=== PATIENT | female | born 1945 | race Caucasian/White ===

== ENCOUNTER 2021-08-26 23:25 | Observation (INO) | payer MEDICARE ==
--- NOTE | 2021-08-26 23:33 | ERPHSYRPT ---
- History of Present Illness Time Seen by Provider: 08/26/21 23:32 Source: patient Exam Limitations: clinical condition Physician History: This is a cachectic appearing 76-year-old white female patient of Dr. 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 She denies chest pain. She has not been exposed to any individual that is positive for COVID-19 infection that she is aware of. Patient has a history of COPD and hypertension. Patient is on Coumadin and she is on digoxin. She also has a history of elevated cholesterol. Patient denies fever. She denies abdominal pain. She denies nausea vomiting or diarrhea. Timing/Duration: day(s) (2-3) Activities at Onset: none Severity of Dyspnea-Max: moderate Severity of Dyspnea-Current: moderate Possible Cause: occasional episodes Modifying Factors: Improves With: coughing Associated Symptoms: cough, No chest pain/discomfort Allergies/Adverse Reactions: No Known Drug Allergies Allergy (Verified 08/27/21 03:03) Home Medications: Aspirin EC 81 mg [Ecotrin 81 mg] 81 mg PO DAILY 03/25/13 [History] Digoxin 0.125 mg Tablet [Lanoxin 0.125MG TABLET] 0.125 mg PO DAILY 12/29 [History] Furosemide 20 mg [Lasix 20 mg] 20 mg PO DAILY 03/25/13 [History] Potassium Chloride 20 Meq Tab [Potassium Chloride 20 MEQ TABLET] 20 meq PO DAILY 03/25/13 [History] Calcium Carbonate/Vitamin D3 [Calcium 500-Vit D3 125 Caplet] 1 each PO BID 03/21/15 [History] Fluticasone/Salmeterol [Advair Hfa 115-21 Mcg Inhaler] 8 gm IH BID 03/21/15 [History] Ipratropium/Albuterol Sulfate [Combivent Inhaler] 0 gm IH TID PRN 03/21/15 [History] Losartan Potassium 50 mg [Cozaar 50 MG] 50 mg PO QHS 03/21/15 [History] Metoprolol Succinate 50 mg [Toprol Xl 50 MG] 50 mg PO DAILY 03/21/15 [History] Pravastatin Sodium 40 mg PO QHS 03/21/15 [History] Warfarin Sodium 5 mg [Coumadin 5 MG] 2.5 mg PO 2XW 03/21/15 [History] Warfarin Sodium 5 mg [Coumadin 5 MG] 5 mg PO DAILY 03/21/15 [History] Hx Tetanus, Diphtheria Vaccination/Date Given: No Hx Influenza Vaccination/Date Given: No Hx Pneumococcal Vaccination/Date Given: No Travel Risk - International Travel Have you traveled outside of the country in past 3 weeks: No - Coronavirus Screening Are you exhibiting any of the following symptoms?: Yes Symptoms: Cough: New Onset, Shortness of Breath Close contact with a COVID-19 positive Pt in past 14-21 Days: No - Review of Systems Constitutional: Weakness Eyes: No Symptoms Ears, Nose, & Throat: No Symptoms Respiratory: Cough, Dyspnea Cardiac: No Symptoms, No Chest Pain Abdominal/Gastrointestinal: No Symptoms Genitourinary Symptoms: No Symptoms Musculoskeletal: No Symptoms Skin: No Symptoms Neurological: No Symptoms Psychological: No Symptoms Endocrine: No Symptoms Hematologic/Lymphatic: No Symptoms Immunological/Allergic: No Symptoms All Other Systems: Reviewed and Negative - Past Medical History Pertinent Past Medical History: Yes Neurological History: No Pertinent History ENT History: No Pertinent History Cardiac History: Arrhythmia, Hypertension Respiratory History: COPD Endocrine Medical History: No Pertinent History Musculoskeletal History: No Pertinent History GI Medical History: No Pertinent History History: No Pertinent History Psycho-Social History: No Pertinent History Female Reproductive Disorders: No Pertinent History - Past Surgical History Past Surgical History: Yes Cardiac: CABG, Other Gastrointestinal: No Pertinent History Genitourinary: No Pertinent History Musculoskeletal: No Pertinent History Female Surgical History: No Pertinent History Other Surgical History: tonsils as a child, open heart 2yrs ago - Social History Smoking Status: Never smoker How long have you smoked: all life Exposure to second hand smoke: Yes Drug Use: none Patient Lives Alone: No - Nursing Vital Signs Nursing Vital Signs: Initial Vital Signs Temperature 98.1 F 08/26/21 23:36 Pulse Rate 145 H 08/26/21 23:36 Respiratory Rate 28 H 08/26/21 23:36 Blood Pressure 147/97 08/26/21 23:36 O2 Sat by Pulse Oximetry 94 L 08/26/21 23:36 Pain Scale Pain Intensity 0 - Physical Exam General Appearance: mild distress, alert, anxiety, cachetic Eye Exam: PERRL/EOMI, eyes nml inspection Ears, Nose, Throat Exam: hearing grossly normal, normal ENT inspection, normal pharynx Neck Exam: normal inspection, non-tender, supple, full range of motion Respiratory Exam: normal breath sounds, lungs clear, airway intact, No chest tenderness, No respiratory distress Cardiovascular/Chest Exam: tachycardia, irregular Abdominal/Gastrointestinal Exam: soft, normal bowel sounds, No tenderness Rectal Exam: not done Extremity Exam: non-tender, normal range of motion, normal inspection Neurologic Exam: alert, oriented x 3, cooperative, screen operator II-XII nml as tested Skin Exam: normal color, warm, dry Lymphatic Exam: No adenopathy SpO2 Interpretation: borderline oxygenation O2 Delivery: Room Air - Course Nursing assessment & vital signs reviewed: Yes EKG Interpreted by Me: RATE (145), A-fib, Other (No acute ischemic changes. Patient has atrial fibrillation with RVR.) Ordered Tests: Active Orders 24 hr Category Date Time Status Sales Developer STAT Care 08/26/21 23:47 Active EKG-ER Only STAT Care 08/26/21 23:46 Active IV Insertion STAT Care 08/26/21 23:46 Active Oxygen-ED Only Nasal Cannula 2 lpm Care 08/26/21 23:46 Active CHEST 1 VIEW (PORTABLE) Stat Exams 08/27/21 00:50 Taken CHEST WITH CONTRAST [CT] Stat Exams 08/27/21 00:43 Taken Lactic Acid Stat Lab 08/26/21 23:48 Completed Lactic Acid Stat Lab 08/27/21 02:58 Completed TROPONIN Q3H Lab 08/27/21 03:03 Received TROPONIN Q3H Lab 08/27/21 05:46 Ordered TROPONIN Q3H Lab 08/27/21 08:46 Ordered TROPONIN Q3H Lab 08/27/21 11:46 Ordered Transfer Order Routine Transfer 08/27/21 Ordered Medication Summary Generic Name Dose Route Start Last Admin Trade Name Freq PRN Reason Stop Dose Admin Sodium Chloride 1,000 mls @ 100 mls/hr 08/26/21 23:45 08/26/21 23:55 Sodium Chloride 0.9% 1000 Ml IV 09/25/21 23:44 100 mls/hr .Q10H GARRETT Administration Diltiazem HCl 100 mls @ 5 mls/hr 08/26/21 23:59 08/27/21 00:05 Cardizem Drip 100 Mg/100 Ml D5w IV 09/25/21 23:58 5 mg/hr .Q20H PRN 5 mls/hr HEART RATE/ A-FIB Administration Protocol 5 MG/HR Ampicillin Sodium/Sulbactam 100 mls @ 300 mls/hr 08/27/21 03:11 Sodium 3 g/ Sodium Chloride IV 08/27/21 03:30 STAT ONE Discontinued Medications Generic Name Dose Route Start Last Admin Trade Name Freq PRN Reason Stop Dose Admin Ampicillin Sodium/Sulbactam Sodium Confirm 08/27/21 03:15 Ampicillin /Sulbactam 3 G/Vial Administered 08/27/21 03:16 Dose 3 g .ROUTE .STK-MED ONE Diltiazem HCl 15 mg 08/26/21 23:47 08/26/21 23:55 Diltiazem Hcl Iv 5 Mg/Ml Vial IV 08/26/21 23:48 15 mg STAT ONE Administration Diltiazem HCl Confirm 08/26/21 23:52 Diltiazem Hcl Iv 5 Mg/Ml Vial Administered 08/26/21 23:53 Dose 50 mg IV .STK-MED ONE Enoxaparin Sodium Confirm 08/27/21 03:20 Enoxaparin Sodium 60 Mg/0.6 Ml Syringe Administered 08/27/21 03:21 Dose 60 mg SQ .STK-MED ONE Furosemide 20 mg 08/27/21 03:09 Furosemide 20 Mg/Vial IV 08/27/21 03:10 STAT ONE Furosemide Confirm 08/27/21 03:15 Furosemide 40 Mg/4 Ml Vial Administered 08/27/21 03:16 Dose 40 mg .ROUTE .STK-MED ONE Sodium Chloride Confirm 08/27/21 03:16 Sodium Chloride 0.9% 100 Ml Bag Administered 08/27/21 03:17 Dose 100 mls @ ud .ROUTE .STK-MED ONE Lab/Rad Data: Laboratory Result Diagrams 08/26/21 00:06 08/26/21 00:06 Laboratory Results 08/27/21 08/27/21 08/26/21 Range/Units 02:58 00:01 00:06 WBC (4.0-10.5) K/mm3 RBC (4.1-5.4) M/mm3 Hgb (12.0-16.0) gm/dl Hct (35-47) % MCV (78-100) fl MCH (26-32) pg MCHC (32-36) g/dl RDW (11.5-14.0) % Plt Count (150-450) K/mm3 MPV (7.5-11.0) fl Gran % (36.0-66.0) % Eos # (Auto) (0-0.5) Absolute Lymphs (auto) (1.0-4.6) Absolute Monos (auto) (0.0-1.3) Lymphocytes % (24.0-44.0) % Monocytes % (0.0-12.0) % Eosinophils % (0.00-5.0) % Basophils % (0.0-0.4) % Absolute Granulocytes (1.4-6.9) Basophils # (0-0.4) PT (9.4-12.5) SECONDS INR (0.8-3.0) D-Dimer (215-500) ng/mL Sodium (137-145) mmol/L Potassium (3.5-5.1) mmol/L Chloride (98-107) mmol/L Carbon Dioxide (22-30) mmol/L Anion Gap (5-15) MEQ/L BUN (7-17) mg/dL Creatinine (0.52-1.04) mg/dL Estimated GFR ML/MIN Glucose (74-106) mg/dL Lactic Acid 1.2 2.3 H (0.4-2.0) Calcium (8.4-10.2) mg/dL Total Bilirubin (0.2-1.3) mg/dL AST (14-36) U/L ALT (0-35) U/L Alkaline Phosphatase (38-126) U/L Troponin I (0.000-0.034) ng/mL NT-Pro-B Natriuret Pep (0-1800) pg/mL Serum Total Protein (6.3-8.2) g/dL Albumin (3.5-5.0) g/dL Digoxin < 0.4 L (0.8-1.9) ng/mL Monoscreen (Negative) Influenza Type A Ag (NEGATIVE) Influenza Type B Ag (NEGATIVE) Group A Strep Antibody (NEGATIVE) 03/10/22 03/10/22 03/10/22 Range/Units 00:06 00:06 00:06 WBC 16.4 H (4.0-10.5) K/mm3 RBC 4.92 (4.1-5.4) M/mm3 Hgb 14.4 (12.0-16.0) gm/dl Hct 44.4 (35-47) % MCV 90.2 (78-100) fl MCH 29.3 (26-32) pg MCHC 32.4 (32-36) g/dl RDW 14.6 H (11.5-14.0) % Plt Count 272 (150-450) K/mm3 MPV 9.5 (7.5-11.0) fl Gran % 88.8 H (36.0-66.0) % Eos # (Auto) 0.03 (0-0.5) Absolute Lymphs (auto) 0.95 L (1.0-4.6) Absolute Monos (auto) 0.84 (0.0-1.3) Lymphocytes % 5.8 L (24.0-44.0) % Monocytes % 5.1 (0.0-12.0) % Eosinophils % 0.2 (0.00-5.0) % Basophils % 0.1 (0.0-0.4) % Absolute Granulocytes 14.57 H (1.4-6.9) Basophils # 0.02 (0-0.4) PT 17.8 H (9.4-12.5) SECONDS INR 1.51 (0.8-3.0) D-Dimer 1474 H* (215-500) ng/mL Sodium 139 (137-145) mmol/L Potassium 4.4 (3.5-5.1) mmol/L Chloride 103 (98-107) mmol/L Carbon Dioxide 25 (22-30) mmol/L Anion Gap 14.9 (5-15) MEQ/L BUN 30 H (7-17) mg/dL Creatinine 0.81 (0.52-1.04) mg/dL Estimated GFR > 60.0 ML/MIN Glucose 136 H (74-106) mg/dL Lactic Acid (0.4-2.0) Calcium 10.1 (8.4-10.2) mg/dL Total Bilirubin 0.80 (0.2-1.3) mg/dL AST 37 H (14-36) U/L ALT 22 (0-35) U/L Alkaline Phosphatase 107 (38-126) U/L Troponin I (0.000-0.034) ng/mL NT-Pro-B Natriuret Pep 4630 H (0-1800) pg/mL Serum Total Protein 7.2 (6.3-8.2) g/dL Albumin 4.3 (3.5-5.0) g/dL Digoxin (0.8-1.9) ng/mL Monoscreen (Negative) Influenza Type A Ag (NEGATIVE) Influenza Type B Ag (NEGATIVE) Group A Strep Antibody (NEGATIVE) 08/26/21 08/26/21 08/26/21 Range/Units 00:05 00:05 00:05 WBC (4.0-10.5) K/mm3 RBC (4.1-5.4) M/mm3 Hgb (12.0-16.0) gm/dl Hct (35-47) % MCV (78-100) fl MCH (26-32) pg MCHC (32-36) g/dl RDW (11.5-14.0) % Plt Count (150-450) K/mm3 MPV (7.5-11.0) fl Gran % (36.0-66.0) % Eos # (Auto) (0-0.5) Absolute Lymphs (auto) (1.0-4.6) Absolute Monos (auto) (0.0-1.3) Lymphocytes % (24.0-44.0) % Monocytes % (0.0-12.0) % Eosinophils % (0.00-5.0) % Basophils % (0.0-0.4) % Absolute Granulocytes (1.4-6.9) Basophils # (0-0.4) PT (9.4-12.5) SECONDS INR (0.8-3.0) D-Dimer (215-500) ng/mL Sodium (137-145) mmol/L Potassium (3.5-5.1) mmol/L Chloride (98-107) mmol/L Carbon Dioxide (22-30) mmol/L Anion Gap (5-15) MEQ/L BUN (7-17) mg/dL Creatinine (0.52-1.04) mg/dL Estimated GFR ML/MIN Glucose (74-106) mg/dL Lactic Acid (0.4-2.0) Calcium (8.4-10.2) mg/dL Total Bilirubin (0.2-1.3) mg/dL AST (14-36) U/L ALT (0-35) U/L Alkaline Phosphatase (38-126) U/L Troponin I (0.000-0.034) ng/mL NT-Pro-B Natriuret Pep (0-1800) pg/mL Serum Total Protein (6.3-8.2) g/dL Albumin (3.5-5.0) g/dL Digoxin (0.8-1.9) ng/mL Monoscreen NEGATIVE (Negative) Influenza Type A Ag NEGATIVE (NEGATIVE) Influenza Type B Ag NEGATIVE (NEGATIVE) Group A Strep Antibody NOT DETECTED (NEGATIVE) 08/26/21 Range/Units 00:00 WBC (4.0-10.5) K/mm3 RBC (4.1-5.4) M/mm3 Hgb (12.0-16.0) gm/dl Hct (35-47) % MCV (78-100) fl MCH (26-32) pg MCHC (32-36) g/dl RDW (11.5-14.0) % Plt Count (150-450) K/mm3 MPV (7.5-11.0) fl Gran % (36.0-66.0) % Eos # (Auto) (0-0.5) Absolute Lymphs (auto) (1.0-4.6) Absolute Monos (auto) (0.0-1.3) Lymphocytes % (24.0-44.0) % Monocytes % (0.0-12.0) % Eosinophils % (0.00-5.0) % Basophils % (0.0-0.4) % Absolute Granulocytes (1.4-6.9) Basophils # (0-0.4) PT (9.4-12.5) SECONDS INR (0.8-3.0) D-Dimer (215-500) ng/mL Sodium (137-145) mmol/L Potassium (3.5-5.1) mmol/L Chloride (98-107) mmol/L Carbon Dioxide (22-30) mmol/L Anion Gap (5-15) MEQ/L BUN (7-17) mg/dL Creatinine (0.52-1.04) mg/dL Estimated GFR ML/MIN Glucose (74-106) mg/dL Lactic Acid (0.4-2.0) Calcium (8.4-10.2) mg/dL Total Bilirubin (0.2-1.3) mg/dL AST (14-36) U/L ALT (0-35) U/L Alkaline Phosphatase (38-126) U/L Troponin I 0.029 (0.000-0.034) ng/mL NT-Pro-B Natriuret Pep (0-1800) pg/mL Serum Total Protein (6.3-8.2) g/dL Albumin (3.5-5.0) g/dL Digoxin (0.8-1.9) ng/mL Monoscreen (Negative) Influenza Type A Ag (NEGATIVE) Influenza Type B Ag (NEGATIVE) Group A Strep Antibody (NEGATIVE) - Progress Progress: improved, re-examined Air Movement: good Progress Note: 08/27/21 03:17 Medical decision making: This patient presented with atrial fibrillation with RVR. She has CHF. CAT scan of the chest shows no definite central pulmonary embolus. She has an esophagus that is patulous contains bubbly material concerning for reflux she has left greater than right basilar confluent opac ities which are compatible with aspiration or infection. She also presented with mild hypoxia. I spoke with Dr. Goldman, the patient's primary care physician, I reviewed the patient history, radiographic findings, EKG findings and results of the laboratory work-up. We will place the patient intensive care unit and provide her with Cardizem drip, intravenous Lasix, intravenous antibiotics, oxygen supplementation. I will give her a dose of Lovenox subcutaneously. I will repeat labs in the morning. Blood Culture(s) Obtained: Yes Antibiotics given: Yes Discussed with : Driss Counseled pt/family regarding: lab results, diagnosis, rad results - Departure Departure Disposition: In-patient Admission Clinical Impression: Atrial fibrillation with RVR, CHF (congestive heart failure), Hypoxia, Aspiration pneumonia Condition: Fair Critical Care Time: Yes Critical Care Time(excluding separately billable procedures): Critical 30-74 mins (45 minutes) Referrals: KIM GOLDMAN MD [Primary Care Provider] - Follow up/PCP as directed Instructions: Heart Failure
[2021-08-26] MEDS ORDERED: Sodium Chloride 0.9% 1000 ML 1,000 ML IV SCH (23:45)
[2021-08-26] MEDS ORDERED: Cardizem IV 50 MG/10 ML IV ONE ×2 (23:47→23:52)
[2021-08-26] MEDS ORDERED: Sodium Chloride 0.9% 1000 ML 1,000 ML ONE (23:52)
[2021-08-26] MEDS ORDERED: CARDIZEM DRIP 100 MG/100 ML D5W 100 ML IV PRN (23:59)
[2021-08-27] MEDS ORDERED: CARDIZEM DRIP 100 MG/100 ML D5W 100 ML IV ONE
[2021-08-27 00:11] LABS: Absolute Neutrophil Ct (ANC) 14.57 (1.4-6.9); Basophil (Absolute #) 0.02 (0-0.4); Eosinophil % 0.2 % (0.00-5.0); Eosinophil (Absolute #) 0.03 (0-0.5); Hematocrit 44.4 % (35-47); Hemoglobin 14.4 gm/dl (12.0-16.0); Lymphocyte (Absolute #) 0.95 (1.0-4.6); Lymphocytes % 5.8 % (24.0-44.0); Mean Cell Volume 90.2 fl (78-100); Mean Corpuscular Hemoglobin 29.3 pg (26-32); Mean Corpuscular Hgb Concent. 32.4 g/dl (32-36); Mean Platelet Volume 9.5 fl (7.5-11.0); Monocyte (Absolute #) 0.84 (0.0-1.3); Monocytes % 5.1 % (0.0-12.0); Neutrophil % 88.8 % (36.0-66.0); Platelet Count 272 K/mm3 (150-450); Red Blood Count 4.92 M/mm3 (4.1-5.4); Red Cell Distribution Width 14.6 % (11.5-14.0); White Blood Count 16.4 K/mm3 (4.0-10.5)
[2021-08-27 00:19] LABS: INR 1.51 (0.8-3.0); PROTIME 17.8 SECONDS (9.4-12.5)
[2021-08-27 00:31] LABS: ALBUMIN 4.3 g/dL (3.5-5.0); ALKALINE PHOSPHATASE 107 U/L (38-126); ANION GAP 14.9 MEQ/L (5-15); BLOOD UREA NITROGEN 30 mg/dL (7-17); CHLORIDE 103 mmol/L (98-107); Calcium 10.1 mg/dL (8.4-10.2); Carbon Dioxide 25 mmol/L (22-30); Creatinine 1 0.81 mg/dL (0.52-1.04); EST GLOMERULAR FILTRATION RATE > 60.0 ML/MIN; Glucose 136 mg/dL (74-106); NT PRO BNP 4630 pg/mL (0-1800); Potassium 4.4 mmol/L (3.5-5.1); SGOT/AST 37 U/L (14-36); SGPT/ALT 22 U/L (0-35); SODIUM 139 mmol/L (137-145); Total Protein 7.2 g/dL (6.3-8.2)
[2021-08-27 00:40] LABS: INFLUENZA A NEGATIVE (NEGATIVE); INFLUENZA B NEGATIVE (NEGATIVE)
[2021-08-27] MEDS ORDERED: Lasix 20 MG/2 ML IV ONE (03:09)
[2021-08-27] MEDS ORDERED: Unasyn 3 GM Vial*** 3 G in Sodium Chloride 0.9% 100 ML BAG 100 ML IV ONE (03:11)
[2021-08-27] MEDS ORDERED: Lasix 40 MG/4 ML ONE (03:15)
[2021-08-27] MEDS ORDERED: Unasyn 3 GM Vial ONE (03:15)
[2021-08-27] MEDS ORDERED: Sodium Chloride 0.9% 100 ML BAG 100 ML ONE (03:16)
[2021-08-27] MEDS ORDERED: ENOXAPARIN SODIUM SQ ONE ×2 (03:20→03:28)
[2021-08-27 04:16] LABS: INFLUENZA A NEGATIVE (NEGATIVE); INFLUENZA B NEGATIVE (NEGATIVE); RESPIRATORY SYNCTIAL VIRUS NEGATIVE (Negative); SARS-CoV-2 Xpert Express NEGATIVE (NEGATIVE)
[2021-08-27] MEDS ORDERED: Zofran 4 MG/2 ML VIAL IV PRN (05:01)
[2021-08-27] MEDS ORDERED: CARDIZEM DRIP 100 MG/100 ML D5W 100 ML IV PRN (05:01)
[2021-08-27] MEDS ORDERED: TYLENOL 325 MG PO PRN (05:01)
[2021-08-27] MEDS ORDERED: Unasyn 1.5GM Vial*** 1.5 G in Sodium Chloride 100ML MINI-BAG PLUS 100 ML IV SCH (05:01)
[2021-08-27] MEDS ORDERED: PROVENTIL 2.5 MG/3 ML NEB IH PRN (05:31)
--- NOTE | 2021-08-27 09:06 | PCM.HP ---
History of Present Illness - Chief Complaint Chief Complaint: afib with RVR History of Present Illness: is a 76 year old female who presented to the ER last night with complaints of shortness of breath and feeling poorly for several days, she has some nonproductive cough and no fever. states she has been compliant with her home meds, has a history of a fib and prior CABG, follows with Dr Matthew. - Review of Systems Constitutional: No Fever, No Chills Respiratory: Short Of Breath Cardiac: No Chest Pain Skin: No Rash Neurological: No Dizziness, No Focal Weakness, No Sensory Changes Medications & Allergies Home Medications: Home Medication List Aspirin EC 81 mg [Ecotrin 81 mg] 81 mg PO DAILY 03/25/13 [History Confirmed 03/21/15] Digoxin 0.125 mg Tablet [Lanoxin 0.125MG TABLET] 0.125 mg PO DAILY 03/25/13 [History Confirmed 03/21/15] Furosemide 20 mg [Lasix 20 mg] 20 mg PO DAILY 03/25/13 [History Confirmed 03/21/15] Potassium Chloride 20 Meq Tab [Potassium Chloride 20 MEQ TABLET] 20 meq PO DAILY 03/25/13 [History Confirmed 03/21/15] Calcium Carbonate/Vitamin D3 [Calcium 500-Vit D3 125 Caplet] 1 each PO BID 03/21/15 [History Confirmed 03/21/15] Fluticasone/Salmeterol [Advair Hfa 115-21 Mcg Inhaler] 8 gm IH BID 03/21/15 [History Confirmed 03/21/15] Ipratropium/Albuterol Sulfate [Combivent Inhaler] 0 gm IH TID PRN 03/21/15 [History Confirmed 03/21/15] Losartan Potassium 50 mg [Cozaar 50 MG] 50 mg PO QHS 03/21/15 [History Confirmed 03/21/15] Metoprolol Succinate 50 mg [Toprol Xl 50 MG] 50 mg PO DAILY 03/21/15 [History Confirmed 03/21/15] Pravastatin Sodium 40 mg PO QHS 03/21/15 [History Confirmed 03/21/15] Warfarin Sodium 5 mg [Coumadin 5 MG] 2.5 mg PO 2XW 03/21/15 [History Confirmed 03/21/15] Warfarin Sodium 5 mg [Coumadin 5 MG] 5 mg PO DAILY 03/21/15 [History Confirmed 03/21/15] ALPRAZolam [Xanax 0.5 mg] 0.5 mg PO HSPRN PRN #30 tablet 03/23/15 [Rx] Levofloxacin [Levofloxacin 250MG Tablet] 250 mg PO DAILY #7 tab 03/23/15 [Rx] Allergies/Adverse Reactions: Allergies Allergy/AdvReac Type Severity Reaction Status Date / Time No Known Drug Allergies Allergy Verified 08/27/21 03:03 - Past Medical History Past Medical History: Yes Neurological History: No Pertinent History ENT History: No Pertinent History Cardiac History: Congestive Heart Failure, Coronary Artery Disease Respiratory History: COPD Endocrine Medical History: No Pertinent History Musculoskelatal History: No Pertinent History GI Medical History: No Pertinent History History: Bladder Cancer Pyscho-Social History: Anxiety Reproductive Disorders: No Pertinent History - Female History Are you now?: No - Past Surgical History Past Surgical History: Yes (CABG) Neuro Surgical History: No Pertinent History Cardiac History: CABG Respiratory Surgery: No Pertinent History GI Surgical History: No Pertinent History Genitourinary Surgical Hx: Other Musculskeletal Surgical Hx: No Pertinent History Female Surgical History: No Pertinent History Other Surgical History: tonsils as a child, open heart 2yrs ago - Social History Smoking Status: Current every day smoker How long have you smoked: 60 yrs Exposure to second hand smoke: Yes Alcohol: Rarely Drug Use: none - Physical Exam Vital Signs: Vital Signs - 24 hr Temp Pulse Resp BP BP Pulse Ox 08/27/21 07:46 71 08/27/21 07:43 99.4 F 77 22 138/66 93 L 08/27/21 07:04 96 H 22 93 L 08/27/21 05:50 93 H 23 94 L 08/27/21 05:25 97.2 F 88 25 H 135/70 94 L 08/27/21 04:10 82 18 129/86 97 08/27/21 03:19 89 18 142/76 97 08/27/21 02:08 91 H 18 150/93 96 08/27/21 01:00 88 20 161/88 97 08/27/21 00:05 88 20 144/87 144/87 96 03/10/22 23:36 98.1 F 145 H 28 H 147/97 93 L General Appearance: no apparent distress, alert Neurologic Exam: alert, oriented x 3, cooperative, normal mood/affect, nml cerebellar function, nml station & gait, sensation nml, No motor deficits Respiratory Exam: rhonchi Cardiovascular Exam: irregular Gastrointestinal/Abdomen Exam: soft, normal bowel sounds, No tenderness, No mass Extremity Exam: normal inspection, normal range of motion, pelvis stable Skin Exam: normal color, warm, dry, No rash Results - Labs Lab/Micro Results: Lab Results-Last 24 Hours 08/26/21 08/26/21 08/26/21 Range/Units 00:00 00:05 00:05 WBC (4.0-10.5) K/mm3 RBC (4.1-5.4) M/mm3 Hgb (12.0-16.0) gm/dl Hct (35-47) % MCV (78-100) fl MCH (26-32) pg MCHC (32-36) g/dl RDW (11.5-14.0) % Plt Count (150-450) K/mm3 MPV (7.5-11.0) fl Gran % (36.0-66.0) % Eos # (Auto) (0-0.5) Absolute Lymphs (auto) (1.0-4.6) Absolute Monos (auto) (0.0-1.3) Lymphocytes % (24.0-44.0) % Monocytes % (0.0-12.0) % Eosinophils % (0.00-5.0) % Basophils % (0.0-0.4) % Absolute Granulocytes (1.4-6.9) Basophils # (0-0.4) PT (9.4-12.5) SECONDS INR (0.8-3.0) D-Dimer (215-500) ng/mL Sodium (137-145) mmol/L Potassium (3.5-5.1) mmol/L Chloride (98-107) mmol/L Carbon Dioxide (22-30) mmol/L Anion Gap (5-15) MEQ/L BUN (7-17) mg/dL Creatinine (0.52-1.04) mg/dL Estimated GFR ML/MIN Glucose (74-106) mg/dL Lactic Acid (0.4-2.0) Calcium (8.4-10.2) mg/dL Total Bilirubin (0.2-1.3) mg/dL AST (14-36) U/L ALT (0-35) U/L Alkaline Phosphatase (38-126) U/L Troponin I 0.029 (0.000-0.034) ng/mL NT-Pro-B Natriuret Pep (0-1800) pg/mL Serum Total Protein (6.3-8.2) g/dL Albumin (3.5-5.0) g/dL Digoxin (0.8-1.9) ng/mL Monoscreen (Negative) Influenza Type A Ag NEGATIVE (NEGATIVE) Influenza Type B Ag NEGATIVE (NEGATIVE) RSV (PCR) (Negative) SARS-CoV-2 (PCR) (NEGATIVE) Group A Strep Antibody NOT DETECTED (NEGATIVE) 08/26/21 08/26/21 08/26/21 Range/Units 00:05 00:06 00:06 WBC 16.4 H (4.0-10.5) K/mm3 RBC 4.92 (4.1-5.4) M/mm3 Hgb 14.4 (12.0-16.0) gm/dl Hct 44.4 (35-47) % MCV 90.2 (78-100) fl MCH 29.3 (26-32) pg MCHC 32.4 (32-36) g/dl RDW 14.6 H (11.5-14.0) % Plt Count 272 (150-450) K/mm3 MPV 9.5 (7.5-11.0) fl Gran % 88.8 H (36.0-66.0) % Eos # (Auto) 0.03 (0-0.5) Absolute Lymphs (auto) 0.95 L (1.0-4.6) Absolute Monos (auto) 0.84 (0.0-1.3) Lymphocytes % 5.8 L (24.0-44.0) % Monocytes % 5.1 (0.0-12.0) % Eosinophils % 0.2 (0.00-5.0) % Basophils % 0.1 (0.0-0.4) % Absolute Granulocytes 14.57 H (1.4-6.9) Basophils # 0.02 (0-0.4) PT (9.4-12.5) SECONDS INR (0.8-3.0) D-Dimer (215-500) ng/mL Sodium 139 (137-145) mmol/L Potassium 4.4 (3.5-5.1) mmol/L Chloride 103 (98-107) mmol/L Carbon Dioxide 25 (22-30) mmol/L Anion Gap 14.9 (5-15) MEQ/L BUN 30 H (7-17) mg/dL Creatinine 0.81 (0.52-1.04) mg/dL Estimated GFR > 60.0 ML/MIN Glucose 136 H (74-106) mg/dL Lactic Acid (0.4-2.0) Calcium 10.1 (8.4-10.2) mg/dL Total Bilirubin 0.80 (0.2-1.3) mg/dL AST 37 H (14-36) U/L ALT 22 (0-35) U/L Alkaline Phosphatase 107 (38-126) U/L Troponin I (0.000-0.034) ng/mL NT-Pro-B Natriuret Pep 4630 H (0-1800) pg/mL Serum Total Protein 7.2 (6.3-8.2) g/dL Albumin 4.3 (3.5-5.0) g/dL Digoxin (0.8-1.9) ng/mL Monoscreen NEGATIVE (Negative) Influenza Type A Ag (NEGATIVE) Influenza Type B Ag (NEGATIVE) RSV (PCR) (Negative) SARS-CoV-2 (PCR) (NEGATIVE) Group A Strep Antibody (NEGATIVE) 08/26/21 08/26/21 08/27/21 Range/Units 00:06 00:06 00:01 WBC (4.0-10.5) K/mm3 RBC (4.1-5.4) M/mm3 Hgb (12.0-16.0) gm/dl Hct (35-47) % MCV (78-100) fl MCH (26-32) pg MCHC (32-36) g/dl RDW (11.5-14.0) % Plt Count (150-450) K/mm3 MPV (7.5-11.0) fl Gran % (36.0-66.0) % Eos # (Auto) (0-0.5) Absolute Lymphs (auto) (1.0-4.6) Absolute Monos (auto) (0.0-1.3) Lymphocytes % (24.0-44.0) % Monocytes % (0.0-12.0) % Eosinophils % (0.00-5.0) % Basophils % (0.0-0.4) % Absolute Granulocytes (1.4-6.9) Basophils # (0-0.4) PT 17.8 H (9.4-12.5) SECONDS INR 1.51 (0.8-3.0) D-Dimer 1474 H* (215-500) ng/mL Sodium (137-145) mmol/L Potassium (3.5-5.1) mmol/L Chloride (98-107) mmol/L Carbon Dioxide (22-30) mmol/L Anion Gap (5-15) MEQ/L BUN (7-17) mg/dL Creatinine (0.52-1.04) mg/dL Estimated GFR ML/MIN Glucose (74-106) mg/dL Lactic Acid 2.3 H (0.4-2.0) Calcium (8.4-10.2) mg/dL Total Bilirubin (0.2-1.3) mg/dL AST (14-36) U/L ALT (0-35) U/L Alkaline Phosphatase (38-126) U/L Troponin I (0.000-0.034) ng/mL NT-Pro-B Natriuret Pep (0-1800) pg/mL Serum Total Protein (6.3-8.2) g/dL Albumin (3.5-5.0) g/dL Digoxin < 0.4 L (0.8-1.9) ng/mL Monoscreen (Negative) Influenza Type A Ag (NEGATIVE) Influenza Type B Ag (NEGATIVE) RSV (PCR) (Negative) SARS-CoV-2 (PCR) (NEGATIVE) Group A Strep Antibody (NEGATIVE) 08/27/21 08/27/21 08/27/21 Range/Units 02:58 03:03 03:30 WBC (4.0-10.5) K/mm3 RBC (4.1-5.4) M/mm3 Hgb (12.0-16.0) gm/dl Hct (35-47) % MCV (78-100) fl MCH (26-32) pg MCHC (32-36) g/dl RDW (11.5-14.0) % Plt Count (150-450) K/mm3 MPV (7.5-11.0) fl Gran % (36.0-66.0) % Eos # (Auto) (0-0.5) Absolute Lymphs (auto) (1.0-4.6) Absolute Monos (auto) (0.0-1.3) Lymphocytes % (24.0-44.0) % Monocytes % (0.0-12.0) % Eosinophils % (0.00-5.0) % Basophils % (0.0-0.4) % Absolute Granulocytes (1.4-6.9) Basophils # (0-0.4) PT (9.4-12.5) SECONDS INR (0.8-3.0) D-Dimer (215-500) ng/mL Sodium (137-145) mmol/L Potassium (3.5-5.1) mmol/L Chloride (98-107) mmol/L Carbon Dioxide (22-30) mmol/L Anion Gap (5-15) MEQ/L BUN (7-17) mg/dL Creatinine (0.52-1.04) mg/dL Estimated GFR ML/MIN Glucose (74-106) mg/dL Lactic Acid 1.2 (0.4-2.0) Calcium (8.4-10.2) mg/dL Total Bilirubin (0.2-1.3) mg/dL AST (14-36) U/L ALT (0-35) U/L Alkaline Phosphatase (38-126) U/L Troponin I 0.032 (0.000-0.034) ng/mL NT-Pro-B Natriuret Pep (0-1800) pg/mL Serum Total Protein (6.3-8.2) g/dL Albumin (3.5-5.0) g/dL Digoxin (0.8-1.9) ng/mL Monoscreen (Negative) Influenza Type A Ag NEGATIVE (NEGATIVE) Influenza Type B Ag NEGATIVE (NEGATIVE) RSV (PCR) NEGATIVE (Negative) SARS-CoV-2 (PCR) NEGATIVE (NEGATIVE) Group A Strep Antibody (NEGATIVE) 08/27/21 Range/Units 06:08 WBC (4.0-10.5) K/mm3 RBC (4.1-5.4) M/mm3 Hgb (12.0-16.0) gm/dl Hct (35-47) % MCV (78-100) fl MCH (26-32) pg MCHC (32-36) g/dl RDW (11.5-14.0) % Plt Count (150-450) K/mm3 MPV (7.5-11.0) fl Gran % (36.0-66.0) % Eos # (Auto) (0-0.5) Absolute Lymphs (auto) (1.0-4.6) Absolute Monos (auto) (0.0-1.3) Lymphocytes % (24.0-44.0) % Monocytes % (0.0-12.0) % Eosinophils % (0.00-5.0) % Basophils % (0.0-0.4) % Absolute Granulocytes (1.4-6.9) Basophils # (0-0.4) PT (9.4-12.5) SECONDS INR (0.8-3.0) D-Dimer (215-500) ng/mL Sodium (137-145) mmol/L Potassium (3.5-5.1) mmol/L Chloride (98-107) mmol/L Carbon Dioxide (22-30) mmol/L Anion Gap (5-15) MEQ/L BUN (7-17) mg/dL Creatinine (0.52-1.04) mg/dL Estimated GFR ML/MIN Glucose (74-106) mg/dL Lactic Acid (0.4-2.0) Calcium (8.4-10.2) mg/dL Total Bilirubin (0.2-1.3) mg/dL AST (14-36) U/L ALT (0-35) U/L Alkaline Phosphatase (38-126) U/L Troponin I 0.027 (0.000-0.034) ng/mL NT-Pro-B Natriuret Pep (0-1800) pg/mL Serum Total Protein (6.3-8.2) g/dL Albumin (3.5-5.0) g/dL Digoxin (0.8-1.9) ng/mL Monoscreen (Negative) Influenza Type A Ag (NEGATIVE) Influenza Type B Ag (NEGATIVE) RSV (PCR) (Negative) SARS-CoV-2 (PCR) (NEGATIVE) Group A Strep Antibody (NEGATIVE) - Radiology Impressions Radiology Exams & Impressions: Radiology Procedures Category Date Time Status CHEST 1 VIEW (PORTABLE) Stat Exams 08/27/21 00:50 Taken CHEST WITH CONTRAST [CT] Stat Exams 08/27/21 00:43 Taken - Other Procedures and Tests Respiratory Therapy 08/27/21 05:01 Oxygen Nasal Cannula 2 lpm 08/27/21 05:31 Respiratory Therapy Assessment DAILY 08/27/21 05:44 Smoking Cessation Education ONCE Assessment/Plan (1) Atrial fibrillation with RVR Current Visit: Yes Status: Acute Assessment & Plan: INR subtherapeutic on arrival, patient reports she is compliant with home digoxin 125mcg daily and lopressor 25mg bid as well as warfarin. will cover with loxenox, currently on cardizem drip at 5mg/hr, plan to increase lopressor to 50mg bid and hold losartan, cardiology consult with Dr Matthew as well Code(s): I48.91 - UNSPECIFIED ATRIAL FIBRILLATION (2) Pneumonia Current Visit: No Status: Acute Assessment & Plan: on Unasyn, continue current therapy, ?aspiration on xray but yvonne lower lobes Code(s): J18.9 - PNEUMONIA, UNSPECIFIED ORGANISM (3) COPD (chronic obstructive pulmonary disease) Current Visit: No Status: Acute
--- NOTE | 2021-08-27 09:07 | XRAY ---
Indication: Short of breath. Elevated d-dimer. COPD. Multiple contiguous images obtained through the chest using 80 cc Isovue 370 contrast and PE protocol. Comparison: September 26, 2016. There is good opacification of the pulmonary arteries to include the lobar and segmental branches. No pulmonary embolus. Heart is now enlarged again demonstrating CABG surgery. Aorta remains moderately arteriosclerotic without aneurysm/dissection. Again a few tiny right hilar calcified nodes. No pathologic mediastinal/hilar lymphadenopathy. Visualized esophagus demonstrates minimal debris presumed from gastroesophageal reflux. Lungs again demonstrates diffuse centrilobular pulmonary emphysema with scattered fibrosis/scarring and small right upper lobe calcified granuloma. New left lower lobe patchy consolidating airspace disease and tiny effusion. Worsening right lower lobe and new right middle lobe subsegmental atelectasis/scarring. Bony thorax intact again with osteopenia and minimal degenerative changes throughout the spine. Limited upper abdomen unremarkable. Impression: 1. Negative pulmonary embolus. 2. New left lower lobe consolidating airspace disease and tiny effusion. Rule out aspiration pneumonia. 3. New right middle and right lower lobe subsegmental atelectasis/scarring. 4. New cardiomegaly. 5. Again diffuse pulmonary emphysema, scattered fibrosis/scarring, and old granulomatous disease. Comment: Preliminary interpretation made by [facility]. No critical discrepancy.
--- NOTE | 2021-08-27 09:09 | XRAY ---
Indication: Short of breath. Comparison: August 20, 2019. Portable chest again demonstrates COPD with scattered fibrosis/scarring. New left lower lobe airspace disease concerning for aspiration pneumonia. Heart now borderline enlarged again with CABG. Bony thorax intact.
[2021-08-27] MEDS ORDERED: NON-FORMULARY ITEM (Potassium Chloride 20 Meq Tab [Potassium Chloride 20 Meq Tablet] 20 ME PO SCH (10:00)
[2021-08-27] MEDS ORDERED: NON-FORMULARY ITEM (Ipratropium/Albuterol Sulfate [Combivent Inhaler] 14.7 GM Aer.W.Adap) IH SCH (10:00)
[2021-08-27] MEDS ORDERED: DUONEB 0.5-3 MG/3 ml Neb IH PRN (10:00)
[2021-08-27] MEDS ORDERED: Lasix 20 MG/2 ML IV SCH (10:00)
[2021-08-27] MEDS: Lopressor 50 MG PO SCH ×2 (10:21→21:15)
[2021-08-27] MEDS: ECOTRIN 81 MG PO SCH (10:21)
[2021-08-27] MEDS: Klor Con 10 MEQ PO SCH ×2 (10:21→21:16)
[2021-08-27] MEDS: Sodium Chloride 0.9% 1000 ML 1,000 ML IV SCH (10:22)
[2021-08-27] MEDS: ENOXAPARIN SODIUM SQ SCH ×2 (10:22→21:17)
[2021-08-27] MEDS: LASIX 20 MG PO SCH ×2 (10:22→10:24)
[2021-08-27] MEDS: Cardizem 30 MG PO SCH ×3 (10:22→21:15)
[2021-08-27] MEDS: Lanoxin 0.125MG TABLET PO SCH (10:33)
[2021-08-27] MEDS: Unasyn 1.5GM Vial*** 1.5 G in Sodium Chloride 100ML MINI-BAG PLUS 100 ML IV SCH ×3 (11:59→23:50)
[2021-08-27] MEDS: Nicoderm CQ 21 MG TOP SCH (15:38)
[2021-08-27] MEDS: Coumadin 5 MG PO SCH (17:55)
[2021-08-27] MEDS ORDERED: Coumadin 5 MG PO ONE (20:09)
[2021-08-27] MEDS: Zocor 10MG PO SCH (21:48)
[2021-08-27] MEDS ORDERED: NON-FORMULARY ITEM (Pravastatin Sodium [Pravastatin Sodium] 40 MG Tablet) PO SCH (22:00)
[2021-08-28] MEDS: Sodium Chloride 0.9% 1000 ML 1,000 ML IV SCH ×2 (00:10→22:14)
[2021-08-28 06:16] LABS: Absolute Neutrophil Ct (ANC) 9.44 (1.4-6.9); Basophil (Absolute #) 0.02 (0-0.4); Eosinophil % 1.5 % (0.00-5.0); Eosinophil (Absolute #) 0.18 (0-0.5); Hemoglobin 13.4 gm/dl (12.0-16.0); Lymphocyte (Absolute #) 1.46 (1.0-4.6); Lymphocytes % 12.3 % (24.0-44.0); Mean Cell Volume 91.3 fl (78-100); Mean Corpuscular Hemoglobin 29.1 pg (26-32); Mean Corpuscular Hgb Concent. 31.9 g/dl (32-36); Mean Platelet Volume 9.8 fl (7.5-11.0); Monocytes % 6.7 % (0.0-12.0); Neutrophil % 79.3 % (36.0-66.0); Platelet Count 235 K/mm3 (150-450); Red Cell Distribution Width 14.6 % (11.5-14.0); White Blood Count 11.9 K/mm3 (4.0-10.5)
[2021-08-28] MEDS: Unasyn 1.5GM Vial*** 1.5 G in Sodium Chloride 100ML MINI-BAG PLUS 100 ML IV SCH ×3 (06:17→17:56)
[2021-08-28 06:26] LABS: PROTIME 23.6 SECONDS (9.4-12.5)
[2021-08-28 06:41] LABS: ALBUMIN 3.9 g/dL (3.5-5.0); ALKALINE PHOSPHATASE 96 U/L (38-126); ANION GAP 11.8 MEQ/L (5-15); BLOOD UREA NITROGEN 21 mg/dL (7-17); CHLORIDE 101 mmol/L (98-107); Calcium 9.3 mg/dL (8.4-10.2); Carbon Dioxide 28 mmol/L (22-30); EST GLOMERULAR FILTRATION RATE > 60.0 ML/MIN; Glucose 80 mg/dL (74-106); NT PRO BNP 4320 pg/mL (0-1800); Potassium 4.1 mmol/L (3.5-5.1); SGOT/AST 30 U/L (14-36); SGPT/ALT 14 U/L (0-35); SODIUM 138 mmol/L (137-145); Total Protein 6.7 g/dL (6.3-8.2)
[2021-08-28] MEDS: Klor Con 10 MEQ PO SCH ×2 (10:13→22:10)
[2021-08-28] MEDS: Lopressor 50 MG PO SCH ×2 (10:13→22:10)
[2021-08-28] MEDS: Cardizem 30 MG PO SCH ×3 (10:13→22:10)
[2021-08-28] MEDS: ECOTRIN 81 MG PO SCH (10:13)
[2021-08-28] MEDS: LASIX 20 MG PO SCH (10:13)
[2021-08-28] MEDS: Lanoxin 0.125MG TABLET PO SCH (10:14)
[2021-08-28] MEDS: Nicoderm CQ 21 MG TOP SCH (10:15)
[2021-08-28] MEDS: ENOXAPARIN SODIUM SQ SCH (12:42)
--- NOTE | 2021-08-28 13:49 | PCM.NOTE ---
Date and Time: 08/28/21 1344 Subjective Assessment: Patient c/o no appetite had 1 bite of sandwich. Is restless but does not want medication. Dtr and son at bedside. Is on Unasyn for pneumonia. Has a loose cough ,no dyspnea.Dr Matthew consulted and gave Warfarin orders to increase to 7.5mg daily and retest in 3 days-on Monday and call his office for instructions to change to Eliquis or Xarelto. Objective Exam General Appearance: anxiety (wants to go home) Neurologic Exam: alert, oriented x 3 Skin Exam: normal color Eye Exam: eyes nml inspection Ears, Nose, Throat Exam: normal ENT inspection Respiratory Exam: crackles/rales (left base) Cardiovascular Exam: irregular (rate 90) Gastrointestinal/Abdomen Exam: soft Extremity Exam: normal inspection OBJECTIVE DATA Vital Signs: Vital Signs - 24 hr Temp Pulse Resp BP BP Pulse Ox 08/28/21 12:00 97.7 F 77 29 H 141/79 96 08/28/21 10:14 107 H 167/77 08/28/21 08:00 97.5 F 97 H 28 H 167/77 97 08/28/21 07:10 96 H 24 97 08/28/21 04:06 97.8 F 81 30 H 137/81 95 08/27/21 23:40 98.2 F 66 21 126/64 94 L 08/27/21 19:13 97.6 F 67 20 125/57 94 L 08/27/21 18:47 67 20 94 L 08/27/21 16:00 98.3 F 72 18 175/71 95 Pain Assessment - Last Documented Pain Intensity 0 Intake and Output: Intake & Output 08/26/21 08/27/21 08/28/21 08/29/21 11:59 11:59 11:59 12:59 Intake Total 1257 Output Total 400 Balance -400 1257 Weight 44 kg 43.1 kg Lab Results: Lab Results-Last 24 Hours 08/28/21 08/28/21 08/28/21 Range/Units 05:40 05:40 05:40 WBC 11.9 H (4.0-10.5) K/mm3 RBC 4.60 (4.1-5.4) M/mm3 Hgb 13.4 (12.0-16.0) gm/dl Hct 42.0 (35-47) % MCV 91.3 (78-100) fl MCH 29.1 (26-32) pg MCHC 31.9 L (32-36) g/dl RDW 14.6 H (11.5-14.0) % Plt Count 235 (150-450) K/mm3 MPV 9.8 (7.5-11.0) fl Gran % 79.3 H (36.0-66.0) % Eos # (Auto) 0.18 (0-0.5) Absolute Lymphs (auto) 1.46 (1.0-4.6) Absolute Monos (auto) 0.80 (0.0-1.3) Lymphocytes % 12.3 L (24.0-44.0) % Monocytes % 6.7 (0.0-12.0) % Eosinophils % 1.5 (0.00-5.0) % Basophils % 0.2 (0.0-0.4) % Absolute Granulocytes 9.44 H (1.4-6.9) Basophils # 0.02 (0-0.4) PT 23.6 H (9.4-12.5) SECONDS INR 2.00 (0.8-3.0) Sodium 138 (137-145) mmol/L Potassium 4.1 (3.5-5.1) mmol/L Chloride 101 (98-107) mmol/L Carbon Dioxide 28 (22-30) mmol/L Anion Gap 11.8 (5-15) MEQ/L BUN 21 H (7-17) mg/dL Creatinine 0.70 (0.52-1.04) mg/dL Estimated GFR > 60.0 ML/MIN Glucose 80 (74-106) mg/dL Calcium 9.3 (8.4-10.2) mg/dL Total Bilirubin 1.30 (0.2-1.3) mg/dL AST 30 (14-36) U/L ALT 14 (0-35) U/L Alkaline Phosphatase 96 (38-126) U/L NT-Pro-B Natriuret Pep 4320 H (0-1800) pg/mL Serum Total Protein 6.7 (6.3-8.2) g/dL Albumin 3.9 (3.5-5.0) g/dL Radiology Exams: Radiology Procedures Category Date Time Status CHEST 1 VIEW (PORTABLE) Stat Exams 08/27/21 00:50 Completed CHEST WITH CONTRAST [CT] Stat Exams 08/27/21 00:43 Completed Assessment/Plan (1) Pneumonia Current Visit: No Status: Acute Qualifiers: Pneumonia type: due to unspecified organism Laterality: left Lung location: lower lobe of lung Qualified Code(s): J18.9 - Pneumonia, unspecified organism Assessment & Plan: continue neb tx and IV Zosyn Code(s): J18.9 - PNEUMONIA, UNSPECIFIED ORGANISM (2) CHF (congestive heart failure) Current Visit: Yes Status: Chronic Code(s): I50.9 - HEART FAILURE, UNSPECIFIED (3) Hypoxia Current Visit: Yes Status: Chronic Assessment & Plan: on 2Lresp to follow ,neb tx tid Code(s): R09.02 - HYPOXEMIA (4) Decreased appetite Current Visit: Yes Status: Acute Assessment & Plan: add Remeron 15mg Code(s): R63.0 - ANOREXIA
[2021-08-28] MEDS: PROVENTIL 2.5 MG/3 ML NEB IH SCH ×2 (14:07→19:33)
[2021-08-28] MEDS: Coumadin 5 MG PO SCH (17:59)
[2021-08-28] MEDS ORDERED: Coumadin 5 MG PO SCH (18:00)
[2021-08-28] MEDS ORDERED: MIRTAZAPINE PO SCH (22:00)
[2021-08-28] MEDS: Zocor 10MG PO SCH (22:10)
[2021-08-29] MEDS: Unasyn 1.5GM Vial*** 1.5 G in Sodium Chloride 100ML MINI-BAG PLUS 100 ML IV SCH ×2 (00:13→07:16)
[2021-08-29 05:12] VITALS: O2SAT 95
[2021-08-29 06:08] LABS: Absolute Neutrophil Ct (ANC) 6.72 (1.4-6.9); Basophil (Absolute #) 0.02 (0-0.4); Eosinophil % 2.9 % (0.00-5.0); Eosinophil (Absolute #) 0.27 (0-0.5); Hematocrit 40.1 % (35-47); Hemoglobin 12.7 gm/dl (12.0-16.0); Lymphocyte (Absolute #) 1.52 (1.0-4.6); Lymphocytes % 16.2 % (24.0-44.0); Mean Cell Volume 91.1 fl (78-100); Mean Corpuscular Hemoglobin 28.9 pg (26-32); Mean Corpuscular Hgb Concent. 31.7 g/dl (32-36); Mean Platelet Volume 9.4 fl (7.5-11.0); Monocyte (Absolute #) 0.88 (0.0-1.3); Monocytes % 9.4 % (0.0-12.0); Neutrophil % 71.3 % (36.0-66.0); Platelet Count 241 K/mm3 (150-450); Red Cell Distribution Width 14.5 % (11.5-14.0); White Blood Count 9.4 K/mm3 (4.0-10.5)
[2021-08-29 06:11] LABS: INR 2.92 (0.8-3.0); PROTIME 34.4 SECONDS (9.4-12.5)
[2021-08-29 06:24] LABS: ANION GAP 10.4 MEQ/L (5-15); BLOOD UREA NITROGEN 18 mg/dL (7-17); CHLORIDE 104 mmol/L (98-107); Calcium 9.1 mg/dL (8.4-10.2); Carbon Dioxide 27 mmol/L (22-30); Creatinine 1 0.74 mg/dL (0.52-1.04); EST GLOMERULAR FILTRATION RATE > 60.0 ML/MIN; Glucose 86 mg/dL (74-106); NT PRO BNP 3780 pg/mL (0-1800); SODIUM 137 mmol/L (137-145)
[2021-08-29] MEDS: PROVENTIL 2.5 MG/3 ML NEB IH SCH (07:15)
[2021-08-29] MEDS: Lopressor 50 MG PO SCH (07:58)
[2021-08-29] MEDS: Cardizem 30 MG PO SCH (07:58)
[2021-08-29] MEDS: ECOTRIN 81 MG PO SCH (07:58)
[2021-08-29] MEDS: LASIX 20 MG PO SCH (07:58)
[2021-08-29] MEDS: Lanoxin 0.125MG TABLET PO SCH (07:58)
[2021-08-29 07:59] VITALS: BP 176/81; PULSE 69
[2021-08-29] MEDS: Klor Con 10 MEQ PO SCH (07:59)
[2021-08-29] MEDS: Nicoderm CQ 21 MG TOP SCH (07:59)
--- NOTE | 2021-08-29 10:27 | PCM.DS ---
Discharge Summary Date of Admission: 08/27/21 04:57 Date of Discharge: 08/29/21 Admitting Physician: KIM NY Consults: Consults on Case 08/27/21 09:00 Consult Cardiology ROUTINE Primary Care Provider: KIM NY Allergies Allergies No Known Drug Allergies Allergy (Verified 08/27/21 03:03) Hospital Summary - Hospital Course Hospital Course: Patient is a 76 yo female with CAD,S/P CABG,CHF,Afib and COPD who presented to ER with increasing sob,Dg pneumonia LLL and elevated BNP. Senior Pl Sql Developer is Dr Matthew who consulted and is planning to change Warfarin to Xarelto or Eliquis . She is to call his office on Monday. INR this morning was 2.9 (last 3 doses of warfarin 5mg,5mg,7.5mg). Pneumonia responded to Zosyn. WBC on adm was 16,400 then 11,900 and this morning 9,400. Patient has been afebrile ,no chills or diaphoresis,energetic fussing to go home even yesterday morning. Blood culture 1 of 2 positive gram pos cocci felt to be contaminent. Lactic acid was 1.2 after hydration in ER. Patient was discharged and family/daughter cautioned re the blood culture and to return to ER if any fever or lethargyetc. Patient will follow with Dr Ny and Dr Matthew soon. - Vitals & Intake/Output Vital Signs: Vital Signs Temperature 97.5 F 08/29/21 08:50 Pulse Rate 69 08/29/21 08:50 Respiratory Rate 18 08/29/21 08:50 Blood Pressure 176/81 08/29/21 08:50 O2 Sat by Pulse Oximetry 95 08/29/21 08:50 Intake & Output: Intake & Output 08/26/21 08/27/21 08/28/21 08/29/21 11:59 11:59 11:59 12:59 Intake Total 1257 633 Output Total 400 Balance -400 1257 633 Weight 44 kg 43.1 kg 45.5 kg - Lab Result Diagrams: 08/29/21 05:28 08/29/21 05:28 Lab Results-Last 24 Hrs: Lab Results-Last 24 Hours 08/29/21 08/29/21 08/29/21 Range/Units 05:28 05:28 05:28 WBC 9.4 (4.0-10.5) K/mm3 RBC 4.40 (4.1-5.4) M/mm3 Hgb 12.7 (12.0-16.0) gm/dl Hct 40.1 (35-47) % MCV 91.1 (78-100) fl MCH 28.9 (26-32) pg MCHC 31.7 L (32-36) g/dl RDW 14.5 H (11.5-14.0) % Plt Count 241 (150-450) K/mm3 MPV 9.4 (7.5-11.0) fl Gran % 71.3 H (36.0-66.0) % Eos # (Auto) 0.27 (0-0.5) Absolute Lymphs (auto) 1.52 (1.0-4.6) Absolute Monos (auto) 0.88 (0.0-1.3) Lymphocytes % 16.2 L (24.0-44.0) % Monocytes % 9.4 (0.0-12.0) % Eosinophils % 2.9 (0.00-5.0) % Basophils % 0.2 (0.0-0.4) % Absolute Granulocytes 6.72 (1.4-6.9) Basophils # 0.02 (0-0.4) PT 34.4 H (9.4-12.5) SECONDS INR 2.92 D (0.8-3.0) Sodium 137 (137-145) mmol/L Potassium 4.0 (3.5-5.1) mmol/L Chloride 104 (98-107) mmol/L Carbon Dioxide 27 (22-30) mmol/L Anion Gap 10.4 (5-15) MEQ/L BUN 18 H (7-17) mg/dL Creatinine 0.74 (0.52-1.04) mg/dL Estimated GFR > 60.0 ML/MIN Glucose 86 (74-106) mg/dL Calcium 9.1 (8.4-10.2) mg/dL NT-Pro-B Natriuret Pep 3780 H (0-1800) pg/mL Micro Results-Entire Visit: Microbiology 08/26/21 00:06 Blood Culture Gram Stain - Final Blood Blood Culture - Preliminary Coagulase Negative Staph. Possible Contaminant. Clinical judgement required. NO FURTHER WORKUP WILL BE PERFORMED UNLESS PHYSICIAN REQUESTED WITHIN THE NEXT 72 HOURS 08/26/21 00:05 Blood Culture - Preliminary Blood NO GROWTH TO DATE - Procedures and Test Procedures and Tests throughout Hospitalization: Therapy Orders & Screens 08/27/21 05:01 EKG REPEAT IN AM Comment: Oxygen Nasal Cannula 2 lpm Comment: Respiratory Therapy Consult ROUTINE Comment: Reason For Exam: 08/27/21 05:31 Respiratory Therapy Assessment DAILY Comment: 08/27/21 05:44 Smoking Cessation Education ONCE Comment: Diagnosis: afib with RVR Smoking Status: Current every day smoker How long have you smoked: 60 yrs Have you smoked in the past 12 months: Yes Approximately how many cigarettes per day: less than 1 pack Do you dip or chew tobacco: No Discharge Exam General Appearance: no apparent distress, anxiety (wanting to leave hospital), thin Neurologic Exam: alert, oriented x 3 Respiratory Exam: crackles/rales (fine crackles bases per nursing), other (no dyspnea ambulating down the [place]) Cardiovascular Exam: other (rate 69) Final Diagnosis/Problem List - Final Discharge Diagnosis/Problem (1) Pneumonia Status: Acute Assessment & Plan: improved ,WBC down to normal this morning will take Augmentin 500mg TID WITH food ,call if intolerance Code(s): J18.9 - PNEUMONIA, UNSPECIFIED ORGANISM (2) CHF (congestive heart failure) Status: Chronic Assessment & Plan: Dr Matthew managing still fine crackles but improved BNP-still 3780. is on dig Code(s): I50.9 - HEART FAILURE, UNSPECIFIED (3) Hypoxia Status: Chronic Assessment & Plan: O2 at home prior to this admission Code(s): R09.02 - HYPOXEMIA (4) Decreased appetite Status: Acute Assessment & Plan: discussed Remeron and given Rx last night but patient refused Code(s): R63.0 - ANOREXIA - Discharge Disposition: Home, Self-Care Condition: Fair Prescriptions: New Amoxicillin/Potassium Clav [Augmentin 500-125 Tablet] 1 each PO TID #15 tablet Continue Aspirin EC 81 mg [Ecotrin 81 mg] 81 mg PO DAILY Furosemide 20 mg [Lasix 20 mg] 20 mg PO DAILY Potassium Chloride 20 Meq Tab [Potassium Chloride 20 MEQ TABLET] 20 meq PO BID Digoxin 0.125 mg Tablet [Lanoxin 0.125MG TABLET] 0.125 mg PO DAILY Ipratropium/Albuterol Sulfate [Combivent Inhaler] 1 canister IH TID PRN Losartan Potassium 50 mg [Cozaar 50 MG] 50 mg PO QHS Pravastatin Sodium 40 mg PO QHS Metoprolol Succinate 50 mg [Toprol Xl 50 MG] 50 mg PO BID Calcium Carbonate/Vitamin D3 [Calcium 500-Vit D3 125 Caplet] 1 each PO BID Warfarin Sodium 5 mg [Coumadin 5 MG] 5 mg PO DAILY Warfarin Sodium 5 mg [Coumadin 5 MG] 2.5 mg PO 2XW Instructions: Atrial Fibrillation (DC), Aspiration Pneumonia (DC) Additional Instructions: MUST TAKE AUGMENTIN WITH FOOD TAKE COUMADIN 2.5MG TONIGHT ONLY DR MATTHEW TO DOSE ANTICOAGULANT CALL DR MATTHEW'S OFFICE TOMORROW. HE WOULD LIKE FOR YOU TO CALL YOUR INSURANCE COMPANY TO SEE IF THEY WILL COVER ELIQUIS (GENERIC-APIXABAN) OR XARELTO (GENERIC-RIVAROXABAN) IF THEY DO HE WOULD LIKE TO SWITCH YOU TO ONE OF THOSE. THE BENEFIT WOULD BE THAT YOUR DOSE DOES NOT CHANGE EVERY WEEK AND YOU WON'T HAVE TO TEST YOUR BLOOD WEEKLY CHECK PULSE OX EVERY 4 HRS FOR SAT >90% DR SALDANA WOULD LIKE FOR YOU TO DO NEBULIZER TREATMENTS AT HOME CONTINUE WEARING 2L OXYGEN AT NIGHT WOULD LIKE FOR YOU TO WEAR DURING THE DAY ALSO UNTIL ANTIBIOTIC IS FINISHED Follow up with: KIM [place] MD [Primary Care Provider] - 09/02/21 10:00 am CAREY MATTHEW [ACTIVE STAFF] - 09/02/21 3:45 pm
--- NOTE | 2021-08-30 08:46 | CONS ---
CONSULT DATE: 08/27/2021 BRIEF HISTORY: This is a 76-year-old female with known history of coronary artery disease post coronary artery bypass surgery and history of permanent atrial fibrillation. He was admitted on 08/26/2021 with history of progressive shortness of breath 72 hours prior to the admission. She was initially tachycardic with underlying atrial fibrillation and was placed on Cardizem with the heart rate slowing down. She denies any chest pain. Her troponin I's have been normal. Unfortunately, she continues to smoke. She has underlying chronic obstructive pulmonary disease. CARDIAC RISK FACTORS: Negative for diabetes. Positive for hypertension. She continues to smoke. She has hyperlipidemia. MEDICATIONS: Her medications are aspirin, digoxin, furosemide, potassium, calcium carbonate, Advair, Combivent, losartan, metoprolol, pravastatin, Coumadin. 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 RESPIRATORY: She has chronic obstructive lung disease. GI: No history of peptic ulcer. She has history of reflux. : She has history of bladder tumor and has had previous BCG (Bacillus Calmette-Ambika) therapy. PERIPHERAL VASCULAR: No history of deep vein thrombosis. She has occasional leg pain. SOCIAL HISTORY: She denies any ETOH use. PHYSICAL EXAMINATION: Blood pressure 140/80 with a heart rate of 85 in atrial fibrillation, respirations about 18. GENERAL: The patient is an elderly female who is alert, frail, appears to be chronically ill. HEENT: Nonicteric sclera. Slightly pale conjunctivae. NECK: External jugulars are prominent. No carotid bruit. CHEST: The breath sounds are diminished bilaterally with rhonchi in both lung queen. CARDIAC: Heart tones are variable. The rhythm is atrial fibrillation with a grade 2/6 mid systolic murmur with a well healed sternotomy scar. ABDOMEN: Soft with normal bowel sounds. EXTREMITIES: No significant edema. Decreased distal pulses. LAB DATA AND DIAGNOSTIC TESTS: The EKG on 08/27/[address] scan of the chest some subsegmental atelectasis, scarring with diffuse changes of pulmonary emphysema and fibrosis. The digoxin level is 0.4. Troponin I is 0.027. IMPRESSION: 1) In essence the patient has permanent atrial fibrillation initially presented with tachycardia but now currently controlled. Strategy would be heart rate control and anticoagulation. I told her to inquire her insurance coverage for Xarelto and Eliquis as it has been somewhat difficult getting her Coumadin in therapeutic range. The patient has been started on Cardizem which will be combined with beta-blockers. I did mention to her that should she develop any dizzy spells to let us know right away. 2) Coronary artery disease post coronary artery bypass surgery, angina free. 3) Chronic obstructive pulmonary disease with exacerbation. I emphasized about the need to quit smoking her reduce her risk for future cardiovascular events. 4) Hyperlipidemia. Continue with statin therapy. I will see her in the office upon discharge.
== END 2021-08-29 10:07 | disposition home or self-care (01) ==
LOC: ED 23:25 → ICU 08-27 04:57 → INTOOBSV 08-27 04:57 → MED SURG 08-27 15:18
PROVIDERS: ADMIT Family Medicine; ATTEND Family Medicine
DX: J18.9 Pneumonia, unspecified organism (principal); I11.0 Hypertensive heart disease with heart failure; I50.9 Heart failure, unspecified; R09.02 Hypoxemia; R63.0 Anorexia; I25.10 Atherosclerotic heart disease of native coronary artery without angina pectoris; J44.9 Chronic obstructive pulmonary disease, unspecified; E78.5 Hyperlipidemia, unspecified; I48.91 Unspecified atrial fibrillation; Z79.899 Other long term (current) drug therapy; Z79.01 Long term (current) use of anticoagulants; Z72.0 Tobacco use; Z20.828 Contact with and (suspected) exposure to other viral communicable diseases
CPT/HCPCS: 0241U; 36000; 36415; 71045; 71260; 80048; 80053; 80162; 83605; 83880; 84146; 84484; 85025; 85379; 85610; 86308; 87040; 87400; 87651; 93005; 93041; 93268; 94640; 94762; 96365; 96366; 96368; 96372; 96374; 96375; 99285; 99291; G0378; J0295; J1650; J1940; J7609; A9270-GY

== ENCOUNTER 2022-01-13 20:25 | Observation (INO) | payer MEDICARE ==
[2022-01-13 20:53] LABS: Absolute Neutrophil Ct (ANC) 7.67 x10^3/uL (1.4-6.9); Basophil (Absolute #) 0.04 x10^3/uL (0-0.4); Eosinophil % 0.6 % (0.00-5.0); Eosinophil (Absolute #) 0.06 x10^3/uL (0-0.5); Hemoglobin 15.2 g/dL (12.0-16.0); Lymphocyte (Absolute #) 1.15 x10^3/uL (1.0-4.6); Mean Cell Volume 89.9 fL (78-100); Mean Corpuscular Hemoglobin 29.1 pg (26-32); Mean Corpuscular Hgb Concent. 32.3 g/dL (32-36); Mean Platelet Volume 9.3 fL (7.5-11.0); Monocyte (Absolute #) 0.59 x10^3/uL (0.0-1.3); Monocytes % 6.2 % (0.0-12.0); Neutrophil % 80.1 % (36.0-66.0); Platelet Count 277 x10^3/uL (150-450); Red Blood Count 5.23 x10^6/uL (4.1-5.4); Red Cell Distribution Width 13.2 % (11.5-14.0); White Blood Count 9.6 x10^3/uL (4.0-10.5)
--- NOTE | 2022-01-13 21:04 | ERPHSYRPT ---
- History of Present Illness Time Seen by Provider: 01/13/22 20:40 Source: patient Exam Limitations: no limitations Patient Subjective Stated Complaint: Ambulance states "She was found on the ground by son in the door way of the house." Triage Nursing Assessment: pt brought in by ambulance, pt alert to name, pt has hx of early onset dementia, pt was found in the doorway at her house by family member, unknown if LOC, pt is on coumadin, pt hypertensive in ER Physician History: Patient 76-year-old female presents to emergency department for evaluation of fall possible syncope. Patient walked to her home from a family member's home. Family member later found patient out on the ground in front of her home. Patient never made it into her house. Patient was confused. Family reports that patient has a history of early onset dementia. Patient currently on Coumadin. Patient is cooperative and alert however she is a poor historian. Patient denies pain. No obvious signs of trauma. No chest pain or shortness of breath. Patient has poor recollection of the events prior to her fall and after her fall. She voices no other complaints or concerns at this time. Portions of this note were created with voice recognition technology. There may be grammatical, spelling, punctuation or sound alike errors Timing/Duration: today Severity: moderate Modifying Factors: Improves With: nothing Associated Symptoms: denies symptoms, syncope, No nausea, No vomiting, No fever Allergies/Adverse Reactions: No Known Drug Allergies Allergy (Verified 01/13/22 20:26) Home Medications: Aspirin EC 81 mg [Ecotrin 81 mg] 81 mg PO DAILY 03/25/13 [History] Digoxin 0.125 mg Tablet [Lanoxin 0.125MG TABLET] 0.125 mg PO DAILY 03/25/13 [History] Furosemide 20 mg [Lasix 20 mg] 20 mg PO DAILY 03/25/13 [History] Potassium Chloride 20 Meq Tab [Potassium Chloride 20 MEQ TABLET] 20 meq PO BID 03/25/13 [History] Calcium Carbonate/Vitamin D3 [Calcium 500-Vit D3 125 Caplet] 1 each PO BID 03/21/15 [History] Ipratropium/Albuterol Sulfate [Combivent Inhaler] 1 canister IH TID PRN 03/21/15 [History] Losartan Potassium 50 mg [Cozaar 50 MG] 50 mg PO QHS 03/21/15 [History] Metoprolol Succinate 50 mg [Toprol Xl 50 MG] 50 mg PO BID 03/21/15 [History] Pravastatin Sodium 40 mg PO QHS 03/21/15 [History] Warfarin Sodium 5 mg [Jantoven] 2.5 mg PO 2XW 03/21/15 [History] Warfarin Sodium 5 mg [Jantoven] 5 mg PO DAILY 03/21/15 [History] Hx Tetanus, Diphtheria Vaccination/Date Given: No Hx Influenza Vaccination/Date Given: No Hx Pneumococcal Vaccination/Date Given: No Immunizations Up to Date: No Travel Risk - International Travel Have you traveled outside of the country in past 3 weeks: No - Coronavirus Screening Are you exhibiting any of the following symptoms?: No Close contact with a COVID-19 positive Pt in past 14-21 Days: No - Vaccine Status Have you recieved a Covid-19 vaccination: Yes Shrimper: Unknown - Vaccination Dates Dates if Unknown: unknown - Review of Systems Constitutional: No Symptoms, No Fever, No Chills Eyes: No Symptoms Ears, Nose, & Throat: No Symptoms Respiratory: No Symptoms, No Cough, No Dyspnea Cardiac: No Symptoms, No Chest Pain, No Edema, No Syncope Abdominal/Gastrointestinal: No Symptoms, No Abdominal Pain, No Nausea, No Vomiting, No Diarrhea Genitourinary Symptoms: No Symptoms, No Dysuria Musculoskeletal: No Symptoms, No Back Pain, No Neck Pain Skin: No Symptoms, No Rash Neurological: No Symptoms, No Dizziness, No Focal Weakness, No Sensory Changes Psychological: No Symptoms Endocrine: No Symptoms Hematologic/Lymphatic: No Symptoms Immunological/Allergic: No Symptoms All Other Systems: Reviewed and Negative - Past Medical History Pertinent Past Medical History: Yes Neurological History: Dementia ENT History: No Pertinent History Cardiac History: Congestive Heart Failure, Coronary Artery Disease, Hypertension Respiratory History: COPD Endocrine Medical History: No Pertinent History Musculoskeletal History: No Pertinent History GI Medical History: No Pertinent History History: Bladder Cancer Psycho-Social History: Anxiety Female Reproductive Disorders: No Pertinent History - Past Surgical History Past Surgical History: Yes (CABG) Neuro Surgical History: No Pertinent History Cardiac: CABG Respiratory: No Pertinent History Gastrointestinal: No Pertinent History Genitourinary: Other Musculoskeletal: No Pertinent History Female Surgical History: No Pertinent History Other Surgical History: tonsils as a child, open heart 2yrs ago - Social History Smoking Status: Current every day smoker How long have you smoked: 60 yrs Exposure to second hand smoke: Yes Drug Use: none Patient Lives Alone: No (lives behind son in a trailer) - Nursing Vital Signs Nursing Vital Signs: Initial Vital Signs Temperature 97.1 F 01/13/22 20:37 Pulse Rate 103 H 01/13/22 20:37 Respiratory Rate 20 01/13/22 20:37 Blood Pressure 162/111 01/13/22 20:37 O2 Sat by Pulse Oximetry 99 01/13/22 20:37 Pain Scale Pain Intensity 0 - Physical Exam General Appearance: no apparent distress, alert, other (Poor historian early onset dementia) Eye Exam: PERRL/EOMI, eyes nml inspection Ears, Nose, Throat Exam: normal ENT inspection, TMs normal, pharynx normal, moist mucous membranes Neck Exam: normal inspection, non-tender, supple, full range of motion Respiratory Exam: normal breath sounds, lungs clear, No respiratory distress Cardiovascular Exam: regular rate/rhythm, normal heart sounds, normal peripheral pulses Gastrointestinal/Abdomen Exam: soft, normal bowel sounds, No tenderness, No mass Back Exam: normal inspection, normal range of motion, No CVA tenderness, No v ertebral tenderness Extremity Exam: normal inspection, normal range of motion, pelvis stable Neurologic Exam: alert, oriented x 3, cooperative, normal mood/affect, sensation nml, No motor deficits Skin Exam: normal color, warm, dry, No rash Lymphatic Exam: No adenopathy SpO2 Interpretation: normal SpO2: 98 O2 Delivery: Room Air - Course Nursing assessment & vital signs reviewed: Yes EKG Interpreted by Me: RATE (108. Poor quality EKG due to artifact from tremors. Indeterminate EKG) - CT Exams Head CT Interpretation: Tele-radiologist Report (No comps. Nonacute senile brain with remote lacunar infarct left basal ganglia) Ordered Tests: Active Orders 24 hr Category Date Time Status Registered Health Nurse STAT Care 01/13/22 20:34 Completed EKG-ER Only STAT Care 01/13/22 20:33 Completed Lopez [Catheter-[place] Lopez] STAT Care 01/13/22 21:39 Completed IV Insertion STAT Care 01/13/22 20:33 Completed Pulse Oximetry (ED) STAT Care 01/13/22 20:33 Completed CHEST 1 VIEW (PORTABLE) Stat Exams 01/13/22 20:56 Taken HEAD WITHOUT CONTRAST [CT] Stat Exams 01/13/22 21:08 Taken CBC W DIFF Stat Lab 01/13/22 20:51 Completed CMP Stat Lab 01/13/22 20:51 Completed CULTURE,URINE Stat Lab 01/13/22 21:37 Received NT PRO BNP Stat Lab 01/13/22 20:51 Completed PROTIME WITH INR Stat Lab 01/13/22 20:51 Completed PTT Stat Lab 01/13/22 20:51 Completed TROPONIN Q3H Lab 01/13/22 20:51 Completed TROPONIN Q3H Lab 01/14/22 01:15 Ordered TROPONIN Q3H Lab 01/14/22 04:15 Ordered TROPONIN Q3H Lab 01/14/22 07:15 Ordered TROPONIN Q3H Lab 01/14/22 10:15 Ordered UA W/RFX CULTURE Stat Lab 01/13/22 21:37 Completed Medication Summary Generic Name Dose Route Start Last Admin Trade Name Freblanca PRN Reason Stop Dose Admin Acetaminophen 650 mg 01/13/22 22:59 Acetaminophen 325 Mg Tablet PO 02/12/22 22:58 Q4H PRN PRN PAIN AND/OR FEVER Al Hydrox/Mg Hydrox/Simethicone 30 ml 01/13/22 22:59 Mag Hydrox/Al Hydrox/Simeth 30 Ml Udcup PO 02/12/22 22:58 Q4H PRN PRN INDIGESTION Furosemide 20 mg 01/14/22 10:00 01/13/22 22:23 Furosemide 20 Mg/Vial IV 02/13/22 09:59 20 mg QAM GARRETT Administration Magnesium Hydroxide 30 - 60 ml 01/13/22 22:59 Magnesium Hydroxide 30 Ml Udcup PO 02/12/22 22:58 QDP PRN CONSTIPATION Ondansetron HCl 4 mg 01/13/22 22:59 Ondansetron Hcl 4 Mg/2 Ml Vial IV 02/12/22 22:58 Q4H PRN PRN NAUSEA/VOMITING Senna/Docusate Sodium 2 udtab 01/13/22 22:59 Senna/Docusate Sodium 1 Udtab Tablet PO 02/12/22 22:58 BID PRN PRN CONSTIPATION Discontinued Medications Generic Name Dose Route Start Last Admin Trade Name Freq PRN Reason Stop Dose Admin Ceftriaxone Sodium/Dextrose 1 g in 50 mls @ 100 mls/hr 01/13/22 22:51 01/13/22 22:54 Rocephin 1 Gm-D5w 50 Ml Bag IV 01/13/22 23:20 100 mls/hr STAT STA Administration Ceftriaxone Sodium/Dextrose Confirm 01/13/22 22:52 Rocephin 1 Gm-D5w 50 Ml Bag Administered 01/13/22 22:53 Dose 1 g in 50 mls @ ud IV .[facility] Lab/Rad Data: Laboratory Result Diagrams 01/13/22 20:51 01/13/22 20:51 Laboratory Results 01/13/22 01/13/22 01/13/22 Range/Units 21:37 20:51 20:51 WBC (4.0-10.5) x10^3/uL RBC (4.1-5.4) x10^6/uL Hgb (12.0-16.0) g/dL Hct (35-47) % MCV (78-100) fL MCH (26-32) pg MCHC (32-36) g/dL RDW (11.5-14.0) % Plt Count (150-450) x10^3/uL MPV (7.5-11.0) fL Gran % (36.0-66.0) % Immature Gran % (Auto) (0.00-0.4) % Nucleat RBC Rel Count (0.00-0.1) % Eos # (Auto) (0-0.5) x10^3/uL Immature Gran # (Auto) (0.00-0.03) x10^3u/L Absolute Lymphs (auto) (1.0-4.6) x10^3/uL Absolute Monos (auto) (0.0-1.3) x10^3/uL Absolute Nucleated RBC (0.00-0.01) x10^3u/L Lymphocytes % (24.0-44.0) % Monocytes % (0.0-12.0) % Eosinophils % (0.00-5.0) % Basophils % (0.0-0.4) % Absolute Granulocytes (1.4-6.9) x10^3/uL Basophils # (0-0.4) x10^3/uL PT (9.4-12.5) SECONDS INR (0.8-3.0) APTT (25.1-36.5) SECONDS Sodium (137-145) mmol/L Potassium (3.5-5.1) mmol/L Chloride (98-107) mmol/L Carbon Dioxide (22-30) mmol/L Anion Gap (5-15) MEQ/L BUN (7-17) mg/dL Creatinine (0.52-1.04) mg/dL Estimated GFR ML/MIN Glucose (74-106) mg/dL Calcium (8.4-10.2) mg/dL Total Bilirubin (0.2-1.3) mg/dL AST (14-36) U/L ALT (0-35) U/L Alkaline Phosphatase (38-126) U/L Troponin I 0.031 (0.000-0.034) ng/mL NT-Pro-B Natriuret Pep (0-1800) pg/mL Serum Total Protein (6.3-8.2) g/dL Albumin (3.5-5.0) g/dL Urinalys Dipstick Clnc MAIN LAB Urine Color YELLOW (YELLOW) Urine Appearance SLIGHTLY CLOUDY (CLEAR) Urine pH 7.0 (5-6) Ur Specific Lambert 1.020 (1.005-1.025) POC Urine Protein Conf NEGATIVE (Negative) Urine Ketones NEGATIVE (NEGATIVE) Urine Nitrite NEGATIVE (NEGATIVE) Urine Bilirubin NEGATIVE (NEGATIVE) Urine Urobilinogen 0.2 (0-1) mg/dL Urine Leukocytes LARGE (NEGATIVE) Urine WBC (Auto) >100 (0-5) /HPF Urine RBC (Auto) 16-25 (0-2) /HPF U Hyaline Cast (Auto) 3-5 (0-2) /LPF U Epithel Cells (Auto) RARE (FEW) /HPF Urine Bacteria (Auto) NONE (NEGATIVE) /HPF Urine RBC TRACE-INTACT (0-5) Mikie/ul Other Casts (Auto) 2-5 (NEGATIVE) /LPF Ur Culture Indicated? YES Urine Glucose NEGATIVE (NEGATIVE) mg/dL Digoxin 1.1 (0.8-1.9) ng/mL Influenza Type A Ag (NEGATIVE) Influenza Type B Ag (NEGATIVE) RSV (PCR) (Negative) SARS-CoV-2 (PCR) (NEGATIVE) 01/13/22 01/13/22 01/13/22 Range/Units 20:51 20:51 20:51 WBC (4.0-10.5) x10^3/uL RBC (4.1-5.4) x10^6/uL Hgb (12.0-16.0) g/dL Hct (35-47) % MCV (78-100) fL MCH (26-32) pg MCHC (32-36) g/dL RDW (11.5-14.0) % Plt Count (150-450) x10^3/uL MPV (7.5-11.0) fL Gran % (36.0-66.0) % Immature Gran % (Auto) (0.00-0.4) % Nucleat RBC Rel Count (0.00-0.1) % Eos # (Auto) (0-0.5) x10^3/uL Immature Gran # (Auto) (0.00-0.03) x10^3u/L Absolute Lymphs (auto) (1.0-4.6) x10^3/uL Absolute Monos (auto) (0.0-1.3) x10^3/uL Absolute Nucleated RBC (0.00-0.01) x10^3u/L Lymphocytes % (24.0-44.0) % Monocytes % (0.0-12.0) % Eosinophils % (0.00-5.0) % Basophils % (0.0-0.4) % Absolute Granulocytes (1.4-6.9) x10^3/uL Basophils # (0-0.4) x10^3/uL PT 12.3 (9.4-12.5) SECONDS INR 1.18 (0.8-3.0) APTT 27.9 (25.1-36.5) SECONDS Sodium 134 L (137-145) mmol/L Potassium 3.8 (3.5-5.1) mmol/L Chloride 100 (98-107) mmol/L Carbon Dioxide 23 (22-30) mmol/L Anion Gap 15.1 H (5-15) MEQ/L BUN 15 (7-17) mg/dL Creatinine 0.98 (0.52-1.04) mg/dL Estimated GFR 58.8 ML/MIN Glucose 111 H (74-106) mg/dL Calcium 9.4 (8.4-10.2) mg/dL Total Bilirubin 1.40 H (0.2-1.3) mg/dL AST 27 (14-36) U/L ALT 12 (0-35) U/L Alkaline Phosphatase 104 (38-126) U/L Troponin I (0.000-0.034) ng/mL NT-Pro-B Natriuret Pep 5570 H (0-1800) pg/mL Serum Total Protein 7.2 (6.3-8.2) g/dL Albumin 4.1 (3.5-5.0) g/dL Urinalys Dipstick Clnc Urine Color (YELLOW) Urine Appearance (CLEAR) Urine pH (5-6) Ur Specific Lambert (1.005-1.025) POC Urine Protein Conf (Negative) Urine Ketones (NEGATIVE) Urine Nitrite (NEGATIVE) Urine Bilirubin (NEGATIVE) Urine Urobilinogen (0-1) mg/dL Urine Leukocytes (NEGATIVE) Urine WBC (Auto) (0-5) /HPF Urine RBC (Auto) (0-2) /HPF U Hyaline Cast (Auto) (0-2) /LPF U Epithel Cells (Auto) (FEW) /HPF Urine Bacteria (Auto) (NEGATIVE) /HPF Urine RBC (0-5) Mikie/ul Other Casts (Auto) (NEGATIVE) /LPF Ur Culture Indicated? Urine Glucose (NEGATIVE) mg/dL Digoxin (0.8-1.9) ng/mL Influenza Type A Ag NEGATIVE (NEGATIVE) Influenza Type B Ag NEGATIVE (NEGATIVE) RSV (PCR) NEGATIVE (Negative) SARS-CoV-2 (PCR) NEGATIVE (NEGATIVE) 01/13/22 Range/Units 20:51 WBC 9.6 (4.0-10.5) x10^3/uL RBC 5.23 (4.1-5.4) x10^6/uL Hgb 15.2 (12.0-16.0) g/dL Hct 47.0 (35-47) % MCV 89.9 (78-100) fL MCH 29.1 (26-32) pg MCHC 32.3 (32-36) g/dL RDW 13.2 (11.5-14.0) % Plt Count 277 (150-450) x10^3/uL MPV 9.3 (7.5-11.0) fL Gran % 80.1 H (36.0-66.0) % Immature Gran % (Auto) 0.7 H (0.00-0.4) % Nucleat RBC Rel Count 0.0 (0.00-0.1) % Eos # (Auto) 0.06 (0-0.5) x10^3/uL Immature Gran # (Auto) 0.07 H (0.00-0.03) x10^3u/L Absolute Lymphs (auto) 1.15 (1.0-4.6) x10^3/uL Absolute Monos (auto) 0.59 (0.0-1.3) x10^3/uL Absolute Nucleated RBC 0.00 (0.00-0.01) x10^3u/L Lymphocytes % 12.0 L (24.0-44.0) % Monocytes % 6.2 (0.0-12.0) % Eosinophils % 0.6 (0.00-5.0) % Basophils % 0.4 (0.0-0.4) % Absolute Granulocytes 7.67 H (1.4-6.9) x10^3/uL Basophils # 0.04 (0-0.4) x10^3/uL PT (9.4-12.5) SECONDS INR (0.8-3.0) APTT (25.1-36.5) SECONDS Sodium (137-145) mmol/L Potassium (3.5-5.1) mmol/L Chloride (98-107) mmol/L Carbon Dioxide (22-30) mmol/L Anion Gap (5-15) MEQ/L BUN (7-17) mg/dL Creatinine (0.52-1.04) mg/dL Estimated GFR ML/MIN Glucose (74-106) mg/dL Calcium (8.4-10.2) mg/dL Total Bilirubin (0.2-1.3) mg/dL AST (14-36) U/L ALT (0-35) U/L Alkaline Phosphatase (38-126) U/L Troponin I (0.000-0.034) ng/mL NT-Pro-B Natriuret Pep (0-1800) pg/mL Serum Total Protein (6.3-8.2) g/dL Albumin (3.5-5.0) g/dL Urinalys Dipstick Clnc Urine Color (YELLOW) Urine Appearance (CLEAR) Urine pH (5-6) Ur Specific Lambert (1.005-1.025) POC Urine Protein Conf (Negative) Urine Ketones (NEGATIVE) Urine Nitrite (NEGATIVE) Urine Bilirubin (NEGATIVE) Urine Urobilinogen (0-1) mg/dL Urine Leukocytes (NEGATIVE) Urine WBC (Auto) (0-5) /HPF Urine RBC (Auto) (0-2) /HPF U Hyaline Cast (Auto) (0-2) /LPF U Epithel Cells (Auto) (FEW) /HPF Urine Bacteria (Auto) (NEGATIVE) /HPF Urine RBC (0-5) Mikie/ul Other Casts (Auto) (NEGATIVE) /LPF Ur Culture Indicated? Urine Glucose (NEGATIVE) mg/dL Digoxin (0.8-1.9) ng/mL Influenza Type A Ag (NEGATIVE) Influenza Type B Ag (NEGATIVE) RSV (PCR) (Negative) SARS-CoV-2 (PCR) (NEGATIVE) - Progress Progress: improved Progress Note: Patient reassessed. She is stable. No syncopal episodes in our ED. Work-up reveals a urinary tract infection. Patient received a dose of Rocephin. BNP elevated at 5500. Patient received a dose of Lasix. Patient is noted to have a history of congestive heart failure. Digoxin level 1.1. Plan of care discussed with patient. She agrees to admission at [facility] for further evaluation and treatment. Case discussed with Dr. Bishop who accepts admission to observation. 01/13/22 22:55 Discussed with : Gordon Will see patient in: hospital (observation) Counseled pt/family regarding: lab results, diagnosis, rad results - Departure Departure Disposition: Observation Clinical Impression: Elevated brain natriuretic peptide (BNP) level, Syncope and collapse, UTI (urinary tract infection) Condition: Stable Critical Care Time: No
[2022-01-13 21:08] LABS: INR 1.18 (0.8-3.0); PROTIME 12.3 SECONDS (9.4-12.5); PTT 27.9 SECONDS (25.1-36.5)
[2022-01-13 21:15] LABS: ALBUMIN 4.1 g/dL (3.5-5.0); ANION GAP 15.1 MEQ/L (5-15); BILIRUBIN,TOTAL 1.4 mg/dL (0.2-1.3); Calcium 9.4 mg/dL (8.4-10.2); Creatinine 1 0.98 mg/dL (0.52-1.04); EST GLOMERULAR FILTRATION RATE 58.8 ML/MIN; Potassium 3.8 mmol/L (3.5-5.1); Total Protein 7.2 g/dL (6.3-8.2)
[2022-01-13 21:30] LABS: INFLUENZA A NEGATIVE (NEGATIVE); INFLUENZA B NEGATIVE (NEGATIVE); RESPIRATORY SYNCTIAL VIRUS NEGATIVE (Negative); SARS-CoV-2 Xpert Express NEGATIVE (NEGATIVE)
[2022-01-13 21:53] LABS: Appearance SLIGHTLY CLOUDY (CLEAR); Bilirubin NEGATIVE (NEGATIVE); Epithelial Cells RARE /HPF (FEW); Glucose NEGATIVE (NEGATIVE); Ketones NEGATIVE (NEGATIVE); WBC >100 /HPF (0-5)
[2022-01-13 21:54] LABS: Dipstick done @ ? MAIN LAB; Nitrite NEGATIVE (NEGATIVE); Protein,Urine Dip NEGATIVE (Negative); RBC TRACE-INTACT Ery/ul (0-5); Urobilinogen 0.2 mg/dL (0-1)
[2022-01-13 21:55] LABS: Urine Cultured Indicated? YES
[2022-01-13] MEDS ORDERED: Lasix 20 MG/2 ML ONE (22:18)
[2022-01-13] MEDS ORDERED: ROCEPHIN 1 Gm-D5w 50 ml Bag** 1 G/50 ML IVPB IV STA (22:51)
[2022-01-13] MEDS ORDERED: ROCEPHIN 1 Gm-D5w 50 ml Bag** 1 G/50 ML IVPB IV ONE (22:52)
[2022-01-13] MEDS ORDERED: Senokot-S Tablet PO PRN (22:59)
[2022-01-13] MEDS ORDERED: MAALOX ES 30 ML UNIT DOSE PO PRN (22:59)
[2022-01-13] MEDS ORDERED: MILK OF MAGNESIA 30 ML PO PRN (22:59)
[2022-01-13] MEDS ORDERED: TYLENOL 325 MG PO PRN (22:59)
[2022-01-13] MEDS ORDERED: Zofran 4 MG/2 ML VIAL IV PRN (22:59)
[2022-01-14 03:50] LABS: Risk Ratio 4.2
--- NOTE | 2022-01-14 08:20 | XRAY ---
Indication: Cough. Frequent falls. Comparison: August 27, 2021 Portable chest again demonstrates COPD with scattered fibrosis/scarring. New mild right middle lobe subsegmental atelectasis. Remaining heart and lungs unremarkable again with CABG. Bony thorax intact again with osteopenia and degenerative changes.
--- NOTE | 2022-01-14 08:22 | XRAY ---
Indication: Fall. Dementia. Multiple contiguous axial images obtained through the head without contrast. Comparison: None Age-appropriate global atrophy and mild periventricular degenerative micro-ischemia bilaterally. Remote lacunar infarct left basal ganglia. No acute intracranial hemorrhage, abnormal extra-axial fluid collection, or mass effect. Fourth ventricle is midline without hydrocephalus. Bony calvarium intact. Visualized paranasal sinuses and mastoid or cells are clear. Impression: Nonacute senile brain with remote lacunar infarct left basal ganglia.
[2022-01-14] MEDS ORDERED: NON-FORMULARY ITEM (Ipratropium/Albuterol Sulfate [Combivent Inhaler] 14.7 GM Aer.W.Adap) IH SCH (09:45)
[2022-01-14] MEDS ORDERED: VITAMIN D3 PO SCH (10:00)
[2022-01-14] MEDS ORDERED: Toprol Xl 50 MG PO SCH (10:00)
[2022-01-14] MEDS ORDERED: ELIQUIS 2.5 MG TABLET PO SCH (10:00)
[2022-01-14] MEDS ORDERED: CALCIUM CARBONATE PO SCH (10:00)
[2022-01-14] MEDS ORDERED: NON-FORMULARY ITEM (Potassium Chloride 20 Meq Tab [Potassium Chloride 20 Meq Tablet] 20 ME PO SCH (10:00)
[2022-01-14] MEDS ORDERED: [UNRECOGNIZED DRUG - OTHER] PO SCH (10:00)
[2022-01-14] MEDS ORDERED: Lanoxin 0.125MG TABLET PO SCH (10:00)
[2022-01-14] MEDS ORDERED: Lasix 20 MG/2 ML IV SCH (10:00)
[2022-01-14] MEDS ORDERED: Klor Con PO SCH (10:00)
[2022-01-14] MEDS ORDERED: Calcium 500MG W/Vit D Tablet PO SCH (10:00)
[2022-01-14] MEDS ORDERED: LASIX 20 MG PO SCH (10:00)
[2022-01-14] MEDS ORDERED: DUONEB 0.5-3 MG/3 ml Neb IH PRN (10:01)
[2022-01-14 10:40] VITALS: O2SAT 95
[2022-01-14 13:04] VITALS: BP 179/93; PULSE 114
[2022-01-14] MEDS ORDERED: Cozaar 50 MG PO SCH (22:00)
[2022-01-14] MEDS ORDERED: ROCEPHIN 1 Gm-D5w 50 ml Bag** 1 G/50 ML IVPB IV SCH (22:00)
[2022-01-14] MEDS ORDERED: ZOCOR 20MG PO SCH (22:00)
[2022-01-14] MEDS ORDERED: NON-FORMULARY ITEM (Pravastatin Sodium [Pravastatin Sodium] 40 MG Tablet) PO SCH (22:00)
== END 2022-01-14 13:56 | disposition home or self-care (01) ==
LOC: ED 20:25 → MED SURG 22:24
PROVIDERS: ADMIT Family Medicine; ATTEND Family Medicine
DX: N39.0 Urinary tract infection, site not specified (principal); R55 Syncope and collapse; R79.89 Other specified abnormal findings of blood chemistry; I11.0 Hypertensive heart disease with heart failure; I50.9 Heart failure, unspecified; I25.10 Atherosclerotic heart disease of native coronary artery without angina pectoris; Z79.01 Long term (current) use of anticoagulants; Z79.899 Other long term (current) drug therapy; Z20.828 Contact with and (suspected) exposure to other viral communicable diseases; Z72.0 Tobacco use
CPT/HCPCS: 0241U; 36000; 36415; 51702; 70450; 71045; 80053; 80061; 80162; 81015; 83721; 83880; 84484; 85025; 85610; 85730; 87077; 87086; 87186; 93005; 93041; 93268; 94760; 96374; 99285; G0378; J0696; J1940; A9270-GY

== ENCOUNTER 2022-01-15 00:28 | Emergency (ER) | payer MEDICARE ==
[2022-01-15] MEDS ORDERED: Sodium Chloride 0.9% 1000 ML 1,000 ML IV SCH (00:45)
[2022-01-15] MEDS ORDERED: Sodium Chloride 0.9% 1000 ML 1,000 ML ONE (00:51)
[2022-01-15] MEDS ORDERED: Ativan 2 MG/1 ML VIAL IV ONE ×2 (01:01→05:20)
[2022-01-15] MEDS ORDERED: Ativan 2 MG/1 ML VIAL ONE (01:02)
--- NOTE | 2022-01-15 01:19 | ERPHSYRPT ---
- History of Present Illness Time Seen by Provider: 01/15/22 00:35 Source: patient, family Exam Limitations: clinical condition Patient Subjective Stated Complaint: emt states family called for ambulance due o increased confusion. pt was here yesterday with UTI. and has returned tonight with same symptom of confusion. Triage Nursing Assessment: pt combative and insisting that she leave, pt confused but answers some questions correctly. family states she has been confused today and was aphasic earlier today. Physician History: This is a 76-year-old white female patient of Dr. Ny and planisher Dr. Matthew who was discharged to home on the afternoon of 01/14/2022. She returned to the emergency room today because of increased confusion that occurred at 2230 on 01/14/2022. Patient has a history of hypertension, COPD and atrial fibrillation. Patient is no longer on Coumadin and is supposed to be taking Eliquis. However, family do not believe that she is taking the Eliquis as she is close to. Patient denies shortness of breath. Patient denies chest pain. She has no abdominal pain. Patient is adamant that she does not want to be here and wants to go home. Patient was discharged to home with a prescription for Bactrim DS and she took 1 dose of that while at home. Timing/Duration: yesterday Severity: moderate Character of Deficits: none Deficits: no difficulties Baseline/Normal Cognition: alert oriented x 3 Current Cognition: alert oriented x 3 Associated Symptoms: confusion Allergies/Adverse Reactions: No Known Drug Allergies Allergy (Verified 01/13/22 20:26) Home Medications: Digoxin 0.125 mg Tablet [Lanoxin 0.125MG TABLET] 0.125 mg PO DAILY 3 [History] Furosemide 20 mg [Lasix 20 mg] 20 mg PO DAILY 03/25/13 [History] Potassium Chloride 20 Meq Tab [Potassium Chloride 20 MEQ TABLET] 20 meq PO BID 03/25/13 [History] Calcium Carbonate/Vitamin D3 [Calcium 500-Vit D3 125 Caplet] 1 each PO BID 03/21/15 [History] Ipratropium/Albuterol Sulfate [Combivent Inhaler] 1 canister IH TID PRN 03/21/15 [History] Losartan Potassium 50 mg [Cozaar 50 MG] 50 mg PO QHS 03/21/15 [History] Metoprolol Succinate 50 mg [Toprol Xl 50 MG] 50 mg PO BID 03/21/15 [History] Pravastatin Sodium 40 mg PO QHS 03/21/15 [History] Apixaban [Eliquis 5 mg Tablet] 5 mg PO BID 01/14/22 [History] Hx Tetanus, Diphtheria Vaccination/Date Given: No Hx Influenza Vaccination/Date Given: No Hx Pneumococcal Vaccination/Date Given: No Travel Risk - International Travel Have you traveled outside of the country in past 3 weeks: No - Coronavirus Screening Are you exhibiting any of the following symptoms?: No Close contact with a COVID-19 positive Pt in past 14-21 Days: No - Vaccine Status Have you recieved a Covid-19 vaccination: Yes 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[facility] - Vaccination Dates Date of 2cond Vaccination (if applicable): unknown - Review of Systems Constitutional: No Symptoms Eyes: No Symptoms Ears, Nose, & Throat: No Symptoms Respiratory: No Symptoms Cardiac: No Symptoms Abdominal/Gastrointestinal: No Symptoms Genitourinary Symptoms: No Symptoms Musculoskeletal: No Symptoms Skin: No Symptoms Neurological: Other (Confusion) Psychological: No Symptoms Endocrine: No Symptoms Hematologic/Lymphatic: No Symptoms Immunological/Allergic: No Symptoms All Other Systems: Reviewed and Negative - Past Medical History Pertinent Past Medical History: Yes Neurological History: Dementia ENT History: No Pertinent History Cardiac History: Congestive Heart Failure, Coronary Artery Disease, Hypertension Respiratory History: COPD Endocrine Medical History: No Pertinent History Musculoskeletal History: No Pertinent History GI Medical History: No Pertinent History History: Bladder Cancer Psycho-Social History: Anxiety Female Reproductive Disorders: No Pertinent History - Past Surgical History Past Surgical History: Yes (CABG) Neuro Surgical History: No Pertinent History Cardiac: CABG Respiratory: No Pertinent History Gastrointestinal: No Pertinent History Genitourinary: Other Musculoskeletal: No Pertinent History Female Surgical History: No Pertinent History Other Surgical History: tonsils as a child, open heart 2yrs ago - Social History Smoking Status: Current every day smoker How long have you smoked: 60 yrs Exposure to second hand smoke: Yes Drug Use: none Patient Lives Alone: No (lives behind son in a trailer) - Nursing Vital Signs Nursing Vital Signs: Initial Vital Signs Temperature 97.8 F 01/15/22 00:30 Pulse Rate 108 H 01/15/22 00:30 Respiratory Rate 18 01/15/22 00:30 O2 Sat by Pulse Oximetry 96 01/15/22 00:30 Pain Scale Pain Intensity 0 - Jeff Coma Scale Best Eye Response (Jeff): (4) open spontaneously Best Verbal Response ([place]): (5) oriented Best Motor Response ([place]): (6) obeys commands [place] Total: 15 - Physical Exam General Appearance: no apparent distress, alert, anxiety, thin Eye Exam: bilateral eye: normal inspection, PERRL, EOMI Ears, Nose, Throat Exam: normal ENT inspection, moist mucous membranes Neck Exam: normal inspection, non-tender, supple, full range of motion Respiratory: normal breath sounds, lungs clear, airway intact, No chest tenderness, No respiratory distress Cardiovascular: tachycardia Gastrointestinal: soft, normal bowel sounds, No tenderness Pelvic Exam: not done Rectal Exam: not done Back Exam: normal inspection, normal range of motion, No CVA tenderness Extremity Exam: normal inspection, normal range of motion, pelvis stable Mental Status: alert, oriented x 3, agitated, 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 fib with RVR. No acute ischemia. Patient moving during twelve-lead EKG.) Ordered Tests: Active Orders 24 hr Category Date Time Status EKG-ER Only STAT Care 01/15/22 00:36 Active IV Insertion STAT Care 01/15/22 00:36 Active HEAD WITHOUT CONTRAST [CT] Stat Exams 01/15/22 00:38 Taken BLOOD CULTURE Stat Lab 01/15/22 02:10 Received CBC W DIFF Stat Lab 01/15/22 02:00 Completed CMP Stat Lab 01/15/22 02:00 Completed Lactic Acid Stat Lab 01/15/22 02:00 Completed Lactic Acid Stat Lab 01/15/22 04:14 Completed PROTIME WITH INR Stat Lab 01/15/22 02:00 Completed TROPONIN Q3H Lab 01/15/22 02:00 Completed TROPONIN Q3H Lab 01/15/22 04:30 Completed TROPONIN Q3H Lab 01/15/22 06:45 Ordered TROPONIN Q3H Lab 01/15/22 09:45 Ordered TROPONIN Q3H Lab 01/15/22 12:45 Ordered UA W/RFX CULTURE Stat Lab 01/15/22 Ordered Medication Summary Generic Name Dose Route Start Last Admin Trade Name Deangelo PRN Reason Stop Dose Admin Sodium Chloride 1,000 mls @ 100 mls/hr 01/15/22 00:45 01/15/22 00:52 Sodium Chloride 0.9% 1000 Ml IV 02/14/22 00:44 100 mls/hr .Q10H GARRETT Administration Discontinued Medications Generic Name Dose Route Start Last Admin Trade Name Freq PRN Reason Stop Dose Admin Digoxin 0.125 mg 01/15/22 05:19 01/15/22 05:44 Digoxin 0.5 Mg/2 Ml Injection IV 01/15/22 05:20 0.125 mg STAT ONE Administration Digoxin Confirm 01/15/22 05:42 Digoxin 0.5 Mg/2 Ml Injection Administered 01/15/22 05:43 Dose 0.5 mg .ROUTE .STK-MED ONE Ceftriaxone Sodium/Dextrose 1 g in 50 mls @ 100 mls/hr 01/15/22 01:27 01/15/22 01:30 Rocephin 1 Gm-D5w 50 Ml Bag IV 01/15/22 01:56 100 mls/hr STAT STA 100 mls/hr Administration Ceftriaxone Sodium/Dextrose Confirm 01/15/22 01:30 Rocephin 1 Gm-D5w 50 Ml Bag Administered 01/15/22 01:31 Dose 1 g in 50 mls @ ud IV .STK-MED ONE Lorazepam 0.5 mg 01/15/22 01:01 01/15/22 01:29 Lorazepam 2 Mg/1 Ml 2 Mg Vial IV 01/15/22 01:02 0.5 mg STAT ONE Administration Lorazepam Confirm 01/15/22 01:02 Lorazepam 2 Mg/1 Ml 2 Mg Vial Administered 01/15/22 01:03 Dose 2 mg .ROUTE .STK-MED ONE Lorazepam 0.5 mg 01/15/22 05:20 01/15/22 05:39 Lorazepam 2 Mg/1 Ml 2 Mg Vial IV 01/15/22 05:21 0.5 mg STAT ONE Administration Metoprolol Tartrate 5 mg 01/15/22 05:19 01/15/22 05:44 Metoprolol Tartrate 5 Mg/5 Ml Vial IV 01/15/22 05:20 5 mg STAT ONE Administration Metoprolol Tartrate Confirm 01/15/22 05:42 Metoprolol Tartrate 5 Mg/5 Ml Vial Administered 01/15/22 05:43 Dose 5 mg IV .STK-MED ONE Metoprolol Tartrate 5 mg 01/15/22 06:37 Metoprolol Tartrate 5 Mg/5 Ml Vial IV 01/15/22 06:38 STAT ONE Lab/Rad Data: Laboratory Result Diagrams 01/15/22 02:00 01/15/22 02:00 Laboratory Results 01/15/22 01/15/22 01/15/22 Range/Units 04:30 04:14 02:00 WBC (4.0-10.5) x10^3/uL RBC (4.1-5.4) x10^6/uL Hgb (12.0-16.0) g/dL Hct (35-47) % MCV (78-100) fL MCH (26-32) pg MCHC (32-36) g/dL RDW (11.5-14.0) % Plt Count (150-450) x10^3/uL MPV (7.5-11.0) fL Gran % (36.0-66.0) % Immature Gran % (Auto) (0.00-0.4) % Nucleat RBC Rel Count (0.00-0.1) % Eos # (Auto) (0-0.5) x10^3/uL Immature Gran # (Auto) (0.00-0.03) x10^3u/L Absolute Lymphs (auto) (1.0-4.6) x10^3/uL Absolute Monos (auto) (0.0-1.3) x10^3/uL Absolute Nucleated RBC (0.00-0.01) x10^3u/L Lymphocytes % (24.0-44.0) % Monocytes % (0.0-12.0) % Eosinophils % (0.00-5.0) % Basophils % (0.0-0.4) % Absolute Granulocytes (1.4-6.9) x10^3/uL Basophils # (0-0.4) x10^3/uL PT (9.4-12.5) SECONDS INR (0.8-3.0) Sodium (137-145) mmol/L Potassium (3.5-5.1) mmol/L Chloride (98-107) mmol/L Carbon Dioxide (22-30) mmol/L Anion Gap (5-15) MEQ/L BUN (7-17) mg/dL Creatinine (0.52-1.04) mg/dL Estimated GFR ML/MIN Glucose (74-106) mg/dL Lactic Acid 2.3 H (0.4-2.0) Calcium (8.4-10.2) mg/dL Total Bilirubin (0.2-1.3) mg/dL AST (14-36) U/L ALT (0-35) U/L Alkaline Phosphatase (38-126) U/L Troponin I 0.049 H* (0.000-0.034) ng/mL Serum Total Protein (6.3-8.2) g/dL Albumin (3.5-5.0) g/dL Digoxin 1.0 (0.8-1.9) ng/mL Influenza Type A Ag (NEGATIVE) Influenza Type B Ag (NEGATIVE) RSV (PCR) (Negative) SARS-CoV-2 (PCR) (NEGATIVE) 01/15/22 01/15/22 01/15/22 Range/Units 02:00 02:00 02:00 WBC (4.0-10.5) x10^3/uL RBC (4.1-5.4) x10^6/uL Hgb (12.0-16.0) g/dL Hct (35-47) % MCV (78-100) fL MCH (26-32) pg MCHC (32-36) g/dL RDW (11.5-14.0) % Plt Count (150-450) x10^3/uL MPV (7.5-11.0) fL Gran % (36.0-66.0) % Immature Gran % (Auto) (0.00-0.4) % Nucleat RBC Rel Count (0.00-0.1) % Eos # (Auto) (0-0.5) x10^3/uL Immature Gran # (Auto) (0.00-0.03) x10^3u/L Absolute Lymphs (auto) (1.0-4.6) x10^3/uL Absolute Monos (auto) (0.0-1.3) x10^3/uL Absolute Nucleated RBC (0.00-0.01) x10^3u/L Lymphocytes % (24.0-44.0) % Monocytes % (0.0-12.0) % Eosinophils % (0.00-5.0) % Basophils % (0.0-0.4) % Absolute Granulocytes (1.4-6.9) x10^3/uL Basophils # (0-0.4) x10^3/uL PT 12.9 H (9.4-12.5) SECONDS INR 1.24 (0.8-3.0) Sodium (137-145) mmol/L Potassium (3.5-5.1) mmol/L Chloride (98-107) mmol/L Carbon Dioxide (22-30) mmol/L Anion Gap (5-15) MEQ/L BUN (7-17) mg/dL Creatinine (0.52-1.04) mg/dL Estimated GFR ML/MIN Glucose (74-106) mg/dL Lactic Acid (0.4-2.0) Calcium (8.4-10.2) mg/dL Total Bilirubin (0.2-1.3) mg/dL AST (14-36) U/L ALT (0-35) U/L Alkaline Phosphatase (38-126) U/L Troponin I 0.044 H* (0.000-0.034) ng/mL Serum Total Protein (6.3-8.2) g/dL Albumin (3.5-5.0) g/dL Digoxin (0.8-1.9) ng/mL Influenza Type A Ag NEGATIVE (NEGATIVE) Influenza Type B Ag NEGATIVE (NEGATIVE) RSV (PCR) NEGATIVE (Negative) SARS-CoV-2 (PCR) NEGATIVE (NEGATIVE) 01/15/22 01/15/22 01/15/22 Range/Units 02:00 02:00 02:00 WBC 15.7 H (4.0-10.5) x10^3/uL RBC 5.06 (4.1-5.4) x10^6/uL Hgb 14.9 (12.0-16.0) g/dL Hct 46.5 (35-47) % MCV 91.9 (78-100) fL MCH 29.4 (26-32) pg MCHC 32.0 (32-36) g/dL RDW 13.1 (11.5-14.0) % Plt Count 291 (150-450) x10^3/uL MPV 9.4 (7.5-11.0) fL Gran % 80.6 H (36.0-66.0) % Immature Gran % (Auto) 0.9 H (0.00-0.4) % Nucleat RBC Rel Count 0.0 (0.00-0.1) % Eos # (Auto) 0.10 (0-0.5) x10^3/uL Immature Gran # (Auto) 0.14 H (0.00-0.03) x10^3u/L Absolute Lymphs (auto) 1.69 (1.0-4.6) x10^3/uL Absolute Monos (auto) 1.04 (0.0-1.3) x10^3/uL Absolute Nucleated RBC 0.00 (0.00-0.01) x10^3u/L Lymphocytes % 10.8 L (24.0-44.0) % Monocytes % 6.6 (0.0-12.0) % Eosinophils % 0.6 (0.00-5.0) % Basophils % 0.5 (0.0-0.4) % Absolute Granulocytes 12.63 H (1.4-6.9) x10^3/uL Basophils # 0.08 (0-0.4) x10^3/uL PT (9.4-12.5) SECONDS INR (0.8-3.0) Sodium 132 L (137-145) mmol/L Potassium 4.2 (3.5-5.1) mmol/L Chloride 97 L (98-107) mmol/L Carbon Dioxide 23 (22-30) mmol/L Anion Gap 16.4 H (5-15) MEQ/L BUN 19 H (7-17) mg/dL Creatinine 0.93 (0.52-1.04) mg/dL Estimated GFR > 60.0 ML/MIN Glucose 119 H (74-106) mg/dL Lactic Acid 4.2 H (0.4-2.0) Calcium 9.3 (8.4-10.2) mg/dL Total Bilirubin 0.60 (0.2-1.3) mg/dL AST 33 (14-36) U/L ALT 14 (0-35) U/L Alkaline Phosphatase 89 (38-126) U/L Troponin I (0.000-0.034) ng/mL Serum Total Protein 7.4 (6.3-8.2) g/dL Albumin 4.1 (3.5-5.0) g/dL Digoxin (0.8-1.9) ng/mL Influenza Type A Ag (NEGATIVE) Influenza Type B Ag (NEGATIVE) RSV (PCR) (Negative) SARS-CoV-2 (PCR) (NEGATIVE) - Progress Progress: improved, re-examined Progress Note: 01/15/22 01:18 Patient is refusing CAT scan of the head. 01/15/22 01:36 Patient has been asked several times since her admission into the emergency department to allow us to perform a CAT scan of her head. Patient continues to decline. 01/15/22 05:10 This patient still refusing to lay still to get an accurate twelve-lead EKG and is refusing a CAT scan of the head. Her troponin levels have slightly increased from July 17, 2021 to current levels. She has no complaints of chest pain. 01/15/22 05:55 Medical decision making: This patient has a urinary tract infection and presented to the emergency department with increased confusion. However, she is awake awake enough to be slightly combative in terms of not allowing us to complete a work-up. I did sedate her on 2 occasions now with Ativan half a milligram intravenously. The patient is waking up when we go to the CAT scanner and then patient is refusing the CAT scan of her head. We have attempted several times to obtain this study. In addition, the patient will not lay still in order to perform an adequate twelve-lead EKG. We have attempted several times. Patient does have slightly elevated troponin levels. However, she does not complain of any chest pain or shortness of breath. She will be sedated the second time and we will attempt, again, to perform a CAT scan of the head and obtain a twelve-lead EKG. We also need the urine. However, she is refusing Lopez catheter or straight catheterization to obtain the urine specimen. Patient's blood pressure is adequate. With IV hydration her lactic acid is improved from 4 down to 2.3. 01/15/22 06:30 CAT scan of the head without contrastshows diffuse atrophy chronic or remote ischemic changes without evidence of an acute infarction hemorrhage or mass- effect. Repeat twelve-lead EKG shows atrial fibrillation with a heart rate of 114. No acute ischemic changes on this EKG. I informed the family of the plan to transfer the patient to [facility] if beds are available. They agree with this plan. 01/15/22 06:46 Medical decision making: This patient is being transferred to [facility] in [facility]. I spoke with Dr. Jackson the emergency room physician. I reviewed the patient history, condition, work-up results and current vital sig ns with him. He accepts the patient in transfer. Counseled pt/family regarding: lab results, diagnosis - Departure Departure Disposition: Transfer Clinical Impression: Atrial fibrillation with RVR, Confusion, UTI (urinary tract infection), Elevated troponin, Leukocytosis Condition: Fair Critical Care Time: Yes Critical Care Time(excluding separately billable procedures): Critical 30-74 mins (45 minutes) Referrals: KIM NY MD [Primary Care Provider] - Follow up/PCP as directed
[2022-01-15] MEDS ORDERED: ROCEPHIN 1 Gm-D5w 50 ml Bag** 1 G/50 ML IVPB IV STA (01:27)
[2022-01-15] MEDS ORDERED: ROCEPHIN 1 Gm-D5w 50 ml Bag** 1 G/50 ML IVPB IV ONE (01:30)
[2022-01-15 01:53] VITALS: PULSE 102
[2022-01-15 02:28] LABS: Absolute Neutrophil Ct (ANC) 12.63 x10^3/uL (1.4-6.9); Basophil (Absolute #) 0.08 x10^3/uL (0-0.4); Eosinophil % 0.6 % (0.00-5.0); Hematocrit 46.5 % (35-47); Hemoglobin 14.9 g/dL (12.0-16.0); Lymphocyte (Absolute #) 1.69 x10^3/uL (1.0-4.6); Lymphocytes % 10.8 % (24.0-44.0); Mean Cell Volume 91.9 fL (78-100); Mean Corpuscular Hemoglobin 29.4 pg (26-32); Mean Platelet Volume 9.4 fL (7.5-11.0); Monocyte (Absolute #) 1.04 x10^3/uL (0.0-1.3); Monocytes % 6.6 % (0.0-12.0); Neutrophil % 80.6 % (36.0-66.0); Platelet Count 291 x10^3/uL (150-450); Red Blood Count 5.06 x10^6/uL (4.1-5.4); Red Cell Distribution Width 13.1 % (11.5-14.0); White Blood Count 15.7 x10^3/uL (4.0-10.5)
[2022-01-15 02:36] LABS: INR 1.24 (0.8-3.0); PROTIME 12.9 SECONDS (9.4-12.5)
[2022-01-15 02:46] LABS: ALBUMIN 4.1 g/dL (3.5-5.0); ALKALINE PHOSPHATASE 89 U/L (38-126); ANION GAP 16.4 MEQ/L (5-15); BLOOD UREA NITROGEN 19 mg/dL (7-17); CHLORIDE 97 mmol/L (98-107); Calcium 9.3 mg/dL (8.4-10.2); Carbon Dioxide 23 mmol/L (22-30); Creatinine 1 0.93 mg/dL (0.52-1.04); EST GLOMERULAR FILTRATION RATE > 60.0 ML/MIN; Glucose 119 mg/dL (74-106); Potassium 4.2 mmol/L (3.5-5.1); SGOT/AST 33 U/L (14-36); SGPT/ALT 14 U/L (0-35); SODIUM 132 mmol/L (137-145); Total Protein 7.4 g/dL (6.3-8.2)
[2022-01-15 03:03] LABS: INFLUENZA A NEGATIVE (NEGATIVE); INFLUENZA B NEGATIVE (NEGATIVE); RESPIRATORY SYNCTIAL VIRUS NEGATIVE (Negative); SARS-CoV-2 Xpert Express NEGATIVE (NEGATIVE)
[2022-01-15 05:12] VITALS: O2SAT 96
[2022-01-15] MEDS ORDERED: LOPRESSOR INJECTION IV ONE ×4 (05:19→06:46)
[2022-01-15] MEDS ORDERED: Lanoxin 0.5 MG/2 ML INJECTION IV ONE (05:19)
[2022-01-15] MEDS ORDERED: Lanoxin 0.5 MG/2 ML INJECTION ONE (05:42)
[2022-01-15 07:03] VITALS: BP 129/115
--- NOTE | 2022-01-15 07:35 | XRAY ---
Indication: Increasing confusion. Stroke. UTI. Multiple contiguous axial images obtained through the head without contrast. Comparison: None Stable age-appropriate global atrophy, periventricular degenerative micro-ischemia, and remote lacunar infarct left basal ganglia. No acute intracranial hemorrhage, abnormal extra-axial fluid collection, or mass effect. Fourth ventricle is midline without hydrocephalus. Bony calvarium intact. Paranasal sinuses and mastoid air cells are clear. Impression: Stable nonacute senile brain with remote lacunar infarct left basal ganglia. Comment: Preliminary interpretation made by [facility]. No critical discrepancy.
== END 2022-01-15 07:56 | disposition short-term general hospital (02) ==
LOC: ED 00:28
DX: I48.20 Chronic atrial fibrillation, unspecified (principal); R41.0 Disorientation, unspecified; N39.0 Urinary tract infection, site not specified; R77.8 Other specified abnormalities of plasma proteins; D72.829 Elevated white blood cell count, unspecified; I11.0 Hypertensive heart disease with heart failure; I50.9 Heart failure, unspecified; J44.9 Chronic obstructive pulmonary disease, unspecified; Z72.0 Tobacco use; Z79.01 Long term (current) use of anticoagulants; Z79.899 Other long term (current) drug therapy; Z20.828 Contact with and (suspected) exposure to other viral communicable diseases
CPT/HCPCS: 0241U; 36000; 36415; 70450; 80053; 80162; 83605; 84484; 85025; 85610; 87040; 93005; 96360; 96365; 96374; 96375; 96376; 99285; 99291; J0696; J1160; J2060

== ENCOUNTER 2022-04-27 08:29 | Emergency (ER) | payer MEDICARE ==
--- NOTE | 2022-04-27 08:33 | ERPHSYRPT ---
- History of Present Illness Time Seen by Provider: 04/27/22 08:33 Source: patient Exam Limitations: no limitations Physician History: This is a 76-year-old white female patient of Dr. Goldman who fell late last evening. Patient has a history of dementia. Patient also has a history of atrial fibrillation and is taking Eliquis. There is a hematoma present in the back of her head and family wants to be sure that she has a scan performed to rule in or rule out an intracranial bleed. Patient arrives to the emergency department neurologically intact except for her dementia. Occurred: yesterday Injuries/Pain Location: head Loss of Consciousness: no loss of consciousness Quality: aching Severity of Pain-Max: mild Severity of Pain-Current: mild Associated Symptoms (Fall): denies symptoms Allergies/Adverse Reactions: propofol Adverse Reaction (Severe, Verified 04/20/22 12:48) family states "really crazy and confused with her heart surgery" amiodarone Adverse Reaction (Unknown, Verified 04/20/22 12:33) pt and daughter states "not sure" cardiol. stated allergy Home Medications: Digoxin 0.125 mg Tablet [Lanoxin 0.125MG TABLET] 0.125 mg PO DAILY 03/25/13 [History] Furosemide 20 mg [Lasix 20 mg] 20 mg PO DAILY 03/25/13 [History] Potassium Chloride 20 Meq Tab [Potassium Chloride 20 MEQ TABLET] 20 meq PO BID 03/25/13 [History] Calcium Carbonate/Vitamin D3 [Calcium 500-Vit D3 125 Caplet] 1 each PO BID 03/21/15 [History] Ipratropium/Albuterol Sulfate [Combivent Inhaler] 1 canister IH TID PRN 03/21/15 [History] Losartan Potassium 50 mg [Cozaar 50 MG] 50 mg PO BID 03/21/15 [History] Metoprolol Succinate 50 mg [Toprol Xl 50 MG] 50 mg PO BID 03/21/15 [History] Pravastatin Sodium 40 mg PO QHS 03/21/15 [History] Apixaban [Eliquis 5 mg Tablet] 5 mg PO BID 01/14/22 [History] Aspirin 81 gm Chew [Baby Aspirin 81 mg Chew] 81 mg PO DAILY 01/19/22 [History] Hx Tetanus, Diphtheria Vaccination/Date Given: No Hx Influenza Vaccination/Date Given: No Hx Pneumococcal Vaccination/Date Given: No Travel Risk - International Travel Have you traveled outside of the country in past 3 weeks: No - Coronavirus Screening Are you exhibiting any of the following symptoms?: No Close contact with a COVID-19 positive Pt in past 14-21 Days: No - Vaccine Status Have you recieved a Covid-19 vaccination: Yes 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[email or web address] - Vaccination Dates Date of 2cond Vaccination (if applicable): unknown - Review of Systems Constitutional: No Symptoms Eyes: No Symptoms Ears, Nose, & Throat: No Symptoms Respiratory: No Symptoms Cardiac: No Symptoms Abdominal/Gastrointestinal: No Symptoms Genitourinary Symptoms: No Symptoms Musculoskeletal: No Symptoms Skin: Other (Subcutaneous hematoma occipital region.) Neurological: No Symptoms Psychological: No Symptoms Endocrine: No Symptoms Hematologic/Lymphatic: No Symptoms Immunological/Allergic: No Symptoms All Other Systems: Reviewed and Negative - Past Medical History Pertinent Past Medical History: Yes Neurological History: Dementia ENT History: No Pertinent History Cardiac History: Congestive Heart Failure, Coronary Artery Disease, Hypertension Respiratory History: COPD Endocrine Medical History: No Pertinent History Musculoskeletal History: No Pertinent History GI Medical History: No Pertinent History History: Bladder Cancer Psycho-Social History: Anxiety Female Reproductive Disorders: No Pertinent History - Past Surgical History Past Surgical History: Yes (CABG) Neuro Surgical History: No Pertinent History Cardiac: CABG Respiratory: No Pertinent History Gastrointestinal: No Pertinent History Genitourinary: Other Musculoskeletal: No Pertinent History Female Surgical History: No Pertinent History Other Surgical History: tonsils as a child, open heart 2yrs ago - Social History Smoking Status: Former smoker How long have you smoked: 60 yrs Exposure to second hand smoke: Yes Drug Use: none Patient Lives Alone: No (lives behind son in a trailer) - Nursing Vital Signs Nursing Vital Signs: Initial Vital Signs Temperature 98.3 F 04/27/22 08:35 Pulse Rate 75 04/27/22 08:35 Respiratory Rate 18 04/27/22 08:35 Blood Pressure 157/83 04/27/22 08:35 O2 Sat by Pulse Oximetry 96 04/27/22 08:35 Pain Scale Pain Intensity 0 - [place] Coma Score Best Eye Response (Jeff): (4) open spontaneously Best Verbal Response ([place]): (5) oriented Best Motor Response ([place]): (6) obeys commands Jeff Total: 15 - Physical Exam General Appearance: no apparent distress, alert, thin Head Injury: contusions, swelling (Occipital region) Eye Exam: PERRL/EOMI, eyes nml inspection ENT Exam: airway nml, nml ext.inspection Neck Exam: supple, trachea midline, full range of motion, normal alignment, normal inspection Respiratory/Chest Exam: No chest tenderness, No respiratory distress, No ecchymosis, No crepitus Gastrointestinal Exam: No tenderness Rectal Exam: not done Back Exam: normal inspection, normal range of motion, No CVA tenderness, No vertebral tenderness Extremity Exam: normal inspection, normal range of motion, pelvis stable, No deformities Neurologic Exam: alert, oriented x 3, cooperative, 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 stable nonacute senile brain with remote lacunar infarct left basal ga nglia Counseled pt/family regarding: diagnosis, need for follow-up, rad results - Departure Departure Disposition: Home Clinical Impression: Head injury, Hematoma of scalp Condition: Stable Critical Care Time: No Referrals: KIM GOLDMAN MD [Primary Care Provider] - Follow up/PCP as directed Additional Instructions: Ice pack to area 2-3 times a day for the next 48 hours. Use Tylenol for pain control. Follow-up with primary care physician as needed.
--- NOTE | 2022-04-27 09:23 | XRAY ---
Indication: Posterior head injury following fall. Blood thinner therapy. Multiple contiguous axial images obtained through the head without contrast. Comparison: January 15, 2022 Again age-appropriate global atrophy, mild periventricular degenerative micro-ischemia, and remote lacunar infarct left basal ganglia. No acute intracranial hemorrhage, abnormal extra-axial fluid collection, or mass effect. Fourth ventricle is midline without hydrocephalus. New small midline occipital scalp hematoma. Bony calvarium intact. Visualized paranasal sinuses and mastoid air cells are clear. Impression: New small occipital scalp hematoma without fracture. Otherwise stable nonacute senile brain with remote lacunar infarct left basal ganglia.
[2022-04-27 09:55] VITALS: BP 148/58; PULSE 71; O2SAT 98
== END 2022-04-27 10:00 | disposition home or self-care (01) ==
LOC: ED 08:29
DX: S00.03XA Contusion of scalp, initial encounter (principal); S09.90XA Unspecified injury of head, initial encounter; W19.XXXA Unspecified fall, initial encounter; I11.0 Hypertensive heart disease with heart failure; I50.9 Heart failure, unspecified; Z79.01 Long term (current) use of anticoagulants; Z79.899 Other long term (current) drug therapy
CPT/HCPCS: 70450; 99282

== ENCOUNTER 2023-06-22 07:30 | Inpatient (IN) | payer MEDICARE ==
[2023-06-22] MEDS ORDERED: DUONEB 0.5-3 MG/3 ml Neb IH ONE ×2 (08:01→08:30)
[2023-06-22 08:37] LABS: Absolute Neutrophil Ct (ANC) 17.82 x10^3/uL (1.4-6.9); BASOPHIL % 0.4 % (0.0-0.4); Basophil (Absolute #) 0.07 x10^3/uL (0-0.4); Eosinophil % 0.1 % (0.00-5.0); Eosinophil (Absolute #) 0.02 x10^3/uL (0-0.5); Hematocrit 41.5 % (35-47); Hemoglobin 12.9 g/dL (12.0-16.0); IMMATURE GRAN # 0.12 x10^3u/L (0.00-0.03); IMMATURE GRAN % 0.6 % (0.00-0.4); Lymphocyte (Absolute #) 0.76 x10^3/uL (1.0-4.6); Lymphocytes % 3.8 % (24.0-44.0); Mean Cell Volume 97.9 fL (78-100); Mean Corpuscular Hemoglobin 30.4 pg (26-32); Mean Corpuscular Hgb Concent. 31.1 g/dL (32-36); Mean Platelet Volume 9.5 fL (7.5-11.0); Monocyte (Absolute #) 1.02 x10^3/uL (0.0-1.3); Monocytes % 5.1 % (0.0-12.0); Platelet Count 355 x10^3/uL (150-450); Red Blood Count 4.24 x10^6/uL (4.1-5.4); Red Cell Distribution Width 13.8 % (11.5-14.0); White Blood Count 19.8 x10^3/uL (4.0-10.5)
--- NOTE | 2023-06-22 08:47 | XRAY ---
Indication: Short of breath and chest pain. Comparison: June 08, 2023 Portable chest limited with left costophrenic angle not included. Stable COPD with scattered fibrosis/scarring. New mild right upper lobe infiltrate/atelectasis and new 1.8 cm right midlung nodule. Left lower lobe interstitial opacities improved with minimal residual. Heart not enlarged again with CABG. Bony thorax intact
[2023-06-22 08:52] LABS: INR 1.21 (0.8-3.0)
[2023-06-22] MEDS ORDERED: Zithromax 500 MG/ 250 ML NaCl Premix 500 MG/250 ML IVPB IV STA (09:07)
[2023-06-22] MEDS ORDERED: ROCEPHIN 1 Gm-D5w 50 ml Bag** 1 G/50 ML IVPB IV STA (09:07)
[2023-06-22] MEDS ORDERED: ROCEPHIN 1 Gm-D5w 50 ml Bag** 1 G/50 ML IVPB IV ONE (09:14)
[2023-06-22 09:16] LABS: INFLUENZA A NEGATIVE (NEGATIVE); INFLUENZA B NEGATIVE (NEGATIVE); RESPIRATORY SYNCTIAL VIRUS NEGATIVE (NEGATIVE); SARS-CoV-2 Xpert Express NEGATIVE (NEGATIVE)
--- NOTE | 2023-06-22 09:20 | ERPHSYRPT ---
- History of Present Illness Time Seen by Provider: 06/22/23 08:01 Source: patient, family Exam Limitations: no limitations Patient Subjective Stated Complaint: SOB Triage Nursing Assessment: Patient brought into ED per w/c and transferred self to bed with assist of 1. Patient's skin pink, warm and dry. Patient complains of increased SOB over the past day. Patient has dx of COPD and wears home O2 at 2 liters per N/C. Lungs noted to have rhonchi and wheezing throughout. Patient denies pain or discomfort. Physician History: 78-year-old female with multiple medical problems including coronary artery disease with CABG, atrial fibrillation on Eliquis, congestive heart failure, COPD with chronic respiratory failure on 2 L oxygen, recently treated for pneumonia outpatient presented in the ER with increasing shortness of breath. Patient reports normally she does not have to use oxygen during the daytime but lately she is been using oxygen / but still getting short of breath even at resting and gets very worse with minimal activity. Denies any lower extremity swelling. Coughing up yellow-green sputum. She has been using neb treatments with no significant relief. No fever or chills reported. Patient oxygen saturation is 96% on 4 L on presentation. It is weaned down to 2 L and currently around 93% resting. No known sick contact. Allergies/Adverse Reactions: propofol Adverse Reaction (Severe, Verified 06/22/23 07:31) family states "really crazy and confused with her heart surgery" amiodarone Adverse Reaction (Unknown, Verified 06/22/23 07:31) pt and daughter states "not sure" cardiol. stated allergy Home Medications: Digoxin 0.125 mg Tablet [Lanoxin 0.125MG TABLET] 0.125 mg PO DAILY 03/25/13 [History] Furosemide 20 mg [Lasix 20 mg] 20 mg PO DAILY 03/25/13 [History] Potassium Chloride 20 Meq Tab [Potassium Chloride 20 MEQ TABLET] 20 meq PO BID 03/25/13 [History] Calcium Carbonate/Vitamin D3 [Calcium 500-Vit D3 125 Caplet] 1 each PO BID 03/21/15 [History] Ipratropium/Albuterol Sulfate [Combivent Inhaler] 1 canister IH TID PRN 03/21/15 [History] Losartan Potassium 50 mg [Cozaar 50 MG] 50 mg PO BID 03/21/15 [History] Metoprolol Succinate 50 mg [Toprol Xl 50 MG] 50 mg PO BID 03/21/15 [History] Pravastatin Sodium 40 mg PO QHS 03/21/15 [History] Apixaban [Eliquis 5 mg Tablet] 5 mg PO BID 01/14/22 [History] Aspirin 81 gm Chew [Baby Aspirin 81 mg Chew] 81 mg PO DAILY 01/19/22 [History] Donepezil HCl [Aricept] 5 mg PO HS 06/22/23 [History] Escitalopram Oxalate [Lexapro] 10 mg PO HS 06/22/23 [History] Hydroxyzine HCl 25 mg [Atarax 25 mg] 12.5 mg PO TIDPRN 06/22/23 [History] Ipratropium/Albuterol Sulfate [Iprat-Albut 0.5-3(2.5) mg/3 ml] 1 neb IN QID 06/22/23 [History] Hx Tetanus, Diphtheria Vaccination/Date Given: No Hx Influenza Vaccination/Date Given: No Hx Pneumococcal Vaccination/Date Given: No Immunizations Up to Date: Yes Travel Risk - International Travel Have you traveled outside of the country in past 3 weeks: No - Coronavirus Screening Are you exhibiting any of the following symptoms?: No Close contact with a COVID-19 positive Pt in past 14-21 Days: No - Vaccine Status Have you recieved a Covid-19 vaccination: Yes [employer]: [employer] - Vaccination Dates Date of 2cond Vaccination (if applicable): unknown - Review of Systems Constitutional: Fatigue, Weakness Eyes: No Symptoms Ears, Nose, & Throat: No Symptoms Respiratory: Cough, Dyspnea, Wheezing Cardiac: No Symptoms Abdominal/Gastrointestinal: No Symptoms Genitourinary Symptoms: No Symptoms Musculoskeletal: Arthralgias Skin: No Symptoms Neurological: No Symptoms Hematologic/Lymphatic: No Symptoms Immunological/Allergic: No Symptoms - Past Medical History Pertinent Past Medical History: Yes Neurological History: Dementia ENT History: No Pertinent History Cardiac History: Congestive Heart Failure, Coronary Artery Disease, Hypertension Respiratory History: COPD Endocrine Medical History: No Pertinent History Musculoskeletal History: No Pertinent History GI Medical History: No Pertinent History History: Bladder Cancer Psycho-Social History: Anxiety Female Reproductive Disorders: No Pertinent History - Past Surgical History Past Surgical History: Yes (CABG) Neuro Surgical History: No Pertinent History Cardiac: CABG Respiratory: No Pertinent History Gastrointestinal: No Pertinent History Genitourinary: Other Musculoskeletal: No Pertinent History Female Surgical History: No Pertinent History Other Surgical History: tonsils as a child, open heart 2yrs ago - Social History Smoking Status: Current every day smoker How long have you smoked: 60 yrs Exposure to second hand smoke: Yes Drug Use: none Patient Lives Alone: No (lives behind son in a trailer) - Nursing Vital Signs Nursing Vital Signs: Initial Vital Signs Temperature 98.2 F 06/22/23 07:33 Pulse Rate 86 06/22/23 07:33 Respiratory Rate 35 H 06/22/23 07:33 Blood Pressure 166/107 06/22/23 07:33 O2 Sat by Pulse Oximetry 96 06/22/23 07:33 Pain Scale Pain Intensity 0 - Physical Exam General Appearance: no apparent distress, alert, anxiety Eye Exam: PERRL/EOMI Ears, Nose, Throat Exam: hearing grossly normal, normal ENT inspection, normal pharynx Neck Exam: normal inspection, non-tender, supple, full range of motion Respiratory Exam: diminished breath sounds, crackles/rales, wheezing Cardiovascular/Chest Exam: normal heart sounds, irregular Abdominal/Gastrointestinal Exam: soft, normal bowel sounds, No tenderness Extremity Exam: non-tender, normal range of motion Neurologic Exam: alert, oriented x 3, cooperative, orchestrator II-XII nml as tested, No normal mood/affect Skin Exam: normal color SpO2 Interpretation: O2 applied SpO2: 97 O2 Delivery: Nasal Cannula - Course EKG Interpreted by Me: RATE (100), A-fib, NORMAL AXIS, Non-specific ST Changes Ordered Tests: Active Orders 24 hr Category Date Time Status Raise Miner STAT Care 06/22/23 08:02 Active EKG-ER Only STAT Care 06/22/23 08:01 Active IV Insertion STAT Care 06/22/23 08:01 Active Oxygen-ED Only Nasal Cannula 2 lpm Care 06/22/23 08:01 Active Consult Ortho ROUTINE Cons 06/22/23 09:56 Completed CHEST 1 VIEW (PORTABLE) Stat Exams 06/22/23 08:02 Completed BLOOD CULTURE Stat Lab 06/22/23 08:31 Received CBC W DIFF Stat Lab 06/22/23 07:45 Completed CMP Stat Lab 06/22/23 07:45 Completed Lactic Acid Stat Lab 06/22/23 08:01 Completed MAGNESIUM Stat Lab 06/22/23 07:45 Completed NT PRO BNPII Stat Lab 06/22/23 07:45 Completed PROCALCITONIN Stat Lab 06/22/23 07:45 Completed PROTIME WITH INR Stat Lab 06/22/23 07:45 Completed TROPONIN Q4H Lab 06/22/23 07:45 Completed TROPONIN Q4H Lab 06/22/23 12:15 Ordered TROPONIN Q4H Lab 06/22/23 16:15 Ordered Respiratory Therapy Assessment DAILY RT 06/22/23 08:36 Active Medication Summary Discontinued Medications Generic Name Dose Route Start Last Admin Trade Name Freq PRN Reason Stop Dose Admin Albuterol/Ipratropium 3 ml 06/22/23 08:01 06/22/23 08:33 Ipratropium/Albuterol Sulfate 3 Ml Ampul.Neb IH 06/22/23 08:02 3 ml STAT ONE Administration Albuterol/Ipratropium Confirm 06/22/23 08:30 Ipratropium/Albuterol Sulfate 3 Ml Ampul.Neb Administered 06/22/23 08:31 Dose 3 ml IH .STK-MED ONE Azithromycin 500 mg in 250 mls @ 250 mls/hr 06/22/23 09:07 06/22/23 09:50 Zithromax 500 Mg/ 250 Ml Nacl Premix IV 06/22/23 10:06 250 mls/hr STAT STA 250 mls/hr Administration Ceftriaxone Sodium/Dextrose 1 g in 50 mls @ 100 mls/hr 06/22/23 09:07 06/22/23 09:53 Rocephin 1 Gm-D5w 50 Ml Bag IV 06/22/23 09:36 Infused STAT STA Infusion Ceftriaxone Sodium/Dextrose Confirm 06/22/23 09:14 Rocephin 1 Gm-D5w 50 Ml Bag Administered 06/22/23 09:15 Dose 1 g in 50 mls @ ud IV .STK-MED ONE Azithromycin Confirm 06/22/23 09:45 Zithromax 500 Mg/ 250 Ml Nacl Premix Administered 06/22/23 09:46 Dose 500 mg in 250 mls @ ud IV .STK-MED ONE Lab/Rad Data: Laboratory Result Diagrams 06/22/23 07:45 06/22/23 07:45 Laboratory Results 06/22/23 06/22/23 06/22/23 Range/Units Unknown 08: 07:45 WBC (4.0-10.5) x10^3/uL RBC (4.1-5.4) x10^6/uL Hgb (12.0-16.0) g/dL Hct (35-47) % MCV (78-100) fL MCH (26-32) pg MCHC (32-36) g/dL RDW (11.5-14.0) % Plt Count (150-450) x10^3/uL MPV (7.5-11.0) fL Gran % (36.0-66.0) % Immature Gran % (Auto) (0.00-0.4) % Nucleat RBC Rel Count (0.00-0.1) % Eos # (Auto) (0-0.5) x10^3/uL Immature Gran # (Auto) (0.00-0.03) x10^3u/L Absolute Lymphs (auto) (1.0-4.6) x10^3/uL Absolute Monos (auto) (0.0-1.3) x10^3/uL Absolute Nucleated RBC (0.00-0.01) x10^3u/L Lymphocytes % (24.0-44.0) % Monocytes % (0.0-12.0) % Eosinophils % (0.00-5.0) % Basophils % (0.0-0.4) % Absolute Granulocytes (1.4-6.9) x10^3/uL Basophils # (0-0.4) x10^3/uL PT (9.4-12.5) SECONDS INR (0.8-3.0) Sodium 140 (137-145) mmol/L Potassium 4.8 (3.5-5.1) mmol/L Chloride 100 (98-107) mmol/L Carbon Dioxide 30 (22-30) mmol/L Anion Gap 14.2 (5-15) MEQ/L BUN 29 H (7-17) mg/dL Creatinine 0.95 (0.52-1.04) mg/dL Estimated GFR 61.7 ML/MIN Glucose 110 H (74-106) mg/dL Lactic Acid 2.9 H (0.4-2.0) Calcium 11.0 H (8.4-10.2) mg/dL Magnesium 1.9 (1.6-2.3) mg/dL Total Bilirubin 1.40 H (0.2-1.3) mg/dL AST 42 H (14-36) U/L ALT 30 (0-35) U/L Alkaline Phosphatase 103 (38-126) U/L Troponin I 0.015 (0.000-0.034) ng/mL NT-Pro-B Natriuret Pep 46608 (<300) pg/mL Serum Total Protein 7.9 (6.3-8.2) g/dL Albumin 4.5 (3.5-5.0) g/dL Procalcitonin 0.081 H (0.030-0.080) ng/mL Influenza Type A Ag NEGATIVE (NEGATIVE) Influenza Type B Ag NEGATIVE (NEGATIVE) RSV (PCR) NEGATIVE (NEGATIVE) SARS-CoV-2 (PCR) NEGATIVE (NEGATIVE) 06/22/23 06/22/23 Range/Units 07:45 07:45 WBC 19.8 H (4.0-10.5) x10^3/uL RBC 4.24 (4.1-5.4) x10^6/uL Hgb 12.9 (12.0-16.0) g/dL Hct 41.5 (35-47) % MCV 97.9 (78-100) fL MCH 30.4 (26-32) pg MCHC 31.1 L (32-36) g/dL RDW 13.8 (11.5-14.0) % Plt Count 355 (150-450) x10^3/uL MPV 9.5 (7.5-11.0) fL Gran % 90.0 H (36.0-66.0) % Immature Gran % (Auto) 0.6 H (0.00-0.4) % Nucleat RBC Rel Count 0.0 (0.00-0.1) % Eos # (Auto) 0.02 (0-0.5) x10^3/uL Immature Gran # (Auto) 0.12 H (0.00-0.03) x10^3u/L Absolute Lymphs (auto) 0.76 L (1.0-4.6) x10^3/uL Absolute Monos (auto) 1.02 (0.0-1.3) x10^3/uL Absolute Nucleated RBC 0.00 (0.00-0.01) x10^3u/L Lymphocytes % 3.8 L (24.0-44.0) % Monocytes % 5.1 (0.0-12.0) % Eosinophils % 0.1 (0.00-5.0) % Basophils % 0.4 (0.0-0.4) % Absolute Granulocytes 17.82 H (1.4-6.9) x10^3/uL Basophils # 0.07 (0-0.4) x10^3/uL PT 13.0 H (9.4-12.5) SECONDS INR 1.21 (0.8-3.0) Sodium (137-145) mmol/L Potassium (3.5-5.1) mmol/L Chloride (98-107) mmol/L Carbon Dioxide (22-30) mmol/L Anion Gap (5-15) MEQ/L BUN (7-17) mg/dL Creatinine (0.52-1.04) mg/dL Estimated GFR ML/MIN Glucose (74-106) mg/dL Lactic Acid (0.4-2.0) Calcium (8.4-10.2) mg/dL Magnesium (1.6-2.3) mg/dL Total Bilirubin (0.2-1.3) mg/dL AST (14-36) U/L ALT (0-35) U/L Alkaline Phosphatase (38-126) U/L Troponin I (0.000-0.034) ng/mL NT-Pro-B Natriuret Pep (<300) pg/mL Serum Total Protein (6.3-8.2) g/dL Albumin (3.5-5.0) g/dL Procalcitonin (0.030-0.080) ng/mL Influenza Type A Ag (NEGATIVE) Influenza Type B Ag (NEGATIVE) RSV (PCR) (NEGATIVE) SARS-CoV-2 (PCR) (NEGATIVE) - Progress Progress: improved, re-examined Air Movement: good Progress Note: 06/22/23 10:24 78-year-old with multiple medical problems including coronary artery disease with CABG, chronic respiratory failure on 2 L oxygen, atrial fibrillation on Eliquis, recent treatment for pneumonia is evaluated for worsening shortness of breath and need for using oxygen 24/7 2 L but still getting short of breath with minimal activity and even at resting. Patient is mildly tachypneic and mildly tachycardic on presentation. Initially she was on 4 L and decrease it down to 2 L with sats around 93%. Chest x-ray showed right-sided infiltrative process. Opacity on the left side are improving. She is given DuoNeb, EKG showed A-fib rate controlled with no ST elevation and negative initial troponin. White count of 19 with a lactate of 2.9 and elevated procalcitonin 0.081. Started on Rocephin and Zithromax. I believe patient needs IV antibiotics with neb treatments. It is a combination of COPD exacerbation and pneumonia. I have discussed with Dr. Arredondo, reviewed history, workup and agreed with admission. I have shared the results of workup with patient and family who understand and agree with it. Patient is on Eliquis, do not think needs CTA chest. Blood Culture(s) Obtained: Yes Antibiotics given: Yes Discussed with : Kai Will see patient in: hospital (full admit) Counseled pt/family regarding: lab results, diagnosis, rad results Medical Desision Making - Independent Historian Additional History obtained from: Child, Family - Discussion of managment Care discussed with:: hospitalist (10:20 AM) Reviewed:: Test results Agreed on:: Treatment plan Will see patient: in hospital - Diagnostic Testing Diagnostic test were ordered, analyzed, and reviewed by me: Yes Radiological Interpretation: Reviewed by me - Risk of complications The pt has a high risk of morbidity or mortality based on: Decision regarding hospitilization or escalation of hosp level of care - Departure Departure Disposition: In-patient Admission Clinical Impression: Pneumonia, COPD (chronic obstructive pulmonary disease) Condition: Stable Critical Care Time: No Referrals: KIM GOLDMAN MD [Primary Care Provider] - Follow up/PCP as directed Instructions: Chronic Obstructive Pulmonary Disease
[2023-06-22 09:44] LABS: ALBUMIN 4.5 g/dL (3.5-5.0); ANION GAP 14.2 MEQ/L (5-15); BILIRUBIN,TOTAL 1.4 mg/dL (0.2-1.3); Creatinine 1 0.95 mg/dL (0.52-1.04); EST GLOMERULAR FILTRATION RATE 61.7 ML/MIN; MAGNESIUM 1.9 mg/dL (1.6-2.3); PROCALCITONIN 0.081 ng/mL (0.030-0.080); Potassium 4.8 mmol/L (3.5-5.1); TROPONIN 0.015 ng/mL (0.000-0.034); Total Protein 7.9 g/dL (6.3-8.2)
[2023-06-22] MEDS ORDERED: Zithromax 500 MG/ 250 ML NaCl Premix 500 MG/250 ML IVPB IV ONE (09:45)
[2023-06-22] MEDS ORDERED: Sodium Chloride 0.9% 500 ML 500 ML IV ONE (11:09)
--- NOTE | 2023-06-22 11:18 | PCM.HP ---
History of Present Illness - Chief Complaint Chief Complaint: sepsis/ pneumonia Date: 06/22/23 History of Present Illness: is a 78 year old female with PMHX of dementia, CHF, CAD, CABG, a-fib (on eliquis), HTN, anxiety, bladder CA, daily smoker, and COPD. She has chronic respiratory failure and on 2 L oxygen at bedtime. She was recently treated for pneumonia outpatient presented in the ER with increasing shortness of breath. Patient reports normally she does not have to use oxygen during the daytime but lately she is been using oxygen / but still getting short of breath even at resting and gets very worse with minimal activity. Denies any lower extremity swelling. Coughing up yellow-green sputum. She has been using neb treatments with no significant relief. No fever or chills reported. She is currently on 2 LNC at 93%. WBC 19.8, lactic acid 2.9- she did trigger for sepsis. 500ml fluid bolus gave d/t her heart hx. She was given antibiotics and breathing tx in the ER. - Review of Systems Constitutional: Weakness, No Fever, No Chills Eyes: No Symptoms Ears, Nose, & Throat: No Symptoms Respiratory: Orthopnea, Short Of Breath, No Cough Cardiac: No Chest Pain, No Edema, No Syncope Abdominal/Gastrointestinal: No Abdominal Pain, No Nausea, No Vomiting, No Diarrhea Genitourinary Symptoms: No Dysuria Musculoskeletal: No Back Pain, No Neck Pain Skin: No Rash Neurological: No Dizziness, No Focal Weakness, No Sensory Changes Psychological: No Symptoms Endocrine: No Symptoms Hematologic/Lymphatic: No Symptoms Immunological/Allergic: No Symptoms Medications & Allergies Home Medications: Home Medication List Digoxin 0.125 mg Tablet [Lanoxin 0.125MG TABLET] 0.125 mg PO DAILY 03/25/13 [History Confirmed 06/22/23] Furosemide 20 mg [Lasix 20 mg] 20 mg PO DAILY 03/25/13 [History Confirmed 06/22/23] Potassium Chloride 20 Meq Tab [Potassium Chloride 20 MEQ TABLET] 20 meq PO BID 03/25/13 [History Confirmed 06/22/23] Calcium Carbonate/Vitamin D3 [Calcium 500-Vit D3 125 Caplet] 1 each PO BID 03/21/15 [History Confirmed 06/22/23] Ipratropium/Albuterol Sulfate [Combivent Inhaler] 1 canister IH TID PRN 03/21/15 [History Confirmed 06/22/23] Losartan Potassium 50 mg [Cozaar 50 MG] 50 mg PO BID 03/21/15 [History Confirmed 06/22/23] Pravastatin Sodium 40 mg PO QHS 03/21/15 [History Confirmed 06/22/23] Apixaban [Eliquis 5 mg Tablet] 5 mg PO BID 01/14/22 [History Confirmed 06/22/23] Aspirin 81 gm Chew [Baby Aspirin 81 mg Chew] 81 mg PO DAILY 01/19/22 [History Confirmed 06/22/23] Donepezil HCl [Aricept] 5 mg PO HS 06/22/23 [History Confirmed 06/22/23] Escitalopram Oxalate [Lexapro] 10 mg PO HS 06/22/23 [History Confirmed 06/22/23] Hydroxyzine HCl 25 mg [Atarax 25 mg] 12.5 mg PO TIDPRN 06/22/23 [History Confirmed 06/22/23] Ipratropium/Albuterol Sulfate [Iprat-Albut 0.5-3(2.5) mg/3 ml] 1 neb IN QID 06/22/23 [History Confirmed 06/22/23] Metoprolol Tartrate 50 mg [Lopressor 50 MG] 50 mg PO BID 06/22/23 [History Confirmed 06/22/23] Allergies/Adverse Reactions: Allergies Allergy/AdvReac Type Severity Reaction Status Date / Time propofol AdvReac Severe Verified 06/22/23 07:31 amiodarone AdvReac Unknown Verified 06/22/23 07:31 - Past Medical History Past Medical History: Yes Neurological History: Dementia ENT History: No Pertinent History Cardiac History: Congestive Heart Failure, Coronary Artery Disease, Hypertension Respiratory History: COPD Endocrine Medical History: No Pertinent History Musculoskelatal History: No Pertinent History GI Medical History: No Pertinent History History: Bladder Cancer Pyscho-Social History: Anxiety Reproductive Disorders: No Pertinent History - Past Surgical History Past Surgical History: Yes (CABG) Neuro Surgical History: No Pertinent History Cardiac History: CABG Respiratory Surgery: No Pertinent History GI Surgical History: No Pertinent History Genitourinary Surgical Hx: Other Musculskeletal Surgical Hx: No Pertinent History Female Surgical History: No Pertinent History Other Surgical History: tonsils as a child, open heart 2yrs ago - Social History Smoking Status: Current every day smoker How long have you smoked: 60 yrs Exposure to second hand smoke: Yes Alcohol: Rarely Drug Use: none - Physical Exam Vital Signs: Vital Signs - 24 hr Temp Pulse Resp BP BP Pulse Ox 06/22/23 10:29 97 06/22/23 10:09 97 H 22 125/68 93 L 06/22/23 09:30 88 22 124/71 93 L 06/22/23 09:00 99 H 25 H 124/68 94 L 06/22/23 08:43 98 H 26 H 139/66 97 06/22/23 08:36 102 H 28 H 94 L 06/22/23 08:35 95 H 22 139/66 97 06/22/23 08:00 116 H 20 152/106 93 L 06/22/23 07:33 98.2 F 86 30 H 166/107 96 General Appearance: no apparent distress, alert, thin Neurologic Exam: alert, oriented x 3, cooperative, normal mood/affect, nml cerebellar function, nml station & gait, sensation nml, No motor deficits Eye Exam: PERRL/EOMI, eyes nml inspection Ears, Nose, Throat Exam: normal ENT inspection, TMs normal, pharynx normal, mois t mucous membranes Neck Exam: normal inspection, non-tender, supple, full range of motion Respiratory Exam: crackles/rales (BLUL), wheezing, No respiratory distress Cardiovascular Exam: regular rate/rhythm, normal heart sounds, normal peripheral pulses Gastrointestinal/Abdomen Exam: soft, normal bowel sounds, No tenderness, No mass Back Exam: normal inspection, normal range of motion, No CVA tenderness, No vertebral tenderness Extremity Exam: normal inspection, normal range of motion, pelvis stable Skin Exam: normal color, warm, dry, No rash Lymphatic Exam: No adenopathy Results - Labs Lab/Micro Results: Lab Results-Last 24 Hours 06/22/23 06/22/23 06/22/23 Range/Units 07:45 07:45 07:45 WBC 19.8 H (4.0-10.5) x10^3/uL RBC 4.24 (4.1-5.4) x10^6/uL Hgb 12.9 (12.0-16.0) g/dL Hct 41.5 (35-47) % MCV 97.9 (78-100) fL MCH 30.4 (26-32) pg MCHC 31.1 L (32-36) g/dL RDW 13.8 (11.5-14.0) % Plt Count 355 (150-450) x10^3/uL MPV 9.5 (7.5-11.0) fL Gran % 90.0 H (36.0-66.0) % Immature Gran % (Auto) 0.6 H (0.00-0.4) % Nucleat RBC Rel Count 0.0 (0.00-0.1) % Eos # (Auto) 0.02 (0-0.5) x10^3/uL Immature Gran # (Auto) 0.12 H (0.00-0.03) x10^3u/L Absolute Lymphs (auto) 0.76 L (1.0-4.6) x10^3/uL Absolute Monos (auto) 1.02 (0.0-1.3) x10^3/uL Absolute Nucleated RBC 0.00 (0.00-0.01) x10^3u/L Lymphocytes % 3.8 L (24.0-44.0) % Monocytes % 5.1 (0.0-12.0) % Eosinophils % 0.1 (0.00-5.0) % Basophils % 0.4 (0.0-0.4) % Absolute Granulocytes 17.82 H (1.4-6.9) x10^3/uL Basophils # 0.07 (0-0.4) x10^3/uL PT 13.0 H (9.4-12.5) SECONDS INR 1.21 (0.8-3.0) Sodium 140 (137-145) mmol/L Potassium 4.8 (3.5-5.1) mmol/L Chloride 100 (98-107) mmol/L Carbon Dioxide 30 (22-30) mmol/L Anion Gap 14.2 (5-15) MEQ/L BUN 29 H (7-17) mg/dL Creatinine 0.95 (0.52-1.04) mg/dL Estimated GFR 61.7 ML/MIN Glucose 110 H (74-106) mg/dL Lactic Acid (0.4-2.0) Calcium 11.0 H (8.4-10.2) mg/dL Magnesium 1.9 (1.6-2.3) mg/dL Total Bilirubin 1.40 H (0.2-1.3) mg/dL AST 42 H (14-36) U/L ALT 30 (0-35) U/L Alkaline Phosphatase 103 (38-126) U/L Troponin I 0.015 (0.000-0.034) ng/mL NT-Pro-B Natriuret Pep 18328 (<300) pg/mL Serum Total Protein 7.9 (6.3-8.2) g/dL Albumin 4.5 (3.5-5.0) g/dL Procalcitonin 0.081 H (0.030-0.080) ng/mL Influenza Type A Ag (NEGATIVE) Influenza Type B Ag (NEGATIVE) RSV (PCR) (NEGATIVE) SARS-CoV-2 (PCR) (NEGATIVE) 06/22/23 06/22/23 Range/Units 08:01 Unknown WBC (4.0-10.5) x10^3/uL RBC (4.1-5.4) x10^6/uL Hgb (12.0-16.0) g/dL Hct (35-47) % MCV (78-100) fL MCH (26-32) pg MCHC (32-36) g/dL RDW (11.5-14.0) % Plt Count (150-450) x10^3/uL MPV (7.5-11.0) fL Gran % (36.0-66.0) % Immature Gran % (Auto) (0.00-0.4) % Nucleat RBC Rel Count (0.00-0.1) % Eos # (Auto) (0-0.5) x10^3/uL Immature Gran # (Auto) (0.00-0.03) x10^3u/L Absolute Lymphs (auto) (1.0-4.6) x10^3/uL Absolute Monos (auto) (0.0-1.3) x10^3/uL Absolute Nucleated RBC (0.00-0.01) x10^3u/L Lymphocytes % (24.0-44.0) % Monocytes % (0.0-12.0) % Eosinophils % (0.00-5.0) % Basophils % (0.0-0.4) % Absolute Granulocytes (1.4-6.9) x10^3/uL Basophils # (0-0.4) x10^3/uL PT (9.4-12.5) SECONDS INR (0.8-3.0) Sodium (137-145) mmol/L Potassium (3.5-5.1) mmol/L Chloride (98-107) mmol/L Carbon Dioxide (22-30) mmol/L Anion Gap (5-15) MEQ/L BUN (7-17) mg/dL Creatinine (0.52-1.04) mg/dL Estimated GFR ML/MIN Glucose (74-106) mg/dL Lactic Acid 2.9 H (0.4-2.0) Calcium (8.4-10.2) mg/dL Magnesium (1.6-2.3) mg/dL Total Bilirubin (0.2-1.3) mg/dL AST (14-36) U/L ALT (0-35) U/L Alkaline Phosphatase (38-126) U/L Troponin I (0.000-0.034) ng/mL NT-Pro-B Natriuret Pep (<300) pg/mL Serum Total Protein (6.3-8.2) g/dL Albumin (3.5-5.0) g/dL Procalcitonin (0.030-0.080) ng/mL Influenza Type A Ag NEGATIVE (NEGATIVE) Influenza Type B Ag NEGATIVE (NEGATIVE) RSV (PCR) NEGATIVE (NEGATIVE) SARS-CoV-2 (PCR) NEGATIVE (NEGATIVE) - Radiology Impressions Radiology Exams & Impressions: Radiology Procedures Category Date Time Status CHEST 1 VIEW (PORTABLE) Stat Exams 06/22/23 08:02 Completed - Other Procedures and Tests Respiratory Therapy 06/22/23 10:45 Oxygen Nasal Cannula 2 lpm Respiratory Therapy Consult ONCE Assessment/Plan (1) Sepsis Current Visit: Yes Status: Acute Assessment & Plan: - 2:2 failed OP tx for pneumonia - RR 35 on admission - lactate 2.9 - HR 100- 90's - 500ml fluid blous d/t heart hx - requiring 2LNC - O2 93% - Baseline oxygen is 2LNC at noc - Will recheck lactate in 2 hours post fluid bolus - BC x2 pending - WBC 19.8 (2) Pneumonia Current Visit: Yes Status: Acute Qualifiers: Assessment & Plan: - Zosyn and levofloxacin - Duonebs, steriods - WBC 19.8 - 2 LNC all the time for now - baseline is 2 LNC at night - Flu/ COVID/ RSV negative Code(s): J18.9 - PNEUMONIA, UNSPECIFIED ORGANISM (3) COPD (chronic obstructive pulmonary disease) Current Visit: Yes Status: Acute Assessment & Plan: - 2lNC- 02 93% - Duonebs, advair, steriods, antibiotics. (4) Atrial fibrillation with RVR Current Visit: No Status: Chronic Assessment & Plan: - Chronic - Continue eliquis - Tele Code(s): I48.91 - UNSPECIFIED ATRIAL FIBRILLATION (5) Smoker Current Visit: Yes Status: Acute Assessment & Plan: - advised cessation - nicotine patch Code(s): F17.200 - NICOTINE DEPENDENCE, UNSPECIFIED, UNCOMPLICATED (6) Low BMI Current Visit: Yes Status: Acute Assessment & Plan: -<18 BMI underweight - nutrition consult Code(s): IOF8877 - (7) HTN (hypertension) Current Visit: Yes Status: Chronic Assessment & Plan: - stable - continue home meds Code(s): I10 - ESSENTIAL (PRIMARY) HYPERTENSION (8) Failure of outpatient treatment Current Visit: Yes Status: Acute Assessment & Plan: - noted adds to complexity VTE: Eliquis PPI: Pantoprazole Next of Kin: Catherine Hernandez [phone] Code status: Full D/C plan: 2-3 days Code(s): Z78.9 - OTHER SPECIFIED HEALTH STATUS
[2023-06-22] MEDS ORDERED: NON-FORMULARY ITEM (Ipratropium/Albuterol Sulfate [Combivent Inhaler] 14.7 GM Aer.W.Adap) IH SCH (11:30)
[2023-06-22] MEDS ORDERED: DUONEB 0.5-3 MG/3 ml Neb IH PRN (11:32)
[2023-06-22] MEDS: PROTONIX 40 MG IV IV SCH (11:40)
[2023-06-22] MEDS: DUONEB 0.5-3 MG/3 ml Neb IH SCH ×3 (11:45→19:11)
[2023-06-22] MEDS ORDERED: PIPERACILLIN/TAZOBACTAM 4.5 GM in Sodium Chloride 100ML MINI-BAG PLUS 100 ML IV SCH (12:00)
[2023-06-22] MEDS: Nicoderm CQ 21 MG TOP SCH (12:55)
[2023-06-22] MEDS ORDERED: BENADRYL 12.5 MG/5 ML PO ONE (18:00)
[2023-06-22] MEDS ORDERED: ADVAIR 500-50 DISKUS IH SCH (19:00)
[2023-06-22] MEDS: Advair Hfa 230/21 Mcg COMMON CANISTER IH SCH (19:12)
[2023-06-22] MEDS: PIPERACILLIN/TAZOBACTAM 4.5 GM in Sodium Chloride 100ML MINI-BAG PLUS 100 ML IV SCH (21:17)
[2023-06-22] MEDS: ELIQUIS 2.5 MG TABLET PO SCH (21:18)
[2023-06-22] MEDS: Calcium 500MG W/Vit D Tablet PO SCH (21:18)
[2023-06-22] MEDS: solu-MEDROL 40 MG, Sterile H2O 10 ml 1 ML IV SCH ×2 (21:18)
[2023-06-22] MEDS: ZOCOR 20MG PO SCH (21:18)
[2023-06-22] MEDS: Cozaar 50 MG PO SCH (21:19)
[2023-06-22] MEDS: MELATONIN PO SCH (21:19)
[2023-06-22] MEDS: Lexapro PO SCH (21:19)
[2023-06-22] MEDS: Lopressor 50 MG PO SCH (21:19)
[2023-06-22] MEDS ORDERED: Klor Con PO SCH (22:00)
[2023-06-22] MEDS ORDERED: CALCIUM CARBONATE PO SCH (22:00)
[2023-06-22] MEDS ORDERED: NON-FORMULARY ITEM (Potassium Chloride 20 Meq Tab [Potassium Chloride 20 Meq Tablet] 20 ME PO SCH (22:00)
[2023-06-22] MEDS ORDERED: NON-FORMULARY ITEM (Apixaban*** [Eliquis 5 Mg Tablet***] 5 MG Tablet) PO SCH (22:00)
[2023-06-22] MEDS ORDERED: VITAMIN D3 PO SCH (22:00)
[2023-06-22] MEDS ORDERED: NON-FORMULARY ITEM (Pravastatin Sodium [Pravastatin Sodium] 40 MG Tablet) PO SCH (22:00)
[2023-06-22] MEDS ORDERED: NON-FORMULARY ITEM (Escitalopram Oxalate [Lexapro] 5 MG Tablet) PO SCH (22:00)
[2023-06-22] MEDS ORDERED: NON-FORMULARY ITEM (Melatonin [Melatonin] 5 MG Tablet) PO SCH (22:00)
[2023-06-22] MEDS ORDERED: [UNRECOGNIZED DRUG - OTHER] PO SCH (22:00)
[2023-06-23 05:13] LABS: Hematocrit 33.6 % (35-47); Hemoglobin 10.6 g/dL (12.0-16.0); Mean Cell Volume 95.2 fL (78-100); Mean Corpuscular Hgb Concent. 31.5 g/dL (32-36); Mean Platelet Volume 9.4 fL (7.5-11.0); Platelet Count 287 x10^3/uL (150-450); Red Blood Count 3.53 x10^6/uL (4.1-5.4); Red Cell Distribution Width 14.3 % (11.5-14.0); White Blood Count 16.9 x10^3/uL (4.0-10.5)
[2023-06-23 05:41] LABS: ALBUMIN 3.4 g/dL (3.5-5.0); ANION GAP 8.6 MEQ/L (5-15); Calcium 9.4 mg/dL (8.4-10.2); Creatinine 1 0.94 mg/dL (0.52-1.04); EST GLOMERULAR FILTRATION RATE 62.5 ML/MIN; Potassium 4.1 mmol/L (3.5-5.1); Total Protein 6.4 g/dL (6.3-8.2)
[2023-06-23] MEDS: PIPERACILLIN/TAZOBACTAM 4.5 GM in Sodium Chloride 100ML MINI-BAG PLUS 100 ML IV SCH ×3 (05:44→21:36)
[2023-06-23] MEDS: DUONEB 0.5-3 MG/3 ml Neb IH SCH ×2 (07:26→10:44)
[2023-06-23] MEDS: Advair Hfa 230/21 Mcg COMMON CANISTER IH SCH ×2 (07:31→19:03)
[2023-06-23] MEDS ORDERED: [UNRECOGNIZED DRUG - OTHER] PO SCH (10:00)
[2023-06-23] MEDS ORDERED: FOLIC PO SCH (10:00)
[2023-06-23] MEDS ORDERED: BABY ASPIRIN 81 MG CHEW PO SCH (10:00)
[2023-06-23] MEDS ORDERED: VITK PO SCH (10:00)
[2023-06-23] MEDS ORDERED: NON-FORMULARY ITEM (Iron [Iron] 18 MG Tablet) PO SCH (10:00)
[2023-06-23] MEDS ORDERED: IRON PO SCH (10:00)
[2023-06-23] MEDS ORDERED: LEVOFLOXACIN 750MG/150ML D5W 750 MG/150 ML BAG IV SCH (10:00)
[2023-06-23] MEDS ORDERED: MV MIN PO SCH (10:00)
[2023-06-23] MEDS ORDERED: CALCIUM PO SCH (10:00)
[2023-06-23] MEDS: Cozaar 50 MG PO SCH ×2 (10:53→21:35)
[2023-06-23] MEDS: ECOTRIN 81 MG PO SCH (10:54)
[2023-06-23] MEDS: FEOSOL 325 MG PO SCH (10:55)
[2023-06-23] MEDS: LASIX 20 MG PO SCH (10:55)
[2023-06-23] MEDS: Calcium 500MG W/Vit D Tablet PO SCH ×2 (10:55→21:35)
[2023-06-23] MEDS: Lopressor 50 MG PO SCH ×2 (10:56→21:35)
[2023-06-23] MEDS: Lanoxin 0.125MG TABLET PO SCH (10:57)
[2023-06-23] MEDS: ELIQUIS 2.5 MG TABLET PO SCH ×2 (10:59→21:35)
[2023-06-23] MEDS: THERAGRAN MULTIVITAMIN PO SCH (10:59)
[2023-06-23] MEDS: solu-MEDROL 40 MG, Sterile H2O 10 ml 1 ML IV SCH ×4 (11:05→21:35)
[2023-06-23] MEDS ORDERED: Xopenex 1.25 MG/0.5 ML UD NEBULE IH PRN (11:24)
[2023-06-23] MEDS ORDERED: Sodium Chloride 3 ML UD NEBULES IH PRN (11:24)
[2023-06-23] MEDS ORDERED: LOPRESSOR INJECTION IV ONE (11:45)
--- NOTE | 2023-06-23 12:18 | PCM.NOTE ---
Date and Time: 06/23/23 1212 Subjective Assessment: 06/22/23 is a 78 year old female with PMHX of dementia, CHF, CAD, CABG, a-fib (on eliquis), HTN, anxiety, bladder CA, daily smoker, and COPD. She has chronic respiratory failure and on 2 L oxygen at bedtime. She was recently treated for pneumonia outpatient presented in the ER with increasing shortness of breath. Patient reports normally she does not have to use oxygen during the daytime but lately she is been using oxygen / but still getting short of breath even at resting and gets very worse with minimal activity. Denies any lower extremity swelling. Coughing up yellow-green sputum. She has been using neb treatments with no significant relief. No fever or chills reported. She is currently on 2 LNC at 93%. WBC 19.8, lactic acid 2.9- she did trigger for sepsis. 500ml fluid bolus gave d/t her heart hx. She was given antibiotics and breathing tx in the ER. 06/23/23 Pt resting in bed. She is breathing much better today and lung sounds have improved. HR did increase and she was in a-fib RVR, metoprolol IV gave. HR improved. Breathing treatments changed to Xopenex. Will continue antibiotics and steroids. She is wanting to go home. will consider tomorrow. BC X2 pending. She asked for the nicotine patch to be removed. Family is visiting. She denies any further concerns at this time. - Review of Systems Constitutional: No Fever, No Chills Eyes: No Symptoms Ears, Nose, & Throat: No Symptoms Respiratory: Cough, No Short Of Breath Cardiac: No Chest Pain, No Edema, No Syncope Abdominal/Gastrointestinal: No Abdominal Pain, No Nausea, No Vomiting, No Diarrhea Genitourinary Symptoms: No Dysuria Musculoskeletal: No Back Pain, No Neck Pain Skin: No Rash Neurological: No Dizziness, No Focal Weakness, No Sensory Changes Psychological: No Symptoms Endocrine: No Symptoms Hematologic/Lymphatic: No Symptoms Immunological/Allergic: No Symptoms Objective Exam General Appearance: no apparent distress, alert, thin Neurologic Exam: alert, oriented x 3, cooperative, normal mood/affect, nml cerebellar function, sensation nml, No motor deficits Skin Exam: normal color, warm, dry Eye Exam: PERRL, EOMI, eyes nml inspection Ears, Nose, Throat Exam: normal ENT inspection, pharynx normal, moist mucous membranes Neck Exam: normal inspection, non-tender, supple, full range of motion Respiratory Exam: crackles/rales (RLL), No respiratory distress Cardiovascular Exam: regular rate/rhythm, normal heart sounds Gastrointestinal/Abdomen Exam: soft, No tenderness, No mass Extremity Exam: normal inspection, normal range of motion Back Exam: normal inspection, normal range of motion, No CVA tenderness, No vertebral tenderness Pelvic Exam: deferred Rectal Exam: deferred OBJECTIVE DATA Vital Signs: Vital Signs - 24 hr Temp Pulse Resp BP BP Pulse Ox 06/23/23 11:21 155 H 97/58 06/23/23 10:57 138 H 96/53 06/23/23 10:47 112 H 18 98 06/23/23 10:31 136 H 96/53 06/23/23 08:00 97.7 F 84 15 99/55 100 06/23/23 07:33 83 18 94 L 06/23/23 04:30 97.7 F 91 H 24 112/59 95 06/22/23 23:46 97.4 F 82 18 104/59 97 06/22/23 20:00 98.1 F 93 H 20 118/57 95 06/22/23 19:19 82 18 95 06/22/23 16:15 104 H 22 91 L 06/22/23 15:47 99.2 F 101 H 14 150/70 95 Pain Assessment - Last Documented Pain Intensity 0 Intake and Output: Intake & Output 06/21/23 06/22/23 06/23/23 06/24/23 11:59 11:59 11:59 11:59 Intake Total 983 Output Total 300 Balance 683 Weight 40.7 kg 40.7 kg Lab Results: Lab Results-Last 24 Hours 06/22/23 06/22/23 06/22/23 Range/Units 11:05 12:08 16:35 WBC (4.0-10.5) x10^3/uL RBC (4.1-5.4) x10^6/uL Hgb (12.0-16.0) g/dL Hct (35-47) % MCV (78-100) fL MCH (26-32) pg MCHC (32-36) g/dL RDW (11.5-14.0) % Plt Count (150-450) x10^3/uL MPV (7.5-11.0) fL Sodium (137-145) mmol/L Potassium (3.5-5.1) mmol/L Chloride (98-107) mmol/L Carbon Dioxide (22-30) mmol/L Anion Gap (5-15) MEQ/L BUN (7-17) mg/dL Creatinine (0.52-1.04) mg/dL Estimated GFR ML/MIN Glucose (74-106) mg/dL Lactic Acid 1.5 (0.4-2.0) Calcium (8.4-10.2) mg/dL Total Bilirubin (0.2-1.3) mg/dL AST (14-36) U/L ALT (0-35) U/L Alkaline Phosphatase (38-126) U/L Troponin I 0.020 0.016 (0.000-0.034) ng/mL Serum Total Protein (6.3-8.2) g/dL Albumin (3.5-5.0) g/dL Digoxin (0.8-1.9) ng/mL 06/22/23 06/23/23 06/23/23 Range/Units 16:35 04:30 04:30 WBC 16.9 H (4.0-10.5) x10^3/uL RBC 3.53 L (4.1-5.4) x10^6/uL Hgb 10.6 L (12.0-16.0) g/dL Hct 33.6 L (35-47) % MCV 95.2 (78-100) fL MCH 30.0 (26-32) pg MCHC 31.5 L (32-36) g/dL RDW 14.3 H (11.5-14.0) % Plt Count 287 (150-450) x10^3/uL MPV 9.4 (7.5-11.0) fL Sodium 138 (137-145) mmol/L Potassium 4.1 (3.5-5.1) mmol/L Chloride 101 (98-107) mmol/L Carbon Dioxide 32 H (22-30) mmol/L Anion Gap 8.6 (5-15) MEQ/L BUN 28 H (7-17) mg/dL Creatinine 0.94 (0.52-1.04) mg/dL Estimated GFR 62.5 ML/MIN Glucose 135 H (74-106) mg/dL Lactic Acid (0.4-2.0) Calcium 9.4 (8.4-10.2) mg/dL Total Bilirubin 1.00 (0.2-1.3) mg/dL AST 29 (14-36) U/L ALT 21 (0-35) U/L Alkaline Phosphatase 69 (38-126) U/L Troponin I (0.000-0.034) ng/mL Serum Total Protein 6.4 (6.3-8.2) g/dL Albumin 3.4 L (3.5-5.0) g/dL Digoxin 0.6 L (0.8-1.9) ng/mL Radiology Exams: Radiology Procedures Category Date Time Status CHEST 1 VIEW (PORTABLE) Stat Exams 06/22/23 08:02 Completed Multi-Disciplinary Progress Notes: Multi-Disciplinary Progress Notes 06/23/23 09:50 Case Management Note by Vani Corrales [facility] RE[facility] ([facility]ST CHOICE WAS NOT IN [facility])- THEY WILL NEED NOTIFIED AT TIME OF DC AT [phone]. THEY WILL NEED FAXED THE DC INSTRUCTIONS, DC MED LIST AND DC SUMMARY TO [phone] Initialized on 06/23/23 09:50 - END OF NOTE Assessment/Plan (1) Sepsis Current Visit: Yes Status: Acute (2) Pneumonia Current Visit: Yes Status: Acute Qualifiers: Code(s): J18.9 - PNEUMONIA, UNSPECIFIED ORGANISM (3) COPD (chronic obstructive pulmonary disease) Current Visit: Yes Status: Acute (4) Atrial fibrillation with RVR Current Visit: No Status: Chronic Code(s): I48.91 - UNSPECIFIED ATRIAL FIBRILLATION (5) Smoker Current Visit: Yes Status: Acute Code(s): F17.200 - NICOTINE DEPENDENCE, UNSPECIFIED, UNCOMPLICATED (6) Low BMI Current Visit: Yes Status: Acute Code(s): XWA1243 - (7) HTN (hypertension) Current Visit: Yes Status: Chronic Code(s): I10 - ESSENTIAL (PRIMARY) HYPERTENSION (8) Failure of outpatient treatment Current Visit: Yes Status: Acute Assessment & Plan: - 2:2 failed OP tx for pneumonia - RR 35 on admission - lactate 2.9 - HR 100- 90's - 500ml fluid blous d/t heart hx - requiring 2LNC - O2 93% - Baseline oxygen is 2LNC at noc - Will recheck lactate in 2 hours post fluid bolus - BC x2 pending - WBC 19.8 1/5 - WBC improved 16.9 - LA repeat 1.5 - resolved (2) Pneumonia Current Visit: Yes Status: Acute Qualifiers: Assessment & Plan: - Zosyn and levofloxacin - Duonebs, steriods - WBC 19.8 - 2 LNC all the time for now - baseline is 2 LNC at night - Flu/ COVID/ RSV negative Code(s): J18.9 - PNEUMONIA, UNSPECIFIED ORGANISM (3) COPD (chronic obstructive pulmonary disease) Current Visit: Yes Status: Acute Assessment & Plan: - 2lNC- 02 93% - Duonebs, advair, steriods, antibiotics. (4) Atrial fibrillation with RVR Current Visit: No Status: Chronic Assessment & Plan: - Chronic - Continue eliquis - Tele 06/23 - Metoprolol IV x1 dose Code(s): I48.91 - UNSPECIFIED ATRIAL FIBRILLATION (5) Smoker Current Visit: Yes Status: Acute Assessment & Plan: - advised cessation - nicotine patch 06/23 - refused nicotine patch Code(s): F17.200 - NICOTINE DEPENDENCE, UNSPECIFIED, UNCOMPLICATED (6) Low BMI Current Visit: Yes Status: Acute Assessment & Plan: -<18 BMI underweight - nutrition consult Code(s): [id number] - (7) HTN (hypertension) Current Visit: Yes Status: Chronic Assessment & Plan: - stable - continue home meds Code(s): I10 - ESSENTIAL (PRIMARY) HYPERTENSION (8) Failure of outpatient treatment Current Visit: Yes Status: Acute Assessment & Plan: - noted adds to complexity VTE: Eliquis PPI: Pantoprazole Next of Kin: Catherine Hernandez [phone] Code status: Full D/C plan: 2-3 days Code(s): Z78.9 - OTHER SPECIFIED HEALTH STATUS
[2023-06-23] MEDS: Nicoderm CQ 21 MG TOP SCH (12:21)
[2023-06-23] MEDS: PROTONIX 40 MG IV IV SCH (12:47)
[2023-06-23] MEDS ORDERED: Cyclobenzaprine 10 MG PO ONE (13:51)
[2023-06-23] MEDS: MELATONIN PO SCH (21:34)
[2023-06-23] MEDS: Lexapro PO SCH (21:35)
[2023-06-23] MEDS: ZOCOR 20MG PO SCH (21:35)
[2023-06-24] MEDS: PIPERACILLIN/TAZOBACTAM 4.5 GM in Sodium Chloride 100ML MINI-BAG PLUS 100 ML IV SCH (05:15)
[2023-06-24 06:09] LABS: Hemoglobin 9.7 g/dL (12.0-16.0); Mean Cell Volume 96.9 fL (78-100); Mean Corpuscular Hemoglobin 30.3 pg (26-32); Mean Corpuscular Hgb Concent. 31.3 g/dL (32-36); Mean Platelet Volume 9.6 fL (7.5-11.0); Platelet Count 259 x10^3/uL (150-450); Red Cell Distribution Width 14.1 % (11.5-14.0); White Blood Count 14.7 x10^3/uL (4.0-10.5)
[2023-06-24 06:27] LABS: ALBUMIN 3.2 g/dL (3.5-5.0); ANION GAP 8.9 MEQ/L (5-15); BILIRUBIN,TOTAL 0.6 mg/dL (0.2-1.3); Calcium 8.2 mg/dL (8.4-10.2); Creatinine 1 0.94 mg/dL (0.52-1.04); EST GLOMERULAR FILTRATION RATE 62.5 ML/MIN; Potassium 3.7 mmol/L (3.5-5.1)
[2023-06-24] MEDS: ELIQUIS 2.5 MG TABLET PO SCH (09:14)
[2023-06-24] MEDS: Calcium 500MG W/Vit D Tablet PO SCH (09:14)
[2023-06-24] MEDS: THERAGRAN MULTIVITAMIN PO SCH (09:14)
[2023-06-24] MEDS: Lopressor 50 MG PO SCH (09:14)
[2023-06-24] MEDS: Cozaar 50 MG PO SCH (09:15)
[2023-06-24] MEDS: FEOSOL 325 MG PO SCH (09:15)
[2023-06-24] MEDS: Lanoxin 0.125MG TABLET PO SCH (09:15)
[2023-06-24] MEDS: ECOTRIN 81 MG PO SCH (09:15)
[2023-06-24] MEDS: LASIX 20 MG PO SCH (09:15)
[2023-06-24] MEDS: solu-MEDROL 40 MG, Sterile H2O 10 ml 1 ML IV SCH ×2 (09:17)
[2023-06-24] MEDS: Advair Hfa 230/21 Mcg COMMON CANISTER IH SCH (09:56)
[2023-06-24] MEDS: Nicoderm CQ 21 MG TOP SCH (11:15)
--- NOTE | 2023-06-24 11:52 | PCM.DS ---
Discharge Summary Date of Admission: 06/22/23 10:44 Date of Discharge: 06/24/23 Admitting Physician: FAVIAN LEAHY MD Consults: Consults on Case 06/22/23 09:56 Consult Ortho ROUTINE 06/22/23 12:03 Nutritional Consult ROUTINE Primary Care Provider: KIM GOLDMAN Allergies Allergies propofol Adverse Reaction (Severe, Verified 06/22/23 07:31) family states "really crazy and confused with her heart surgery" amiodarone Adverse Reaction (Unknown, Verified 06/22/23 07:31) pt and daughter states "not sure" cardiol. stated allergy Hospital Summary - Hospital Course Hospital Course: 06/22/23 is a 78 year old female with PMHX of dementia, CHF, CAD, CABG, a-fib (on eliquis), HTN, anxiety, bladder CA, daily smoker, and COPD. She has chronic respiratory failure and on 2 L oxygen at bedtime. She was recently treated for pneumonia outpatient presented in the ER with increasing shortness of breath. Patient reports normally she does not have to use oxygen during the daytime but lately she is been using oxygen 09/01 but still getting short of breath even at resting and gets very worse with minimal activity. Denies any lower extremity swelling. Coughing up yellow-green sputum. She has been using neb treatments with no significant relief. No fever or chills reported. She is currently on 2 LNC at 93%. WBC 19.8, lactic acid 2.9- she did trigger for sepsis. 500ml fluid bolus gave d/t her heart hx. She was given antibiotics and breathing tx in the ER. 06/23/23 Pt resting in bed. She is breathing much better today and lung sounds have improved. HR did increase and she was in a-fib RVR, metoprolol IV gave. HR improved. Breathing treatments changed to Xopenex. Will continue antibiotics and steroids. She is wanting to go home. will consider tomorrow. BC X2 pending. She asked for the nicotine patch to be removed. Family is visiting. She denies any further concerns at this time. 06/24/23 Pt resting in bed. She feels much better and would like to go home. Lung sounds improved. BC X2 negative. Pt states she had been getting up an using the bathroom therefore I &O's are not accurate. Bladder scan showed little to no urine in bladder when checked. She denies any concerns at this time. - Vitals & Intake/Output Vital Signs: Vital Signs Temperature 97.7 F 06/24/23 07:00 Pulse Rate 100 H 06/24/23 10:02 Respiratory Rate 18 06/24/23 10:02 Blood Pressure 113/60 06/24/23 09:15 O2 Sat by Pulse Oximetry 98 06/24/23 10:02 Intake & Output: Intake & Output 06/21/23 06/22/23 06/23/23 06/24/23 11:59 11:59 11:59 11:59 Intake Total 983 455 Output Total 300 400 Balance 683 55 Weight 40.7 kg 40.7 kg - Lab Result Diagrams: 06/24/23 05:20 06/24/23 05:20 Lab Results-Last 24 Hrs: Lab Results-Last 24 Hours 06/23/23 06/24/23 06/24/23 Range/Units 04:30 05:20 05:20 WBC 14.7 H (4.0-10.5) x10^3/uL RBC 3.20 L (4.1-5.4) x10^6/uL Hgb 9.7 L (12.0-16.0) g/dL Hct 31.0 L (35-47) % MCV 96.9 (78-100) fL MCH 30.3 (26-32) pg MCHC 31.3 L (32-36) g/dL RDW 14.1 H (11.5-14.0) % Plt Count 259 (150-450) x10^3/uL MPV 9.6 (7.5-11.0) fL Sodium 135 L (137-145) mmol/L Potassium 3.7 (3.5-5.1) mmol/L Chloride 101 (98-107) mmol/L Carbon Dioxide 29 (22-30) mmol/L Anion Gap 8.9 (5-15) MEQ/L BUN 29 H (7-17) mg/dL Creatinine 0.94 (0.52-1.04) mg/dL Estimated GFR 62.5 ML/MIN Glucose 128 H (74-106) mg/dL Calcium 8.2 L (8.4-10.2) mg/dL Magnesium 1.8 (1.6-2.3) mg/dL Total Bilirubin 0.60 (0.2-1.3) mg/dL AST 30 (14-36) U/L ALT 18 (0-35) U/L Alkaline Phosphatase 60 (38-126) U/L Serum Total Protein 6.0 L (6.3-8.2) g/dL Albumin 3.2 L (3.5-5.0) g/dL Micro Results-Entire Visit: Microbiology 06/22/23 08:31 Blood Culture - Preliminary Blood 06/22/23 08:21 Blood Culture - Preliminary Blood 06/22/23 18:00 Gram Stain - Preliminary Sputum - Expectorant - Procedures and Test Procedures and Tests throughout Hospitalization: Therapy Orders & Screens 06/22/23 08:36 Respiratory Therapy Assessment DAILY Comment: 06/22/23 10:45 Respiratory Therapy Consult ONCE Comment: Reason For Exam: 06/22/23 11:17 Oxygen Nasal Cannula 2 lpm Comment: Respiratory Therapy Assessment DAILY Comment: 06/22/23 19:14 Smoking Cessation Education ONCE Comment: Diagnosis: sepsis/ pneumonia Smoking Status: Current every day smoker How long have you smoked: 60 yrs Have you smoked in the past 12 months: Yes Approximately how many cigarettes per day: less than 1 pack Do you dip or chew tobacco: No If,Former Smoker,when did you quit: 01/17/22 ST Screen per Nursing Assess ONCE Comment: Protocol Order Physician Instructions: Greater than [address] Admission Screening Reason For Exam: Triggered on Admission Diagnosis: sepsis/ pneumonia CVA/Dyshpagia/Aphasia: No Cognitive Deficits: Yes Dehydration/Nutrition Deficit: Yes Reflux: No Oral-Motor Difficulties: No Pneumonia: No [facility] Resident: No Total Points: 8 06/23/23 09:37 Qualify for Home Oxygen TODAY Comment: Diagnosis: sepsis/ pneumonia 06/23/23 12:13 EKG ONCE Comment: Diagnosis: sepsis/ pneumonia Discharge Exam General Appearance: no apparent distress, alert Neurologic Exam: alert, oriented x 3, cooperative, normal mood/affect, nml cerebellar function, sensation nml, No motor deficits Eye Exam: PERRL, EOMI, eyes nml inspection Ears, Nose, Throat Exam: normal ENT inspection, pharynx normal, moist mucous membranes Neck Exam: normal inspection, non-tender, supple, full range of motion Respiratory Exam: normal breath sounds, lungs clear, wheezing (BLLL), No respiratory distress Cardiovascular Exam: regular rate/rhythm, normal heart sounds Gastrointestinal/Abdomen Exam: soft, No tenderness, No mass Pelvic Exam: deferred Rectal Exam: deferred Back Exam: normal inspection, normal range of motion, No CVA tenderness, No vertebral tenderness Extremity Exam: normal inspection, normal range of motion Skin Exam: normal color, warm, dry Final Diagnosis/Problem List - Final Discharge Diagnosis/Problem (1) Sepsis Current Visit: Yes Status: Acute Assessment & Plan: Sepsis: - 2:2 failed OP tx for pneumonia - RR 35 on admission - lactate 2.9 - HR 100- 90's - 500ml fluid blous d/t heart hx - requiring 2LNC - O2 93% - Baseline oxygen is 2LNC at [facility] - Will recheck lactate in 2 hours post fluid bolus - BC x2 pending - WBC 19.8 / - WBC improved 16.9 - LA repeat 1.5 - resolved 06/24 - WBC 14.7 (2) Pneumonia Current Visit: Yes Status: Acute Qualifiers: Assessment & Plan: - Zosyn and levofloxacin - Duonebs, steriods - WBC 19.8 - 2 LNC all the time for now - baseline is 2 LNC at night - Flu/ COVID/ RSV negative - CXR: 06/22/23 Portable chest limited with left costophrenic angle not included. Stable COPD with scattered fibrosis/scarring. New mild right upper lobe infiltrate/atelectasis and new 1.8 cm right midlung nodule. Left lower lobe interstitial opacities improved with minimal residual. Heart not enlarged again with CABG. Bony thorax intact Code(s): J18.9 - PNEUMONIA, UNSPECIFIED ORGANISM (3) COPD (chronic obstructive pulmonary disease) Current Visit: Yes Status: Acute Assessment & Plan: - 2lNC- 02 93% - Duonebs, advair, steriods, antibiotics. (4) Atrial fibrillation with RVR Current Visit: No Status: Chronic Assessment & Plan: - Chronic - Continue eliquis - Tele 06/23 - Metoprolol IV x1 dose 06/24 - Afib controlled today Code(s): I48.91 - UNSPECIFIED ATRIAL FIBRILLATION (5) Smoker Current Visit: Yes Status: Acute Assessment & Plan: - advised cessation - nicotine patch 06/23 - refused nicotine patch Code(s): F17.200 - NICOTINE DEPENDENCE, UNSPECIFIED, UNCOMPLICATED (6) Low BMI Current Visit: Yes Status: Acute Assessment & Plan: -<18 BMI underweight - nutrition consult Code(s): NOC1849 - (7) HTN (hypertension) Current Visit: Yes Status: Chronic Assessment & Plan: - stable - continue home meds Code(s): I10 - ESSENTIAL (PRIMARY) HYPERTENSION (8) Failure of outpatient treatment Current Visit: Yes Status: Acute Assessment & Plan: - noted adds to complexity (2) Pneumonia Current Visit: Yes Status: Acute Code(s): J18.9 - PNEUMONIA, UNSPECIFIED ORGANISM (3) COPD (chronic obstructive pulmonary disease) Current Visit: Yes Status: Acute (4) Atrial fibrillation with RVR Current Visit: No Status: Chronic Code(s): I48.91 - UNSPECIFIED ATRIAL FIBRILLATION (5) Smoker Current Visit: Yes Status: Acute Code(s): F17.200 - NICOTINE DEPENDENCE, UNSPECIFIED, UNCOMPLICATED (6) Low BMI Current Visit: Yes Status: Acute Code(s): [id number] - (7) HTN (hypertension) Current Visit: Yes Status: Chronic Code(s): I10 - ESSENTIAL (PRIMARY) HYPERT ENSION (8) Failure of outpatient treatment Current Visit: Yes Status: Acute Code(s): Z78.9 - OTHER SPECIFIED HEALTH STATUS - Discharge Discharge Date: 06/24/23 Disposition: Home, Self-Care Condition: Stable Prescriptions: New Cefdinir 300 mg PO BID 5 Days #10 cap Continue Furosemide 20 mg [Lasix 20 mg] 20 mg PO DAILY Potassium Chloride 20 Meq Tab [Potassium Chloride 20 MEQ TABLET] 20 meq PO BID Digoxin 0.125 mg Tablet [Lanoxin 0.125MG TABLET] 0.0625 mg PO DAILY Ipratropium/Albuterol Sulfate [Combivent Inhaler] 1 canister IH TID PRN Losartan Potassium 50 mg [Cozaar 50 MG] 50 mg PO BID Pravastatin Sodium 40 mg PO QHS Calcium Carbonate/Vitamin D3 [Calcium 500-Vit D3 125 Caplet] 1 each PO BID Apixaban [Eliquis 5 mg Tablet] 5 mg PO BID Aspirin 81 gm Chew [Baby Aspirin 81 mg Chew] 81 mg PO DAILY Donepezil HCl [Aricept] 5 mg PO HS Hydroxyzine HCl 25 mg [Atarax 25 mg] 12.5 mg PO TIDPRN Ipratropium/Albuterol Sulfate [Iprat-Albut 0.5-3(2.5) mg/3 ml] 1 neb IN QID Escitalopram Oxalate [Lexapro] 10 mg PO HS Metoprolol Tartrate 50 mg [Lopressor 50 MG] 50 mg PO BID Mv-Min/Iron/Folic/Calcium/Vitk [Women's Multivitamin Tablet] 1 tab PO DAILY Melatonin 5 mg PO HS Iron 1 tab PO DAILY Instructions: Pneumonia, Adult (DC) Additional Instructions: [facility] THEY WILL CALL YOU OR YOUR SON TO ARRANGE A TIME TO COME SEE YOU. THEIR PHONE NUMBER IS [phone] IF YOU NEED ANYTHING BEFORE THEIR FIRST VISIT A REFERRAL WAS ALSO SENT TO [facility] TO SEE IF YOU CAN GET HOME DELIVERED MEALS SET UP. THEY SHOULD REACH OUT TO YOU OR YOUR SON SOON, YOU CAN FOLLOW UP WITH THEM AT [phone] You need to follow up with Pulmonology for further evaluation of right mid- lung nodule seen on XR. Follow up with: KIM GOLDMAN MD [Primary Care Provider] - Call for Appointment Forms: Discharge Instructions
[2023-06-24] MEDS: PROTONIX 40 MG IV IV SCH (11:56)
[2023-06-24 12:26] VITALS: BP 98/51; PULSE 97; RESP 17; TEMP 98.2; O2SAT 96
== END 2023-06-24 12:20 | disposition home or self-care (01) | DRG 871 ==
LOC: ED 07:30 → MED SURG 10:44 → OBSVTOIN 10:44
PROVIDERS: ADMIT Internal Medicine; ATTEND Internal Medicine
DX: A41.9 Sepsis, unspecified organism (principal); J18.9 Pneumonia, unspecified organism; J44.9 Chronic obstructive pulmonary disease, unspecified; I48.91 Unspecified atrial fibrillation; F17.200 Nicotine dependence, unspecified, uncomplicated; R63.6 Underweight; I11.0 Hypertensive heart disease with heart failure; I50.9 Heart failure, unspecified; D72.829 Elevated white blood cell count, unspecified; I25.10 Atherosclerotic heart disease of native coronary artery without angina pectoris; F03.90 Unspecified dementia, unspecified severity, without behavioral disturbance, psychotic disturbance, mood disturbance, and anxiety; C67.9 Malignant neoplasm of bladder, unspecified; Z95.0 Presence of cardiac pacemaker; Z78.9 Other specified health status; Z79.01 Long term (current) use of anticoagulants; Z79.899 Other long term (current) drug therapy; Z20.828 Contact with and (suspected) exposure to other viral communicable diseases; Z99.81 Dependence on supplemental oxygen
CPT/HCPCS: 0241U; 36000; 36415; 71045; 80053; 80162; 83605; 83735; 83880; 84145; 84484; 85025; 85027; 85610; 87040; 87070; 87077; 93005; 93041; 94640; 94760; 94762; 96365; 96367; 99284; Q3014; J0456; J0696; J1956; J2543; J2920; A9270-GY

== ENCOUNTER 2023-08-19 23:54 | Inpatient (IN) | payer MEDICARE ==
[2023-08-20] MEDS ORDERED: DUONEB 0.5-3 MG/3 ml Neb IH ONE
[2023-08-20] MEDS: DUONEB 0.5-3 MG/3 ml Neb IH ONE (00:07)
[2023-08-20] MEDS ORDERED: Sterile H2O 10 ml IJ ONE (00:33)
[2023-08-20] MEDS ORDERED: solu-MEDROL ONE (00:33)
[2023-08-20 00:34] LABS: Hematocrit 39.3 % (35-47); Hemoglobin 11.8 g/dL (12.0-16.0); Mean Corpuscular Hemoglobin 29.7 pg (26-32); Mean Platelet Volume 10.3 fL (7.5-11.0); Platelet Count 303 x10^3/uL (150-450); Red Blood Count 3.97 x10^6/uL (4.1-5.4); Red Cell Distribution Width 13.9 % (11.5-14.0); White Blood Count 23.8 x10^3/uL (4.0-10.5)
[2023-08-20] MEDS: solu-MEDROL 125 MG, Sterile H2O 10 ml 10 ML IV ONE (00:35)
--- NOTE | 2023-08-20 00:35 | ERPHSYRPT ---
- History of Present Illness Time Seen by Provider: 08/20/23 00:20 Source: patient, family Exam Limitations: no limitations Patient Subjective Stated Complaint: shortness of breath Triage Nursing Assessment: pt brought into ER by her son, back to ER via wheelchair. Pt c/o sob since 10am this morning. Lungs coarse/rattley on expiration ant and post. Pt has a rattley cough, prod at times per pt, but pt unsure of color of phlegm. Pt denies any chest pain, no edema noted. Pt wears O2 2L n/c at home. Pt arrived in ER wearing her home O2 at 3L, O2 sats were 87%. Increased pt's O2 to 4L n/c, O2 sats 90-92%. Physician History: 78-year-old female with multiple medical problems including coronary artery disease status post CABG, congestive heart failure, atrial fibrillation on Eliquis, hypertension, hyperlipidemia, tobacco abuse, COPD with chronic respiratory failure on 2 L oxygen presented in the ER with complaints of increasing shortness of breath since yesterday morning. Patient apparently having worsening cough for the last 4 to 5 days, coughing up thick mucus. Reports getting shortness of breath initially with activity and now even resting. She increased her oxygen to 3 L but still was having difficulty catching her breath. Denies any chest pain or palpitation but wheezing and pressure especially on the right side. Patient denies any known sick contact. Patient oxygen saturation around 86/87% on 3 L, initially placed on 5 L and currently on 4 L with sats in low 90s. Allergies/Adverse Reactions: propofol Adverse Reaction (Severe, Verified 08/20/23 00:17) family states "really crazy and confused with her heart surgery" amiodarone Adverse Reaction (Unknown, Verified 08/20/23 00:17) pt and daughter states "not sure" cardiol. stated allergy Home Medications: Digoxin 0.125 mg Tablet [Lanoxin 0.125MG TABLET] 0.0625 mg PO DAILY 03/25/13 [History] Furosemide 20 mg [Lasix 20 mg] 20 mg PO DAILY 03/25/13 [History] Potassium Chloride 20 Meq Tab [Potassium Chloride 20 MEQ TABLET] 20 meq PO BID 03/25/13 [History] Calcium Carbonate/Vitamin D3 [Calcium 500-Vit D3 125 Caplet] 1 each PO BID 03/21/15 [History] Losartan Potassium 50 mg [Cozaar 50 MG] 50 mg PO BID 03/21/15 [History] Pravastatin Sodium 40 mg PO QHS 03/21/15 [History] Apixaban [Eliquis 5 mg Tablet] 5 mg PO BID 01/14/22 [History] Aspirin 81 gm Chew [Baby Aspirin 81 mg Chew] 81 mg PO DAILY 01/19/22 [History] Donepezil HCl [Aricept] 5 mg PO HS 06/22/23 [History] Escitalopram Oxalate [Lexapro] 10 mg PO HS 06/22/23 [History] Ipratropium/Albuterol Sulfate [Iprat-Albut 0.5-3(2.5) mg/3 ml] 1 neb IN QID 06/22/23 [History] Iron 365 mg PO DAILY 06/22/23 [History] Melatonin 5 mg PO HS 06/22/23 [History] Mv-Min/Iron/Folic/Calcium/Vitk [Women's Multivitamin Tablet] 1 tab PO DAILY 06/22/23 [History] Metoprolol Succinate 50 mg [Toprol Xl 50 MG] 50 mg PO BID 08/20/23 [History] Hx Tetanus, Diphtheria Vaccination/Date Given: Yes Hx Influenza Vaccination/Date Given: No Hx Pneumococcal Vaccination/Date Given: Yes Travel Risk - International Travel Have you traveled outside of the country in past 3 weeks: No - Coronavirus Screening Are you exhibiting any of the following symptoms?: Yes Symptoms: Cough: New Onset, Shortness of Breath Close contact with a COVID-19 positive Pt in past 14-21 Days: No - Vaccine Status Have you recieved a Covid-19 vaccination: 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[employer]: [employer] - Vaccination Dates Date of 2cond Vaccination (if applicable): unknown - Review of Systems Constitutional: No Symptoms Eyes: No Symptoms Ears, Nose, & Throat: No Symptoms Respiratory: Cough, Dyspnea, Dyspnea on Exertion (ACEVEDO), Wheezing Cardiac: No Symptoms Abdominal/Gastrointestinal: No Symptoms Genitourinary Symptoms: No Symptoms Musculoskeletal: No Symptoms Skin: No Symptoms Neurological: No Symptoms Endocrine: No Symptoms Immunological/Allergic: No Symptoms - Past Medical History Pertinent Past Medical History: Yes Neurological History: Dementia ENT History: No Pertinent History Cardiac History: Congestive Heart Failure, Coronary Artery Disease, Hypertension Respiratory History: COPD Endocrine Medical History: No Pertinent History Musculoskeletal History: No Pertinent History GI Medical History: No Pertinent History History: Bladder Cancer Psycho-Social History: Anxiety Female Reproductive Disorders: No Pertinent History Other Medical History: hx of UTIs - Past Surgical History Past Surgical History: Yes (CABG) Neuro Surgical History: No Pertinent History Cardiac: CABG Respiratory: No Pertinent History Gastrointestinal: No Pertinent History Genitourinary: Other Musculoskeletal: No Pertinent History Female Surgical History: No Pertinent History Other Surgical History: tonsils as a child - Social History Smoking Status: Current every day smoker How long have you smoked: 65 yrs Exposure to second hand smoke: Yes Drug Use: none Patient Lives Alone: Yes (son lives next door) - Nursing Vital Signs Nursing Vital Signs: Initial Vital Signs Temperature 97.6 F 08/20/23 00:01 Pulse Rate 87 08/20/23 00:01 Respiratory Rate 22 08/20/23 00:01 Blood Pressure 150/89 08/20/23 00:01 O2 Sat by Pulse Oximetry 90 L 08/20/23 00:01 Pain Scale Pain Intensity 0 - Physical Exam General Appearance: no apparent distress, alert, cachetic Eye Exam: PERRL/EOMI Ears, Nose, Throat Exam: hearing grossly normal Neck Exam: normal inspection, non-tender, supple, full range of motion Respiratory Exam: crackles/rales, rhonchi, wheezing Cardiovascular/Chest Exam: normal heart sounds, irregular Abdominal/Gastrointestinal Exam: soft, normal bowel sounds, No tenderness Extremity Exam: non-tender, normal range of motion Neurologic Exam: alert, oriented x 3, cooperative Skin Exam: normal color SpO2 Interpretation: O2 applied SpO2: 92 O2 Delivery: Nasal Cannula - Course EKG Interpreted by Me: RATE (90), A-fib, Right [place] Deviation, NORMAL INTERVALS, Non-specific ST Changes, Other (PVCs) Ordered Tests: Active Orders 24 hr Category Date Time Status Bedrest ROUTINE Activity 08/20/23 02:13 Active Up With Assistance ROUTINE Activity 08/20/23 02:13 Active Call Admit Doctor for Orders ON ADMISSION Care 08/20/23 02:13 Active Crane Hoist Or Lift Operator STAT Care 08/20/23 00:28 Completed Code Status Order ROUTINE Care 08/20/23 02:13 Active EKG-ER Only STAT Care 08/20/23 00:27 Completed Fall Protocol Q1H Care 08/20/23 02:13 Completed IV Insertion STAT Care 08/20/23 00:27 Completed Oxygen-ED Only Nasal Cannula 5 lpm Care 08/20/23 00:[address] in Observation ROUTINE Care 08/20/23 02:13 Active Heart-Healthy Diet Diet 08/20/23 Breakfast Active CHEST 1 VIEW (PORTABLE) Stat Exams 08/20/23 00:13 Completed BLOOD CULTURE Stat Lab 08/20/23 00:53 Stop Req CBC W DIFF Stat Lab 08/20/23 00:33 Completed CMP Stat Lab 08/20/23 00:33 Completed Lactic Acid Stat Lab 08/20/23 00:27 Completed MAGNESIUM Stat Lab 08/20/23 00:33 Completed Manual Differential NC Stat Lab 08/20/23 00:33 Completed NT PRO BNPII Stat Lab 08/20/23 00:33 Completed TROPONIN Q4H Lab 08/20/23 00:33 Completed TROPONIN Q4H Lab 08/20/23 04:24 Completed TROPONIN Q4H Lab 08/20/23 08:40 Completed Oxygen Nasal Cannula 4 lpm RT 08/20/23 02:13 Active Pulse Oximetry CONTINUOUS RT 08/20/23 02:13 Active Respiratory Therapy Consult ONCE RT 08/20/23 02:13 Completed Transfer Order Routine Transfer 08/20/23 Completed Medication Summary Generic Name Dose Route Start Last Admin Trade Name Freq PRN Reason Stop Dose Admin Apixaban 5 mg 08/20/23 10:00 08/20/23 09:46 Apixaban 2.5 Mg Tablet PO 09/19/23 09:59 5 mg BID GARRETT Administration Aspirin 81 mg 08/20/23 10:00 08/20/23 09:46 Aspirin 81 Mg Tablet.Ec PO 09/19/23 09:59 81 mg DAILY GARRETT Administration Calcium Carbonate 1 tab 08/20/23 10:00 08/20/23 09:46 Calcium Carbonate 500 Mg/Vitamin D 1 Tab Tablet PO 09/19/23 09:59 1 tab BID GARRETT Administration Methylprednisolone Sodium 0 mg 08/20/23 13:00 08/20/23 12:56 Succinate 20 mg/ Sterile Water IV 09/19/23 12:59 20 mg 1 ml Q12HT GARRETT Administration Digoxin 0.0625 mg 08/20/23 10:00 08/20/23 09:47 Digoxin 0.125 Mg Tablet PO 09/19/23 09:59 0.0625 mg DAILY GARRETT Administration Diphenhydramine HCl 25 mg 08/20/23 12:39 08/20/23 13:06 Diphenhydramine Hcl 50 Mg/Ml Vial IV 09/19/23 12:38 25 mg DAILY PRN PRN Administration ANXIETY Docusate Sodium 100 mg 08/20/23 10:17 Docusate Sodium 100 Mg Capsule PO 09/19/23 10:16 BIDPRN PRN CONSTIPATION Donepezil HCl 5 mg 08/20/23 22:00 Donepezil Hcl 10 Mg Tablet PO 09/19/23 21:59 HS [facility] Escitalopram Oxalate 10 mg 08/20/23 22:00 Escitalopram Oxalate 10 Mg Tablet PO 09/19/23 21:59 HS [facility] Ferrous Sulfate 325 mg 08/20/23 10:00 08/20/23 09:47 Ferrous Sulfate 325 Mg Tablet PO 09/19/23 09:59 325 mg DAILY GARRETT Administration Furosemide 20 mg 08/20/23 10:00 08/20/23 16:44 Furosemide 20 Mg/Vial IV 09/19/23 09:59 20 mg BID DIURETIC GARRETT Administration Azithromycin 500 mg in 250 mls @ 250 mls/hr 08/20/23 22:00 Zithromax 500 Mg/ 250 Ml Nacl Premix IV 09/19/23 21:59 Q24H22 GARRETT Ceftriaxone Sodium 1 gm in 100 mls @ 200 mls/hr 08/20/23 22:00 Rocephin 1 Gm / 100 Ml Nacl IV 09/19/23 02:14 Q24H22 GARRETT Levalbuterol HCl 1.25 mg 08/20/23 13:00 08/20/23 19:01 Levalbuterol Hcl 1.25 Mg/0.5 Ml Neb IH 09/19/23 12:59 1.25 mg Q6HRT GARRETT Administration Melatonin 6 mg 08/20/23 22:00 Melatonin 3 Mg Tablet PO 09/19/23 21:59 HS [facility] Metoprolol Succinate 50 mg 08/20/23 10:00 08/20/23 09:47 Metoprolol Succinate 50 Mg Tablet.Sa PO 09/19/23 09:59 50 mg BID GARRETT Administration Multivitamins Therapeutic 1 tab 08/20/23 10:00 08/20/23 09:47 Multivitamins,Therapeutic 1 Tab Tab PO 09/19/23 09:59 1 tab DAILY GARRETT Administration Ondansetron HCl 4 mg 08/20/23 02:04 Ondansetron Hcl 4 Mg/2 Ml Vial IV 09/19/23 02:03 Q6H PRN PRN NAUSEA/VOMITING Patiromer 8.4 gm 08/20/23 10:00 08/20/23 09:49 Patiromer Calcium Sorbitex 8.4 Gm Powd.Pack PO 09/19/23 09:59 8.4 gm DAILY GARRETT Administration Simvastatin 40 mg 08/20/23 22:00 Simvastatin 20 Mg Tablet PO 09/19/23 21:59 QHS GARRETT Sodium Chloride 3 ml 08/20/23 13:00 08/20/23 13:01 Sodium Cl For Inhalation 3 Ml Ud Nebule 09/19/23 12:59 3 ml Q6HRT GARRETT Administration Discontinued Medications Generic Name Dose Route Start Last Admin Trade Name Freq PRN Reason Stop Dose Admin Albuterol/Ipratropium Confirm 08/20/23 00:00 Ipratropium/Albuterol Sulfate 3 Ml Ampul.Neb Administered 08/20/23 00:01 Dose 3 ml IH .STK-MED ONE Albuterol/Ipratropium 3 ml 08/20/23 00:06 08/20/23 00:07 Ipratropium/Albuterol Sulfate 3 Ml Ampul.Neb 08/20/23 00:07 3 ml STAT ONE Administration Albuterol/Ipratropium 3 ml 08/20/23 07:00 08/20/23 06:46 Ipratropium/Albuterol Sulfate 3 Ml Ampul.Neb 09/19/23 06:59 3 ml Q6HRT GARRETT Administration Methylprednisolone Sodium 0 mg 08/20/23 00:27 08/20/23 00:35 Succinate 125 mg/ Sterile IV 08/20/23 00:28 125 mg Water 10 ml STAT ONE Administration Furosemide 20 mg 08/20/23 10:00 Furosemide 20 Mg Tablet PO 09/19/23 09:59 DAILY GARRETT Ceftriaxone Sodium 1 gm in 100 mls @ 200 mls/hr 08/20/23 00:27 08/20/23 01:08 Rocephin 1 Gm / 100 Ml Nacl IV 08/20/23 00:56 200 mls/hr STAT ONE 200 mls/hr Administration Azithromycin 500 mg in 250 mls @ 250 mls/hr 08/20/23 00:29 08/20/23 01:54 Zithromax 500 Mg/ 250 Ml Nacl Premix IV 08/20/23 01:28 250 ml/hr STAT STA 250 mls/hr Administration Ceftriaxone Sodium Confirm 08/20/23 01:04 Rocephin 1 Gm / 100 Ml Nacl Administered 08/20/23 01:05 Dose 1 gm in 100 mls @ ud IV .STK-MED ONE Sodium Chloride 500 mls @ 500 mls/hr 08/20/23 01:25 08/20/23 01:53 Sodium Chloride 0.9% 500 Ml IV 08/20/23 02:24 500 mls/hr .Q1H ONE Administration Azithromycin Confirm 08/20/23 01:42 Zithromax 500 Mg/ 250 Ml Nacl Premix Administered 08/20/23 01:43 Dose 500 mg in 250 mls @ ud IV .STK-MED ONE Sodium Chloride Confirm 08/20/23 01:42 Sodium Chloride 0.9% 500 Ml Administered 08/20/23 01:43 Dose 500 mls @ ud IV .STK-MED ONE Ceftriaxone Sodium 1 gm in 100 mls @ 200 mls/hr 08/20/23 02:15 08/20/23 04:39 Rocephin 1 Gm / 100 Ml Nacl IV 09/19/23 02:14 Not Given Q24H GARRETT Sodium Chloride 500 mls @ 500 mls/hr 08/20/23 07:38 08/20/23 07:47 Sodium Chloride 0.9% 500 Ml IV 08/20/23 08:37 500 mls/hr .Q1H ONE Administration Levalbuterol HCl 1.25 mg 08/20/23 13:00 Levalbuterol Hcl 1.25 Mg/0.5 Ml Neb IH 09/19/23 12:59 Q6HRT GARRETT Methylprednisolone Sodium Succinate Confirm 08/20/23 00:33 Methylprednis Sod Succ 125 Mg/2 Ml Vial Administered 08/20/23 00:34 Dose 125 mg .ROUTE .STK-MED ONE Sodium Chloride Confirm 08/20/23 12:57 Sodium Cl For Inhalation 3 Ml Ud Nebule Administered 08/20/23 12:58 Dose 3 ml IH .STK-Exacaster ONE Sterile Water Confirm 08/20/23 00:33 Water For Injection,Sterile 10 Ml Vial Administered 08/20/23 00:34 Dose 10 ml IJ .STK-MED ONE Lab/Rad Data: Laboratory Result Diagrams 08/20/23 00:33 08/20/23 00:33 Laboratory Results 08/20/23 08/20/23 08/20/23 Range/Units 00:53 00:33 00:33 WBC (4.0-10.5) x10^3/uL RBC (4.1-5.4) x10^6/uL Hgb (12.0-16.0) g/dL Hct (35-47) % MCV (78-100) fL MCH (26-32) pg MCHC (32-36) g/dL RDW (11.5-14.0) % Plt Count (150-450) x10^3/uL MPV (7.5-11.0) fL Segmented Neutrophils (36.0-66.0) % Band Neutrophils (0.0-2.0) % Lymphocytes (Manual) (24-44) % Monocytes (Manual) (0.0-12.0) % Platelet Estimate (NORMAL) RBC Morphology Polychromasia Sodium 139 (137-145) mmol/L Potassium 5.2 H (3.5-5.1) mmol/L Chloride 100 (98-107) mmol/L Carbon Dioxide 26 (22-30) mmol/L Anion Gap 18.7 H (5-15) MEQ/L BUN 37 H (7-17) mg/dL Creatinine 0.93 (0.52-1.04) mg/dL Estimated GFR 63.3 ML/MIN Glucose 93 (74-106) mg/dL Lactic Acid (0.4-2.0) Calcium 11.0 H (8.4-10.2) mg/dL Magnesium 2.1 (1.6-2.3) mg/dL Total Bilirubin 0.90 (0.2-1.3) mg/dL AST 51 H (14-36) U/L ALT 19 (0-35) U/L Alkaline Phosphatase 75 (38-126) U/L Troponin I 1.990 H* (0.000-0.034) ng/mL NT-Pro-B Natriuret Pep > 90164 (<300) pg/mL Serum Total Protein 7.0 (6.3-8.2) g/dL Albumin 4.0 (3.5-5.0) g/dL Influenza Type A Ag NEGATIVE (NEGATIVE) Influenza Type B Ag NEGATIVE (NEGATIVE) RSV (PCR) NEGATIVE (NEGATIVE) SARS-CoV-2 (PCR) NEGATIVE (NEGATIVE) 08/20/23 08/20/23 Range/Units 00:33 00:27 WBC 23.8 H (4.0-10.5) x10^3/uL RBC 3.97 L (4.1-5.4) x10^6/uL Hgb 11.8 L (12.0-16.0) g/dL Hct 39.3 (35-47) % MCV 99.0 (78-100) fL MCH 29.7 (26-32) pg MCHC 30.0 L (32-36) g/dL RDW 13.9 (11.5-14.0) % Plt Count 303 (150-450) x10^3/uL MPV 10.3 (7.5-11.0) fL Segmented Neutrophils 53 (36.0-66.0) % Band Neutrophils 25 H (0.0-2.0) % Lymphocytes (Manual) 16 L (24-44) % Monocytes (Manual) 6 (0.0-12.0) % Platelet Estimate NORMAL (NORMAL) RBC Morphology NORMAL Polychromasia 1+ Sodium (137-145) mmol/L Potassium (3.5-5.1) mmol/L Chloride (98-107) mmol/L Carbon Dioxide (22-30) mmol/L Anion Gap (5-15) MEQ/L BUN (7-17) mg/dL Creatinine (0.52-1.04) mg/dL Estimated GFR ML/MIN Glucose (74-106) mg/dL Lactic Acid 4.8 H (0.4-2.0) Calcium (8.4-10.2) mg/dL Magnesium (1.6-2.3) mg/dL Total Bilirubin (0.2-1.3) mg/dL AST (14-36) U/L ALT (0-35) U/L Alkaline Phosphatase (38-126) U/L Troponin I (0.000-0.034) ng/mL NT-Pro-B Natriuret Pep (<300) pg/mL Serum Total Protein (6.3-8.2) g/dL Albumin (3.5-5.0) g/dL Influenza Type A Ag (NEGATIVE) Influenza Type B Ag (NEGATIVE) RSV (PCR) (NEGATIVE) SARS-CoV-2 (PCR) (NEGATIVE) - Progress Progress: improved, re-examined Air Movement: fair Progress Note: 08/20/23 01:29 78-year-old with multiple comorbid's including COPD with chronic respiratory failure on 2 L oxygen normally, atrial fibrillation on Eliquis, CABG is ev aluated for increasing cough and shortness of breath. Patient was getting hypoxic despite increasing her oxygen to 3 L. She was in upper 80s, placed on 5 L oxygen and it improved to low 90s. She is given breathing treatment and steroids. Workup showed chest x-ray reviewed by me with right-sided new infiltrative process/consolidation and started on antibiotics Rocephin and Zithromax. Patient has a white count of 23, lactate of 4.8 with initial troponin of 1.99. Patient has no chest pain and EKG is atrial fibrillation with rate control and no ST elevations. Patient has history of CHF and BNP in 30,000's, started on gentle hydration, we will not give the full sepsis bolus. Clinically patient does not seem to be in CHF exacerbation currently. Elevated troponin could be demand ischemia related, will continue to monitor it. Has mildly elevated potassium but I believe with giving fluids and holding potassium sparing medication will improve it. Do not think she needs hyperkalemia me dications. I have discussed with , reviewed history, workup and current management, agreed with admission. I have discussed the results of workup with patient and son and plan of admission which they understand and agree. Blood Culture(s) Obtained: Yes Antibiotics given: Yes Discussed with : Derrick Will see patient in: hospital (observation) Counseled pt/family regarding: lab results, diagnosis, need for follow-up, rad results, smoking cessation Medical Desision Making - Independent Historian Additional History obtained from: Child - Discussion of managment Care discussed with:: hospitalist Reviewed:: Test results Agreed on:: Treatment plan, place in obs Will see patient: in hospital - Diagnostic Testing Diagnostic test were ordered, analyzed, and reviewed by me: Yes Radiological Interpretation: Interpreted by me, Reviewed by me - Risk of complications The pt has a high risk of morbidity or mortality based on: Decision regarding hospitilization or escalation of hosp level of care - Departure Departure Disposition: Observation Clinical Impression: Pneumonia, NSTEMI (non-ST elevated myocardial infarction), Sepsis Respiratory failure Qualifiers: Chronicity: acute on chronic Respiratory failure complication: hypoxia Qualified Code(s): J96.21 - Acute and chronic respiratory failure with hypoxia Condition: Fair Critical Care Time: No
[2023-08-20 00:47] LABS: ANION GAP 18.7 MEQ/L (5-15); BILIRUBIN,TOTAL 0.9 mg/dL (0.2-1.3); Creatinine 1 0.93 mg/dL (0.52-1.04); EST GLOMERULAR FILTRATION RATE 63.3 ML/MIN; MAGNESIUM 2.1 mg/dL (1.6-2.3); Potassium 5.2 mmol/L (3.5-5.1)
[2023-08-20 00:59] LABS: NT PRO BNPII > 30000 pg/mL (<300)
[2023-08-20] MEDS ORDERED: ROCEPHIN 1 GM / 100 ML NaCl 1 GM/100 ML IVPB IV ONE (01:04)
[2023-08-20] MEDS: ROCEPHIN 1 GM / 100 ML NaCl 1 GM/100 ML IVPB IV ONE (01:08)
[2023-08-20 01:32] LABS: INFLUENZA A NEGATIVE (NEGATIVE); INFLUENZA B NEGATIVE (NEGATIVE); RESPIRATORY SYNCTIAL VIRUS NEGATIVE (NEGATIVE); SARS-CoV-2 Xpert Express NEGATIVE (NEGATIVE)
[2023-08-20] MEDS ORDERED: Sodium Chloride 0.9% 500 ML 500 ML IV ONE (01:42)
[2023-08-20] MEDS ORDERED: Zithromax 500 MG/ 250 ML NaCl Premix 500 MG/250 ML IVPB IV ONE (01:42)
[2023-08-20] MEDS: Sodium Chloride 0.9% 500 ML 500 ML IV ONE ×2 (01:53→07:47)
[2023-08-20] MEDS: Zithromax 500 MG/ 250 ML NaCl Premix 500 MG/250 ML IVPB IV STA (01:54)
[2023-08-20] MEDS ORDERED: Zofran 4 MG/2 ML VIAL IV PRN (02:04)
--- NOTE | 2023-08-20 02:23 | PCM.HP ---
History of Present Illness - Chief Complaint Chief Complaint: SOB History of Present Illness: is a 78 year old female with hx of dementia, CHF, AFib on Eliquis, COPD with chronic respiratory failure on 2 Ls NC home, HTN came in with c/o worsening SOB since 10am the day prior. She bumped her O2 up to 3Ls but O2 sat still < 90%. Here, she is on 5Ls and O2 sat improved to 92%. She was found to have infiltrate on CXR and admitted for pneumonia. I saw her via telemedicine. She is resting, and doing better on 4Ls NC O2 with 92% - Review of Systems Constitutional: Fatigue Eyes: No Symptoms Ears, Nose, & Throat: No Symptoms Respiratory: Cough, Short Of Breath, Wheezing Cardiac: Orthopnea Abdominal/Gastrointestinal: No Symptoms Genitourinary Symptoms: No Symptoms Musculoskeletal: No Symptoms Skin: No Symptoms Neurological: No Symptoms Psychological: No Symptoms Endocrine: No Symptoms Hematologic/Lymphatic: No Symptoms Immunological/Allergic: No Symptoms Medications & Allergies Home Medications: Home Medication List Digoxin 0.125 mg Tablet [Lanoxin 0.125MG TABLET] 0.0625 mg PO DAILY 03/25/13 [History Confirmed 08/20/23] Furosemide 20 mg [Lasix 20 mg] 20 mg PO DAILY 03/25/13 [History Confirmed 08/20/23] Potassium Chloride 20 Meq Tab [Potassium Chloride 20 MEQ TABLET] 20 meq PO BID 03/25/13 [History Confirmed 08/20/23] Calcium Carbonate/Vitamin D3 [Calcium 500-Vit D3 125 Caplet] 1 each PO BID 03/21/15 [History Confirmed 08/20/23] Losartan Potassium 50 mg [Cozaar 50 MG] 50 mg PO BID 03/21/15 [History Confirmed 08/20/23] Pravastatin Sodium 40 mg PO QHS 03/21/15 [History Confirmed 08/20/23] Apixaban [Eliquis 5 mg Tablet] 5 mg PO BID 01/14/22 [History Confirmed 08/20/23] Aspirin 81 gm Chew [Baby Aspirin 81 mg Chew] 81 mg PO DAILY 01/19/22 [History Confirmed 08/20/23] Donepezil HCl [Aricept] 5 mg PO HS 06/22/23 [History Confirmed 08/20/23] Escitalopram Oxalate [Lexapro] 10 mg PO HS 06/22/23 [History Confirmed 08/20/23] Ipratropium/Albuterol Sulfate [Iprat-Albut 0.5-3(2.5) mg/3 ml] 1 neb IN QID 06/22/23 [History Confirmed 08/20/23] Iron 365 mg PO DAILY 06/22/23 [History Confirmed 08/20/23] Melatonin 5 mg PO HS 06/22/23 [History Confirmed 08/20/23] Mv-Min/Iron/Folic/Calcium/Vitk [Women's Multivitamin Tablet] 1 tab PO DAILY 10/10 [History Confirmed 08/20/23] Metoprolol Succinate 50 mg [Toprol Xl 50 MG] 50 mg PO BID 08/20/23 [History Confirmed 08/20/23] Allergies/Adverse Reactions: Allergies Allergy/AdvReac Type Severity Reaction Status Date / Time propofol AdvReac Severe Verified 08/20/23 00:17 amiodarone AdvReac Unknown Verified 08/20/23 00:17 - Past Medical History Past Medical History: Yes Neurological History: Dementia ENT History: No Pertinent History Cardiac History: Congestive Heart Failure, Coronary Artery Disease, Hypertension Respiratory History: COPD Endocrine Medical History: No Pertinent History Musculoskelatal History: No Pertinent History GI Medical History: No Pertinent History History: Bladder Cancer Pyscho-Social History: Anxiety Reproductive Disorders: No Pertinent History Comment: hx of UTIs - Past Surgical History Past Surgical History: Yes (CABG) Neuro Surgical History: No Pertinent History Cardiac History: CABG Respiratory Surgery: No Pertinent History GI Surgical History: No Pertinent History Genitourinary Surgical Hx: Other Musculskeletal Surgical Hx: No Pertinent History Female Surgical History: No Pertinent History Other Surgical History: tonsils as a child Significant Family History: no pertinent family hx - Social History Smoking Status: Current every day smoker How long have you smoked: 65 yrs Exposure to second hand smoke: Yes Alcohol: None Drug Use: none - Social Determinants of Health Will the patient participate in the screening: Unable to obtain - Physical Exam Vital Signs: Vital Signs - 24 hr Temp Pulse Resp BP BP Pulse Ox 08/20/23 02:00 87 18 108/64 93 L 08/20/23 01:37 92 L 08/20/23 01:30 77 20 97/61 08/20/23 01:00 86 22 113/75 91 L 08/20/23 00:30 80 20 120/80 90 L 08/20/23 00:08 94 H 26 H 92 L 08/20/23 00:03 24 92 L 08/20/23 00:01 97.6 F 87 22 150/89 90 L General Appearance: mild distress, alert, anxiety Neurologic Exam: alert, oriented x 3, cooperative Eye Exam: PERRL/EOMI, eyes nml inspection Ears, Nose, Throat Exam: normal ENT inspection Neck Exam: normal inspection Respiratory Exam: respiratory distress, diminished breath sounds, wheezing Cardiovascular Exam: regular rate/rhythm, normal heart sounds Gastrointestinal/Abdomen Exam: soft, normal bowel sounds Pelvic Exam: deferred Rectal Exam: deferred Back Exam: normal inspection Extremity Exam: normal inspection Skin Exam: normal color Results - Labs Lab/Micro Results: Lab Results-Last 24 Hours 08/20/23 08/20/23 08/20/23 Range/Units 00:27 00:33 00:33 WBC 23.8 H (4.0-10.5) x10^3/uL RBC 3.97 L (4.1-5.4) x10^6/uL Hgb 11.8 L (12.0-16.0) g/dL Hct 39.3 (35-47) % MCV 99.0 (78-100) fL MCH 29.7 (26-32) pg MCHC 30.0 L (32-36) g/dL RDW 13.9 (11.5-14.0) % Plt Count 303 (150-450) x10^3/uL MPV 10.3 (7.5-11.0) fL Sodium 139 (137-145) mmol/L Potassium 5.2 H (3.5-5.1) mmol/L Chloride 100 (98-107) mmol/L Carbon Dioxide 26 (22-30) mmol/L Anion Gap 18.7 H (5-15) MEQ/L BUN 37 H (7-17) mg/dL Creatinine 0.93 (0.52-1.04) mg/dL Estimated GFR 63.3 ML/MIN Glucose 93 (74-106) mg/dL Lactic Acid 4.8 H (0.4-2.0) Calcium 11.0 H (8.4-10.2) mg/dL Magnesium 2.1 (1.6-2.3) mg/dL Total Bilirubin 0.90 (0.2-1.3) mg/dL AST 51 H (14-36) U/L ALT 19 (0-35) U/L Alkaline Phosphatase 75 (38-126) U/L Troponin I (0.000-0.034) ng/mL NT-Pro-B Natriuret Pep (<300) pg/mL Serum Total Protein 7.0 (6.3-8.2) g/dL Albumin 4.0 (3.5-5.0) g/dL Influenza Type A Ag (NEGATIVE) Influenza Type B Ag (NEGATIVE) RSV (PCR) (NEGATIVE) SARS-CoV-2 (PCR) (NEGATIVE) 08/20/23 08/20/23 Range/Units 00:33 00:53 WBC (4.0-10.5) x10^3/uL RBC (4.1-5.4) x10^6/uL Hgb (12.0-16.0) g/dL Hct (35-47) % MCV (78-100) fL MCH (26-32) pg MCHC (32-36) g/dL RDW (11.5-14.0) % Plt Count (150-450) x10^3/uL MPV (7.5-11.0) fL Sodium (137-145) mmol/L Potassium (3.5-5.1) mmol/L Chloride (98-107) mmol/L Carbon Dioxide (22-30) mmol/L Anion Gap (5-15) MEQ/L BUN (7-17) mg/dL Creatinine (0.52-1.04) mg/dL Estimated GFR ML/MIN Glucose (74-106) mg/dL Lactic Acid (0.4-2.0) Calcium (8.4-10.2) mg/dL Magnesium (1.6-2.3) mg/dL Total Bilirubin (0.2-1.3) mg/dL AST (14-36) U/L ALT (0-35) U/L Alkaline Phosphatase (38-126) U/L Troponin I 1.990 H* (0.000-0.034) ng/mL NT-Pro-B Natriuret Pep > 74675 (<300) pg/mL Serum Total Protein (6.3-8.2) g/dL Albumin (3.5-5.0) g/dL Influenza Type A Ag NEGATIVE (NEGATIVE) Influenza Type B Ag NEGATIVE (NEGATIVE) RSV (PCR) NEGATIVE (NEGATIVE) SARS-CoV-2 (PCR) NEGATIVE (NEGATIVE) Microbiology 08/20/23 00:28 Blood Culture Gram Stain - Final Blood Not Reportable - Radiology Impressions Radiology Exams & Impressions: Radiology Procedures Category Date Time Status CHEST 1 VIEW (PORTABLE) Stat Exams 08/20/23 00:13 Taken - Other Procedures and Tests Respiratory Therapy 08/20/23 00:06 Respiratory Therapy Assessment DAILY 08/20/23 02:04 Oxygen Nasal Cannula 2 lpm 08/20/23 02:13 Oxygen Nasal Cannula 4 lpm Respiratory Therapy Consult ONCE Assessment/Plan (1) Acute and chronic respiratory failure ([id number]) Current Visit: Yes Status: Acute Assessment & Plan: Due to PNA. She is normally on 2Ls at home. Now at 5Ls. Treating PNA. Updrafts as needed. O2 protocol, wean down as tolerated. Has COPD. Solu-medrol for exacerbation. Flu and covid both negative Code(s): J96.20 - ACUTE AND CHR RESP FAILURE, UNSP W HYPOXIA OR HYPERCAPNIA (2) Pneumonia Current Visit: Yes Status: Acute Qualifiers: Assessment & Plan: LLL pneumonia: rocephin and azithromycin. Sputum and blood cultures sent. WBC elevated, lactic acid 4s. Sepsis - but unable to give aggressive IVF due to hx of CHF, and currently overloaded CXR also shows a right mid lobe mass - this is known to her and her doctors have been monitoring this. Code(s): J18.9 - PNEUMONIA, UNSPECIFIED ORGANISM (3) Sepsis Current Visit: Yes Status: Acute Assessment & Plan: BP is stable. WBC elevated at 23, Lactic acid at 4s. Has LLL infilitrate. HR and RR are both ok. Unable to give aggressive IVF due to concern for fluid overload as well (4) Hyperkalemia Current Visit: Yes Status: Acute Assessment & Plan: K is 5.2 - she is on losartan and KCl at home. Holding both of these for now. Continuing Lasix, and this will help Code(s): E87.5 - HYPERKALEMIA (5) NSTEMI (non-ST elevated myocardial infarction) Current Visit: Yes Status: Acute Assessment & Plan: Trops mildly elevated at 1.99, she is in AFib, HR controlled. Will trend. Likely demand ischemia. She denies chest pain She has CAD s/p CABG. The inferior end of the sternotomy scar has a knot/bump, and it appears a wire tip is poking through. She noticed this a week ot so ago. No pus, drainange. No fever or chills. She will need to have this looked at by her real estate photographer soon Code(s): I21.4 - NON-ST ELEVATION (NSTEMI) MYOCARDIAL INFARCTION (6) Atrial fibrillation with RVR Current Visit: No Status: Chronic Assessment & Plan: Resume Eliquis. HR is controlled. Code(s): I48.91 - UNSPECIFIED ATRIAL FIBRILLATION (7) CHF (congestive heart failure) Current Visit: No Status: Chronic Assessment & Plan: BNP > 99080. Trops 1.99. Trending trops. Resume home Lasix 20mg daily Code(s): I50.9 - HEART FAILURE, UNSPECIFIED (8) HTN (hypertension) Current Visit: No Status: Chronic Assessment & Plan: BP controlled. Holding Losartan due to high K Code(s): I10 - ESSENTIAL (PRIMARY) HYPERTENSION Telemedicine Encounter - Telemedicine Encounter Telemedicine Encounter: The entirety of this encounter was performed via Telemedicine" The pt gave verbal consent to have this telemedicine visit
[2023-08-20 03:11] LABS: BAND 25 % (0.0-2.0); Lymphocytes 16 % (24-44); Monocyte 6 % (0.0-12.0); Neutrophils 53 % (36.0-66.0); Platelet Estimate NORMAL (NORMAL); Polychromasia 1+; Total Cells Counted 100
[2023-08-20 04:27] LABS: Hematocrit 32.7 % (35-47); Hemoglobin 10.3 g/dL (12.0-16.0); Mean Cell Volume 95.9 fL (78-100); Mean Corpuscular Hemoglobin 30.2 pg (26-32); Mean Corpuscular Hgb Concent. 31.5 g/dL (32-36); Mean Platelet Volume 10.1 fL (7.5-11.0); Platelet Count 251 x10^3/uL (150-450); Red Blood Count 3.41 x10^6/uL (4.1-5.4); Red Cell Distribution Width 14.1 % (11.5-14.0); White Blood Count 19.3 x10^3/uL (4.0-10.5)
[2023-08-20] MEDS: ROCEPHIN 1 GM / 100 ML NaCl 1 GM/100 ML IVPB IV SCH ×2 (04:39→21:35)
[2023-08-20 05:05] LABS: ANION GAP 11.7 MEQ/L (5-15); Calcium 10.1 mg/dL (8.4-10.2); Creatinine 1 0.88 mg/dL (0.52-1.04); EST GLOMERULAR FILTRATION RATE 67.6 ML/MIN; Potassium 5.6 mmol/L (3.5-5.1)
[2023-08-20] MEDS: DUONEB 0.5-3 MG/3 ml Neb IH SCH (06:46)
--- NOTE | 2023-08-20 08:34 | XRAY ---
Indication: Short of breath. Comparison: June 22, 2023 Portable chest demonstrates new right upper lobe consolidating/nonconsolidating airspace disease. Stable COPD, CT proven right lower lobe irregular noncalcified nodule, and scattered fibrosis/scarring. Heart enlarged again with CABG. Bony thorax intact again with osteopenia and degenerative changes.
[2023-08-20] MEDS: ECOTRIN 81 MG PO SCH (09:46)
[2023-08-20] MEDS: ELIQUIS 2.5 MG TABLET PO SCH (09:46)
[2023-08-20] MEDS: Calcium 500MG W/Vit D Tablet PO SCH (09:46)
[2023-08-20] MEDS: FEOSOL 325 MG PO SCH (09:47)
[2023-08-20] MEDS: Toprol Xl 50 MG PO SCH (09:47)
[2023-08-20] MEDS: THERAGRAN MULTIVITAMIN PO SCH (09:47)
[2023-08-20] MEDS: Lanoxin 0.125MG TABLET PO SCH (09:47)
[2023-08-20] MEDS: Lasix 20 MG/2 ML IV SCH (09:47)
[2023-08-20] MEDS: VELTASSA PO SCH (09:49)
[2023-08-20] MEDS ORDERED: BABY ASPIRIN 81 MG CHEW PO SCH (10:00)
[2023-08-20] MEDS ORDERED: NON-FORMULARY ITEM (Iron [Iron] 18 MG Tablet) PO SCH (10:00)
[2023-08-20] MEDS ORDERED: [UNRECOGNIZED DRUG - OTHER] PO SCH (10:00)
[2023-08-20] MEDS ORDERED: CALCIUM PO SCH (10:00)
[2023-08-20] MEDS ORDERED: MV MIN PO SCH (10:00)
[2023-08-20] MEDS ORDERED: IRON PO SCH (10:00)
[2023-08-20] MEDS ORDERED: CALCIUM CARBONATE PO SCH (10:00)
[2023-08-20] MEDS ORDERED: FOLIC PO SCH (10:00)
[2023-08-20] MEDS ORDERED: VITK PO SCH (10:00)
[2023-08-20] MEDS ORDERED: NON-FORMULARY ITEM (Apixaban*** [Eliquis 5 Mg Tablet***] 5 MG Tablet) PO SCH (10:00)
[2023-08-20] MEDS ORDERED: [UNRECOGNIZED DRUG - OTHER] PO SCH (10:00)
[2023-08-20] MEDS ORDERED: VITAMIN D3 PO SCH (10:00)
[2023-08-20] MEDS ORDERED: LASIX 20 MG PO SCH (10:00)
[2023-08-20] MEDS ORDERED: Docusate Sodium 100 MG PO PRN (10:17)
[2023-08-20] MEDS: solu-MEDROL 20 MG, Sterile H2O 10 ml 1 ML IV SCH (12:56)
[2023-08-20] MEDS ORDERED: Sodium Chloride 3 ML UD NEBULES IH ONE (12:57)
[2023-08-20] MEDS ORDERED: Xopenex 1.25 MG/0.5 ML UD NEBULE IH SCH (13:00)
[2023-08-20] MEDS: Xopenex 1.25 MG/0.5 ML UD NEBULE IH SCH (13:01)
[2023-08-20] MEDS: Sodium Chloride 3 ML UD NEBULES IH SCH (13:01)
[2023-08-20] MEDS: BENADRYL 50 MG/ML IV PRN (13:06)
[2023-08-20] MEDS: Aricept 10 MG PO SCH (21:35)
[2023-08-20] MEDS: Lexapro PO SCH (21:36)
[2023-08-20] MEDS: MELATONIN PO SCH (21:36)
[2023-08-20] MEDS: ZOCOR 20MG PO SCH (21:36)
[2023-08-20] MEDS ORDERED: NON-FORMULARY ITEM (Donepezil Hcl [Aricept] 5 MG Tablet) PO SCH (22:00)
[2023-08-20] MEDS ORDERED: NON-FORMULARY ITEM (Melatonin [Melatonin] 5 MG Tablet) PO SCH (22:00)
[2023-08-20] MEDS ORDERED: NON-FORMULARY ITEM (Escitalopram Oxalate [Lexapro] 5 MG Tablet) PO SCH (22:00)
[2023-08-20] MEDS ORDERED: NON-FORMULARY ITEM (Pravastatin Sodium [Pravastatin Sodium] 40 MG Tablet) PO SCH (22:00)
[2023-08-20] MEDS: Zithromax 500 MG/ 250 ML NaCl Premix 500 MG/250 ML IVPB IV SCH (22:13)
[2023-08-21 04:40] LABS: Hematocrit 29.9 % (35-47); Hemoglobin 9.2 g/dL (12.0-16.0); Mean Cell Volume 96.5 fL (78-100); Mean Corpuscular Hemoglobin 29.7 pg (26-32); Mean Corpuscular Hgb Concent. 30.8 g/dL (32-36); Mean Platelet Volume 10.3 fL (7.5-11.0); Platelet Count 249 x10^3/uL (150-450); Red Cell Distribution Width 14.2 % (11.5-14.0); White Blood Count 18.7 x10^3/uL (4.0-10.5)
[2023-08-21 04:48] LABS: ALBUMIN 3.1 g/dL (3.5-5.0); ANION GAP 10.9 MEQ/L (5-15); BILIRUBIN,TOTAL 0.2 mg/dL (0.2-1.3); Calcium 10.2 mg/dL (8.4-10.2); Creatinine 1 0.86 mg/dL (0.52-1.04); EST GLOMERULAR FILTRATION RATE 69.5 ML/MIN; Potassium 3.9 mmol/L (3.5-5.1); Total Protein 5.9 g/dL (6.3-8.2)
--- NOTE | 2023-08-21 05:10 | PCM.NOTE ---
Date and Time: 08/21/23 0501 Subjective Assessment: HPI: Ms. Brown is a 78 year old female with a pmhx of dementia, CHF, CAD, HTN, COPD (baseline oxygen 2L at QHS and prn), and bladder cancer who presented to ED 08/20/23 with complaints of a four day history of shortness of breath and productive cough . Oxygen saturation on arrival was 86-87% on 3L. CXR demon strating RUL consolidating/noncolidating airspace disease. Of note patient does have RLL known calcified nodule re-identified on this exam. Initial Lab findings remarkable for leukocytosis with WBC at 19.3, hgb at 10.3, hyperkalemia at 5.6, BNP >44051, downtrending tropinin I at 0.840<1.220<1.990. Respiratory panel negative. Patient admitted for Acute on chronic respiratory failure/Sepsis secondary to pneumonia and NSTEMI. Patient started on ceftriaxone/azithromycin/solu-medrol/Lasix. Currently requiring 3L of oxygen with noted improvement of oxygen saturation 96%. 08/21/23: Met with patient bedside. No overnight events noted. Endorses continued shortness of breath and productive cough with yellow sputum. Shortness of breath is mostly on exertion. Cough has become less productive and she feels it is getting "stuck in my lungs." Lung sounds with fine crackles bilaterally on auscultation. Discussed lab findings showing mild improvement of leukocytosis with WBC at 18.7. Blood culture x 1 is positive for gram + cocci in chains. Oxygen has been titrated down to 3L. Plan to continue IV abx. Will order echo as well. - Review of Systems Constitutional: Weakness Eyes: No Symptoms Ears, Nose, & Throat: No Symptoms Respiratory: Cough, Short Of Breath Cardiac: No Symptoms Abdominal/Gastrointestinal: No Symptoms Genitourinary Symptoms: No Symptoms Musculoskeletal: No Symptoms Skin: No Symptoms Neurological: No Symptoms Psychological: No Symptoms Endocrine: No Symptoms Hematologic/Lymphatic: Anemia Immunological/Allergic: No Symptoms Objective Exam General Appearance: no apparent distress Neurologic Exam: alert, oriented x 3, cooperative Skin Exam: normal color Eye Exam: PERRL Ears, Nose, Throat Exam: normal ENT inspection Neck Exam: normal inspection Respiratory Exam: crackles/rales (bilateral) Cardiovascular Exam: tachycardia Gastrointestinal/Abdomen Exam: soft, normal bowel sounds Extremity Exam: normal inspection Back Exam: normal inspection Pelvic Exam: deferred Rectal Exam: deferred OBJECTIVE DATA Vital Signs: Vital Signs - 24 hr Temp Pulse Resp BP Pulse Ox 08/21/23 04:00 97.7 F 97 H 23 126/83 95 08/21/23 00:36 94 H 22 92 L 08/21/23 00:00 98.3 F 86 25 H 115/75 92 L 08/20/23 21:27 92 L 08/20/23 20:00 99.1 F 100 H 29 H 113/60 92 L 08/20/23 19:04 100 H 27 H 92 L 08/20/23 16:00 122 H 133/66 92 L 08/20/23 15:35 92 L 08/20/23 13:05 90 22 96 08/20/23 12:00 98.1 F 100 H 20 144/77 95 08/20/23 08:00 98.7 F 101 H 128/71 94 L 08/20/23 06:53 86 24 92 L Pain Assessment - Last Documented Pain Intensity 0 Intake and Output: Intake & Output 08/18/23 08/19/23 08/20/23 08/21/23 11:59 11:59 11:59 11:59 Intake Total 240 Balance 240 Weight 37.6 kg Lab Results: Lab Results-Last 24 Hours 08/20/23 08/20/23 08/20/23 Range/Units 04:24 04:24 07:33 WBC (4.0-10.5) x10^3/uL RBC (4.1-5.4) x10^6/uL Hgb (12.0-16.0) g/dL Hct (35-47) % MCV (78-100) fL MCH (26-32) pg MCHC (32-36) g/dL RDW (11.5-14.0) % Plt Count (150-450) x10^3/uL MPV (7.5-11.0) fL Sodium 137 (137-145) mmol/L Potassium 5.6 H (3.5-5.1) mmol/L Chloride 104 (98-107) mmol/L Carbon Dioxide 26 (22-30) mmol/L Anion Gap 11.7 (5-15) MEQ/L BUN 35 H (7-17) mg/dL Creatinine 0.88 (0.52-1.04) mg/dL Estimated GFR 67.6 ML/MIN Glucose 81 (74-106) mg/dL Lactic Acid 2.7 H (0.4-2.0) Calcium 10.1 (8.4-10.2) mg/dL Troponin I 1.220 H* (0.000-0.034) ng/mL 08/20/23 08/20/23 08/21/23 Range/Units 08:40 09:46 04:39 WBC 18.7 H (4.0-10.5) x10^3/uL RBC 3.10 L (4.1-5.4) x10^6/uL Hgb 9.2 L (12.0-16.0) g/dL Hct 29.9 L (35-47) % MCV 96.5 (78-100) fL MCH 29.7 (26-32) pg MCHC 30.8 L (32-36) g/dL RDW 14.2 H (11.5-14.0) % Plt Count 249 (150-450) x10^3/uL MPV 10.3 (7.5-11.0) fL Sodium (137-145) mmol/L Potassium (3.5-5.1) mmol/L Chloride (98-107) mmol/L Carbon Dioxide (22-30) mmol/L Anion Gap (5-15) MEQ/L BUN (7-17) mg/dL Creatinine (0.52-1.04) mg/dL Estimated GFR ML/MIN Glucose (74-106) mg/dL Lactic Acid 2.0 (0.4-2.0) Calcium (8.4-10.2) mg/dL Troponin I 0.840 H* (0.000-0.034) ng/mL Radiology Exams: Radiology Procedures Category Date Time Status CHEST 1 VIEW (PORTABLE) Stat Exams 08/20/23 00:13 Completed Assessment/Plan (1) Sepsis Current Visit: Yes Status: Acute Assessment & Plan: -Sepsis criteria identified 08/20/23: 2/2 to pneumonia -Initial WBC at 23, trend 18.7<19.8 <23.8 -CXR demonstrating "consolidating/nonconsolidating airspace disease. Stable COPD, CT proven right lower lobe irregular noncalcified nodule, and scattered fibrosis/scarring.Heart enlarged again with CABG." -Fluid resuscitation contraindicated in the setting of CHF -BNP > 54274, will order echo -Blood cultures x2 ordered and pending, x1 positive for gram + cocci in chains -sputum culture -Antibiotics started 08/20/23 ceftriaxone/azithromycin, will continue -Lactate drawn, now wnl, trend 2.0<2.7<4.8 -Strict I&O with tele -PPI with protonix -Will admin vasopressors is hypotensive after IV admin (MAP <65 or SBP <90). (2) Pneumonia Current Visit: Yes Status: Acute Qualifiers: Assessment & Plan: -CXR demonstrating "consolidating/nonconsolidating airspace disease. Stable COPD, CT proven right lower lobe irregular noncalcified nodule, and scattered fibrosis/scarring. Heart enlarged again with CABG." -Supplemental oxygen with spo2 goal > 92% -Titrated to 3L with spo2 at 96%, will continue to titrate, baseline is 2L QHS and PRN at home -Ceftriaxone/azith started in ED, will continue -sputum culture -Respiratory panel negative -Solumedrol with titration as appropriate -Consider pulm consult/repeat cxr/ct if no improvement Code(s): J18.9 - PNEUMONIA, UNSPECIFIED ORGANISM (3) Acute and chronic respiratory failure ([id number]) Current Visit: Yes Status: Acute Assessment & Plan: -2/2 to pneumonia/COPD exacerbation -Supplemental oxygen with spo2 goal > 92% -Treat underlying pneumonia with ceftriaxone/azithromycin -Solumedrol with titration as appropriate -DuoNebs/bronchodilators -Known RLL lung nodule, being worked up as OP Code(s): J96.20 - ACUTE AND CHR RESP FAILURE, UNSP W HYPOXIA OR HYPERCAPNIA (4) Hyperkalemia Current Visit: Yes Status: Acute Assessment & Plan: 08/19: -Losartan and potassium held, lasix continued -veltassa given 08/20/23 3: -Resolved, will continue to monitor renal/lytes daily -dc veltassa Code(s): E87.5 - HYPERKALEMIA (5) NSTEMI (non-ST elevated myocardial infarction) Current Visit: Yes Status: Acute Assessment & Plan: -Trops downtrending 0.840<1.220<1.990 -Most likely demand ischemia -optimize electrolytes with goal K>4, MG >2 -AFIB with controlled HR -Denies CP -She has CAD s/p CABG. The inferior end of the sternotomy scar has a knot/bump, and it appears a wire tip is poking through. She noticed this a week to so ago. No pus, drainage. No fever or chills. She will need to have this looked at by her tube worker soon. 08/20: -ECHO -repeat trop -hold cards consult, patient sees Dr. Matthew Code(s): I21.4 - NON-ST ELEVATION (NSTEMI) MYOCARDIAL INFARCTION (6) Smoker Current Visit: No Status: Acute Assessment & Plan: -nicotine patch -advised cessation Code(s): F17.200 - NICOTINE DEPENDENCE, UNSPECIFIED, UNCOMPLICATED (7) Atrial fibrillation with RVR Current Visit: No Status: Chronic Assessment & Plan: -HR controlled, on eliquis/metoprolol/digoxin, will continue Code(s): I48.91 - UNSPECIFIED ATRIAL FIBRILLATION (8) CHF (congestive heart failure) Current Visit: No Status: Chronic Assessment & Plan: -BNP elevated at >71204 in the setting of sepsis/pneumonia -Supplemental oxygen as appropriate -Monitor for fluid overload/strict I&O -Daily weights -Troponins downtrending 0.840<1.220<1.990 -No recent echo, will order Code(s): I50.9 - HEART FAILURE, UNSPECIFIED (9) HTN (hypertension) Current Visit: No Status: Chronic Assessment & Plan: -stable, holding losartan for now due to hyperkalemia Code(s): I10 - ESSENTIAL (PRIMARY) HYPERTENSION (10) Dementia Current Visit: Yes Status: Acute Assessment & Plan: -Continue home medications Aricept Code(s): F03.90 - UNSP DEMENTIA, UNSP SEVERITY, WITHOUT BEH/PSYCH/MOOD/ANX (11) Anemia Current Visit: Yes Status: Acute Assessment & Plan: -normocytic, HGB with noted downtrend 9.2<10.3, will continue to monitor and replace as appropriate Code(s): D64.9 - ANEMIA, UNSPECIFIED (12) COPD (chronic obstructive pulmonary disease) Current Visit: No Status: Acute Assessment & Plan: -see acute on chronic resp failure VTE: Eliquis PPI: Protonix Dispo 2-3 days
[2023-08-21] MEDS: TYLENOL 325 MG PO PRN (07:40)
[2023-08-21] MEDS: PROTONIX 40 MG IV IV SCH (07:42)
[2023-08-21] MEDS: Mucinex 600MG ER Tabs PO SCH (09:14)
[2023-08-21] MEDS ORDERED: Nicoderm CQ 21 MG TOP PRN (10:00)
--- NOTE | 2023-08-21 14:47 | ECHO ---
Transthoracic echocardiographic examination and color Doppler was done on 08/21/2023. INDICATION: Shortness of breath. IMPRESSION: 1) GLOBAL LEFT VENTRICULAR HYPOKINESIA. THE EJECTION FRACTION BETWEEN 40 TO 45%. 2) MODERATE TO SEVERE MITRAL REGURGITATION. 3) SEVERE TRICUSPID REGURGITATION. RIGHT VENTRICULAR SYSTOLIC PRESSURE OF 72 MM OF MERCURY. 4) MILD PULMONIC INSUFFICIENCY. 5) LEFT VENTRICULAR DIASTOLIC DYSFUNCTION. 6) SEVERELY DILATED LEFT ATRIUM. 7) MILDLY DILATED RIGHT ATRIUM. The left ventricle visualized and demonstrated left ventricular hypokinesia. Ejection fraction around 40 to 45%. The mitral valve is seen and this opens adequately. There is moderate to sever mitral regurgitation. Left atrium is severely dilated. The right side chambers are mildly dilated. The tricuspid valve is thickened. There severe tricuspid regurgitation. Right ventricular systolic pressure of 72 mm of Mercury suggestive of moderately severe pulmonary hypertension. The right atrium is severely dilated. There is also mild to moderate pulmonic insufficiency. Tissue Doppler study of the lateral mitral annulus suggestive of left ventricular diastolic dysfunction.
[2023-08-21 16:28] LABS: Appearance Clear (Clear); Bacteria None Seen /HPF (None Seen); Bilirubin Negative (Negative); Blood Negative (Negative); Epithelial Cells Rare /HPF (None Seen); Glucose, Urine Negative (Negative); Ketones Negative (Negative); Leukocyte Esterase Small (Negative); Nitrite Negative (Negative); Ph 5.5 (4.6-8.0); Protein,Urine Dip Negative (Negative); RBC 0-2 /HPF (0-5); Urobilinogen 0.2 mg/dL (0.2); WBC 0-2 /HPF (0-5)
[2023-08-21 16:29] LABS: ADD URINE CULTURE? NO (NO)
[2023-08-21] MEDS: Lopressor 50 MG PO ONE (18:44)
[2023-08-21] MEDS ORDERED: MAXIPIME 1 GM ONE (20:40)
[2023-08-21] MEDS ORDERED: D5w 100ML Mini Bag 100 ML 100 ML IV ONE (20:41)
[2023-08-21] MEDS: MAXIPIME 1 GM** 1 G in Dextrose 5%/Water IV Soln. 100ML PLUS BAG 100 ML IV SCH (21:03)
[2023-08-21] MEDS: Lopressor 50 MG PO SCH (21:03)
[2023-08-21] MEDS: VANCOMYCIN 1 GRAM/200 ML BAG 1 GM/200 ML PIGGYBACK IV ONE (21:49)
[2023-08-21] MEDS: PHARMACY DOSING REQUIRED: VANCOMYCIN IV STA (21:50)
[2023-08-22 04:34] LABS: Hematocrit 27.2 % (35-47); Hemoglobin 8.3 g/dL (12.0-16.0); Mean Cell Volume 96.5 fL (78-100); Mean Corpuscular Hemoglobin 29.4 pg (26-32); Mean Corpuscular Hgb Concent. 30.5 g/dL (32-36); Platelet Count 246 x10^3/uL (150-450); Red Blood Count 2.82 x10^6/uL (4.1-5.4); White Blood Count 13.9 x10^3/uL (4.0-10.5)
[2023-08-22 05:04] LABS: ANION GAP 10.1 MEQ/L (5-15); BILIRUBIN,TOTAL 0.3 mg/dL (0.2-1.3); Calcium 8.9 mg/dL (8.4-10.2); Creatinine 1 0.89 mg/dL (0.52-1.04); EST GLOMERULAR FILTRATION RATE 66.7 ML/MIN; MAGNESIUM 1.8 mg/dL (1.6-2.3); Potassium 3.5 mmol/L (3.5-5.1); Total Protein 5.6 g/dL (6.3-8.2)
--- NOTE | 2023-08-22 05:17 | PCM.NOTE ---
Date and Time: 08/22/23 0501 Subjective Assessment: HPI: Ms. Brown is a 78 year old female with a pmhx of dementia, CHF, CAD, HTN, COPD (baseline oxygen 2L at QHS and prn), and bladder cancer who presented to ED 08/20/23 with complaints of a four day history of shortness of breath and productive cough . Oxygen saturation on arrival was 86-87% on 3L. CXR demon strating RUL consolidating/noncolidating airspace disease. Of note patient does have RLL known calcified nodule re-identified on this exam. Initial Lab findings remarkable for leukocytosis with WBC at 19.3, hgb at 10.3, hyperkalemia at 5.6, BNP >97467, downtrending tropinin I at 0.840<1.220<1.990. Respiratory panel negative. Patient admitted for Acute on chronic respiratory failure/Sepsis secondary to pneumonia and NSTEMI. Patient started on ceftriaxone/azithromycin/solu-medrol/Lasix. ABX changed to vanc/cefepime. Currently requiring 3L of oxygen with noted improvement of oxygen saturation 96 %. 08/22/23: Met with patient bedside. Endorses continued shortness of breath and cough with yellow production. She does state she feels that she is breathing easier today, remains on 3L which we will try to titrate to baseline. Bilateral coarse crackles on auscultation. Discussed improvement in lab findings, WBC is trending down. Blood cultures x 1 positive for streptococcus pneumoniae,which is sen sitive to vanc. Patient did have recent history of strep pneumiae, therefore ceftriaxone replaced with cefepime. AFIB noted on tele, trops elevated, will increase metoprolol. - Review of Systems Constitutional: No Symptoms Eyes: No Symptoms Ears, Nose, & Throat: No Symptoms Respiratory: Cough, Short Of Breath Cardiac: No Symptoms Abdominal/Gastrointestinal: No Symptoms Genitourinary Symptoms: No Symptoms Musculoskeletal: No Symptoms Skin: No Symptoms Neurological: No Symptoms Psychological: No Symptoms Endocrine: No Symptoms Hematologic/Lymphatic: No Symptoms Immunological/Allergic: No Symptoms Objective Exam General Appearance: no apparent distress Neurologic Exam: alert, oriented x 3, cooperative Skin Exam: normal color Eye Exam: PERRL Ears, Nose, Throat Exam: normal ENT inspection Neck Exam: normal inspection Respiratory Exam: crackles/rales Cardiovascular Exam: tachycardia, irregular Gastrointestinal/Abdomen Exam: soft, normal bowel sounds Extremity Exam: normal inspection Back Exam: normal inspection Pelvic Exam: deferred Rectal Exam: deferred OBJECTIVE DATA Vital Signs: Vital Signs - 24 hr Temp Pulse Resp BP BP Pulse Ox 08/22/23 03:58 98.0 F 83 18 108/72 98 08/22/23 00:00 98.0 F 86 16 116/60 98 08/21/23 19:10 124 H 24 99 08/21/23 18:48 121 H 117/80 08/21/23 16:00 97.5 F 122 H 25 H 119/86 95 08/21/23 12:52 110 H 24 95 08/21/23 11:40 97.7 F 87 20 123/61 97 08/21/23 09:02 103 H 141/77 08/21/23 07:09 97.8 F 108 H 32 H 141/77 96 08/21/23 07:00 109 H 24 98 08/21/23 05:10 104 H 24 92 L Pain Assessment - Last Documented Pain Intensity 0 Intake and Output: Intake & Output 08/19/23 08/20/23 08/21/23 08/22/23 11:59 11:59 11:59 11:59 Intake Total 820 580 Output Total 500 200 Balance 320 380 Weight 37.6 kg 37.7 kg Lab Results: Lab Results-Last 24 Hours 08/21/23 08/21/23 08/21/23 Range/Units 04:39 04:39 04:39 WBC (4.0-10.5) x10^3/uL RBC (4.1-5.4) x10^6/uL Hgb (12.0-16.0) g/dL Hct (35-47) % MCV (78-100) fL MCH (26-32) pg MCHC (32-36) g/dL RDW (11.5-14.0) % Plt Count (150-450) x10^3/uL MPV (7.5-11.0) fL Sodium 140 (137-145) mmol/L Potassium 3.9 D (3.5-5.1) mmol/L Chloride 104 (98-107) mmol/L Carbon Dioxide 29 (22-30) mmol/L Anion Gap 10.9 (5-15) MEQ/L BUN 45 H (7-17) mg/dL Creatinine 0.86 (0.52-1.04) mg/dL Estimated GFR 69.5 ML/MIN Glucose 118 H (74-106) mg/dL Calcium 10.2 (8.4-10.2) mg/dL Total Bilirubin 0.20 (0.2-1.3) mg/dL AST 27 (14-36) U/L ALT 14 (0-35) U/L Alkaline Phosphatase 67 (38-126) U/L Troponin I (0.000-0.034) ng/mL NT-Pro-B Natriuret Pep 47074 (<300) pg/mL Serum Total Protein 5.9 L (6.3-8.2) g/dL Albumin 3.1 L (3.5-5.0) g/dL Urine Color (Yellow) Urine Appearance (Clear) Urine pH (4.6-8.0) Ur Specific [place] (1.005-1.030) Urine Protein (Negative) Urine Glucose (UA) (Negative) mg/dL Urine Ketones (Negative) Urine Blood (Negative) Urine Nitrite (Negative) Urine Bilirubin (Negative) Urine Urobilinogen (0.2) mg/dL Ur Leukocyte Esterase (Negative) U Hyaline Cast (Auto) (0-2) /LPF Urine Microscopic RBC (0-5) /HPF Urine Microscopic WBC (0-5) /HPF Ur Epithelial Cells (None Seen) /HPF Urine Bacteria (None Seen) /HPF Urine Culture Reflexed (NO) Digoxin < 0.4 L (0.8-1.9) ng/mL 08/21/23 08/21/23 08/22/23 Range/Units 09:12 16:09 04:29 WBC 13.9 H (4.0-10.5) x10^3/uL RBC 2.82 L (4.1-5.4) x10^6/uL Hgb 8.3 L (12.0-16.0) g/dL Hct 27.2 L (35-47) % MCV 96.5 (78-100) fL MCH 29.4 (26-32) pg MCHC 30.5 L (32-36) g/dL RDW 14.0 (11.5-14.0) % Plt Count 246 (150-450) x10^3/uL MPV 10.0 (7.5-11.0) fL Sodium (137-145) mmol/L Potassium (3.5-5.1) mmol/L Chloride (98-107) mmol/L Carbon Dioxide (22-30) mmol/L Anion Gap (5-15) MEQ/L BUN (7-17) mg/dL Creatinine (0.52-1.04) mg/dL Estimated GFR ML/MIN Glucose (74-106) mg/dL Calcium (8.4-10.2) mg/dL Total Bilirubin (0.2-1.3) mg/dL AST (14-36) U/L ALT (0-35) U/L Alkaline Phosphatase (38-126) U/L Troponin I 0.534 H* (0.000-0.034) ng/mL NT-Pro-B Natriuret Pep (<300) pg/mL Serum Total Protein (6.3-8.2) g/dL Albumin (3.5-5.0) g/dL Urine Color Yellow (Yellow) Urine Appearance Clear (Clear) Urine pH 5.5 (4.6-8.0) Ur Specific [place] 1.020 (1.005-1.030) Urine Protein Negative (Negative) Urine Glucose (UA) Negative (Negative) mg/dL Urine Ketones Negative (Negative) Urine Blood Negative (Negative) Urine Nitrite Negative (Negative) Urine Bilirubin Negative (Negative) Urine Urobilinogen 0.2 (0.2) mg/dL Ur Leukocyte Esterase Small A (Negative) U Hyaline Cast (Auto) 3-5 A (0-2) /LPF Urine Microscopic RBC 0-2 (0-5) /HPF Urine Microscopic WBC 0-2 (0-5) /HPF Ur Epithelial Cells Rare (None Seen) /HPF Urine Bacteria None Seen (None Seen) /HPF Urine Culture Reflexed NO (NO) Digoxin (0.8-1.9) ng/mL Radiology Exams: Radiology Procedures Category Date Time Status ECHO W/2D AND DOPPLER [US] Routine Exams 08/21/23 09:02 Draft Multi-Disciplinary Progress Notes: Multi-Disciplinary Progress Notes 08/21/23 21:41 Pharmacy Note by Katie Nesbitt one time vanc order entered per pharmacy orders. Initialized on 08/21/23 21:41 - END OF NOTE 08/21/23 17:53 Respiratory Note by Camelia Day I SPOKE WITH MANISHA RUANO, PATRICK REGARDING PT'S HEART RATE AND ABOUT CONTINUING THE BREATHING TREATMENTS. SHE WANTS US TO HOLD OFF ON THE BREATHING TREATMENTS FOR TONIGHT AND SEE HOW HER HEART RATE DOES. SHE WILL REASSES THE PT IN THE AM TO SEE ABOUT RESTARTING THE BREATHING TREATMENTS. THIS WILL BE PASSED ON TO THE VOICE STUDIES DIRECTOR RT. Initialized on 08/21/23 17:53 - END OF NOTE 08/21/23 10:12 Case Management Note by Vani Corrales [facility]. THEY WERE NOTIFIED PATIENT HERE. THEY WILL NEED NOTIFIED AT TIME OF DC AT [phone]. THEY WILL NEED FAXED DC SUMMARY, DC INSTRUCTIONS, DC MED LIST TO [phone] Initialized on 08/21/23 10:12 - END OF NOTE Assessment/Plan (1) Sepsis Current Visit: Yes Status: Acute Assessment & Plan: -Sepsis criteria identified 08/20/23: 2/2 to pneumonia -Initial WBC at 23, trend 18.7<19.8 <23.8 -CXR demonstrating "consolidating/nonconsolidating airspace disease. Stable COPD, CT proven right lower lobe irregular noncalcified nodule, and scattered fibrosis/scarring.Heart enlarged again with CABG." -Fluid resuscitation contraindicated in the setting of CHF -BNP > 28953, will order echo -Blood cultures x2 ordered and pending, x1 positive for gram + cocci in chains -sputum culture -Antibiotics started 08/20/23 ceftriaxone/azithromycin, will continue -Lactate drawn, now wnl, trend 2.0<2.7<4.8 -Strict I&O with tele -PPI with protonix -Will admin vasopressors is hypotensive after IV admin (MAP <65 or SBP <90). 08/22/23: -No longer meets criteria -IV abx changed to vanc/cefepime, will continue -HR/RR now wnl -WBC trending down 13.9<18.7<19.8<23.8 (2) Pneumonia Current Visit: Yes Status: Acute Qualifiers: Assessment & Plan: -CXR demonstrating "consolidating/nonconsolidating airspace disease. Stable COPD, CT proven right lower lobe irregular noncalcified nodule, and scattered fibrosis/scarring. Heart enlarged again with CABG." -Supplemental oxygen with spo2 goal > 92% -Titrated to 3L with spo2 at 96%, will continue to titrate, baseline is 2L QHS and PRN at home -Ceftriaxone/azith started in ED, will continue -sputum culture -Respiratory panel negative -Solumedrol with titration as appropriate -Consider pulm consult/repeat cxr/ct if no improvement 08/21: -IV abx changed to vanc/cefepime, will continue -Cultures positive for strep pneumo in cultures x 1, sent to [facility] for confirmation - sensitive to vanc, ceftriaxone changed to cefepime (recent infection with strep pneumo in the past year) other blood/sputum cultures pending Code(s): J18.9 - PNEUMONIA, UNSPECIFIED ORGANISM (3) Acute and chronic respiratory failure ([id number]) Current Visit: Yes Status: Acute Assessment & Plan: -2/ to pneumonia/COPD exacerbation -Supplemental oxygen with spo2 goal > 92% -Treat underlying pneumonia with ceftriaxone/azithromycin -Solumedrol with titration as appropriate -DuoNebs/bronchodilators -Known RLL lung nodule, being worked up as OP Code(s): J96.20 - ACUTE AND CHR RESP FAILURE, UNSP W HYPOXIA OR HYPERCAPNIA (4) Hyperkalemia Current Visit: Yes Status: Acute Assessment & Plan: 08/19: -Losartan and potassium held, lasix continued -veltassa given 08/20/2308/20: -Resolved, will continue to monitor renal/lytes daily -dc veltassa 08/21: -Resolved, resume losartan Code(s): E87.5 - HYPERKALEMIA (5) NSTEMI (non-ST elevated myocardial infarction) Current Visit: Yes Status: Acute Assessment & Plan: -Trops downtrending 0.840<1.220<1.990 -Most likely demand ischemia -optimize electrolytes with goal K>4, MG >2 -AFIB with controlled HR -Denies CP -She has CAD s/p CABG. The inferior end of the sternotomy scar has a knot/bump, and it appears a wire tip is poking through. She noticed this a week to so ago. No pus, drainage. No fever or chills. 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 08/20: -ECHO -repeat trop -hold cards consult, patient sees Dr. Matthew 08/21: -Echo from 08/21/23 Impression: -EF 40-45% 1) GLOBAL LEFT VENTRICULAR HYPOKINESIA. THE EJECTION FRACTION BETWEEN 40 TO 45%. 2) MODERATE TO SEVERE MITRAL REGURGITATION. 3) SEVERE TRICUSPID REGURGITATION. RIGHT VENTRICULAR SYSTOLIC PRESSURE OF 72 MM OF MERCURY. 4) MILD PULMONIC INSUFFICIENCY. 5) LEFT VENTRICULAR DIASTOLIC DYSFUNCTION. 6) SEVERELY DILATED LEFT ATRIUM. 7) MILDLY DILATED RIGHT ATRIUM. -EKG with AFIB and right axis deviation -Denies CP -Metoprolol increased to 100mg bid Code(s): I21.4 - NON-ST ELEVATION (NSTEMI) MYOCARDIAL INFARCTION (6) Smoker Current Visit: No Status: Acute Assessment & Plan: -nicotine patch -advised cessation Code(s): F17.200 - NICOTINE DEPENDENCE, UNSPECIFIED, UNCOMPLICATED (7) Atrial fibrillation with RVR Current Visit: No Status: Chronic Assessment & Plan: -HR controlled, on eliquis/metoprolol/digoxin, will continue 08/21: -HR in the 130's increase metoprolol to 100mg bid -Trop elevated at 3.080, will repeat Code(s): I48.91 - UNSPECIFIED ATRIAL FIBRILLATION (8) CHF (congestive heart failure) Current Visit: No Status: Chronic Assessment & Plan: -BNP elevated at >12214 in the setting of sepsis/pneumonia -Supplemental oxygen as appropriate -Monitor for fluid overload/strict I&O -Daily weights -Troponins downtrending 0.840<1.220<1.990 -No recent echo, will order 08/21: -Echo as stated above Code(s): I50.9 - HEART FAILURE, UNSPECIFIED (9) HTN (hypertension) Current Visit: No Status: Chronic Assessment & Plan: -stable Code(s): I10 - ESSENTIAL (PRIMARY) HYPERTENSION (10) Dementia Current Visit: Yes Status: Acute Assessment & Plan: -Continue home medications Aricept Code(s): F03.90 - UNSP DEMENTIA, UNSP SEVERITY, WITHOUT BEH/PSYCH/MOOD/ANX (11) Anemia Current Visit: Yes Status: Acute Assessment & Plan: -normocytic, HGB with noted downtrend 8.3<9.2<10.3, will continue to monitor and replace as appropriate Code(s): D64.9 - ANEMIA, UNSPECIFIED (12) COPD (chronic obstructive pulmonary disease) Current Visit: No Status: Acute Assessment & Plan: -see acute on chronic resp failure VTE: Eliquis PPI: Protonix DispoL 2-3 days (2) Pneumonia Current Visit: Yes Status: Acute Qualifiers: Code(s): J18.9 - PNEUMONIA, UNSPECIFIED ORGANISM (3) Acute and chronic respiratory failure ([id number]) Current Visit: Yes Status: Acute Code(s): J96.20 - ACUTE AND CHR RESP FAILURE, UNSP W HYPOXIA OR HYPERCAPNIA (4) Hyperkalemia Current Visit: Yes Status: Acute Code(s): E87.5 - HYPERKALEMIA (5) NSTEMI (non-ST elevated myocardial infarction) Current Visit: Yes Status: Acute Code(s): I21.4 - NON-ST ELEVATION (NSTEMI) MYOCARDIAL INFARCTION (6) Smoker Current Visit: No Status: Acute Code(s): F17.200 - NICOTINE DEPENDENCE, UNSPECIFIED, UNCOMPLICATED (7) Atrial fibrillation with RVR Current Visit: No Status: Chronic Code(s): I48.91 - UNSPECIFIED ATRIAL FIBRILLATION (8) CHF (congestive heart failure) Current Visit: No Status: Chronic Code(s): I50.9 - HEART FAILURE, UNSPECIFIED (9) HTN (hypertension) Current Visit: No Status: Chronic Code(s): I10 - ESSENTIAL (PRIMARY) HYPERTENSION (10) Dementia Current Visit: Yes Status: Acute Code(s): F03.90 - UNSP DEMENTIA, UNSP SEVERITY, WITHOUT BEH/PSYCH/MOOD/ANX (11) Anemia Current Visit: Yes Status: Acute Code(s): D64.9 - ANEMIA, UNSPECIFIED (12) COPD (chronic obstructive pulmonary disease) Current Visit: No Status: Acute
[2023-08-22] MEDS ORDERED: VANCOMYCIN HCL CAPSULE ONE (06:04)
[2023-08-22] MEDS: Cozaar 50 MG PO SCH (10:59)
[2023-08-22] MEDS: Lopressor 50 MG PO SCH (11:15)
[2023-08-22] MEDS ORDERED: Lopressor 50 MG PO ONE (18:30)
[2023-08-22] MEDS: VANCOCIN 500 MG VIAL*** 500 MG in Sodium Chloride 100ML MINI-BAG PLUS 100 ML IV SCH (20:57)
--- NOTE | 2023-08-23 05:07 | PCM.NOTE ---
Date and Time: 08/23/23 0503 Subjective Assessment: HPI: Ms. Brown is a 78 year old female with a pmhx of dementia, CHF, CAD, HTN, COPD (baseline oxygen 2L at QHS and prn), and bladder cancer who presented to ED 08/20/23 with complaints of a four day history of shortness of breath and productive cough . Oxygen saturation on arrival was 86-87% on 3L. CXR demon strating RUL consolidating/noncolidating airspace disease. Of note patient does have RLL known calcified nodule re-identified on this exam. Initial Lab findings remarkable for leukocytosis with WBC at 19.3, hgb at 10.3, hyperkalemia at 5.6, BNP >92067, downtrending tropinin I at 0.840<1.220<1.990. Respiratory panel negative. Patient admitted for Acute on chronic respiratory failure/Sepsis secondary to pneumonia and NSTEMI. Patient started on ceftriaxone/azithromycin/solu-medrol/Lasix. ABX changed to vanc/cefepime. Currently requiring 3L of oxygen with noted improvement of oxygen saturation 96 %. OBJECTIVE DATA Vital Signs: Vital Signs - 24 hr Temp Pulse Resp BP BP Pulse Ox 08/23/23 04:00 97.8 F 79 25 H 134/71 98 08/22/23 23:46 98.1 F 93 H 20 121/60 99 08/22/23 19:53 98.1 F 83 23 107/58 98 08/22/23 19:25 94 H 23 97 08/22/23 16:00 97.9 F 91 H 24 119/58 97 08/22/23 14:26 81 22 96 08/22/23 12:00 97.4 F 88 16 135/61 98 08/22/23 10:59 99 H 120/60 08/22/23 07:40 88 16 99 08/22/23 06:36 97.2 F 109 H 16 124/69 100 Pain Assessment - Last Documented Pain Intensity 0 Intake and Output: Intake & Output 08/20/23 08/21/23 08/22/23 08/23/23 11:59 11:59 11:59 11:59 Intake Total 001 665 7986 Output Total 500 200 350 Balance 320 760 930 Weight 37.6 kg 37.7 kg 38.6 kg Lab Results: Lab Results-Last 24 Hours 08/22/23 08/22/23 08/22/23 Range/Units 04:29 08:10 11:32 Sodium 138 (135-145) mmol/L Potassium 3.5 (3.5-5.1) mmol/L Chloride 102 (98-107) mmol/L Carbon Dioxide 30 (22-30) mmol/L Anion Gap 10.1 (5-15) MEQ/L BUN 52 H (7-17) mg/dL Creatinine 0.89 (0.52-1.04) mg/dL Estimated GFR 66.7 ML/MIN Glucose 113 H (74-106) mg/dL Calcium 8.9 (8.4-10.2) mg/dL Magnesium 1.8 (1.6-2.3) mg/dL Total Bilirubin 0.30 (0.2-1.3) mg/dL AST 40 H (14-36) U/L ALT 17 (0-35) U/L Alkaline Phosphatase 62 (38-126) U/L Troponin I 3.080 H* 2.500 H* (0.000-0.034) ng/mL Serum Total Protein 5.6 L (6.3-8.2) g/dL Albumin 3.0 L (3.5-5.0) g/dL Vancomycin Trough (10-20) ug/mL 08/22/23 08/22/23 08/22/23 Range/Units 14:30 17:30 20:30 Sodium (135-145) mmol/L Potassium (3.5-5.1) mmol/L Chloride (98-107) mmol/L Carbon Dioxide (22-30) mmol/L Anion Gap (5-15) MEQ/L BUN (7-17) mg/dL Creatinine (0.52-1.04) mg/dL Estimated GFR ML/MIN Glucose (74-106) mg/dL Calcium (8.4-10.2) mg/dL Magnesium (1.6-2.3) mg/dL Total Bilirubin (0.2-1.3) mg/dL AST (14-36) U/L ALT (0-35) U/L Alkaline Phosphatase (38-126) U/L Troponin I 2.090 H* 1.870 H* (0.000-0.034) ng/mL Serum Total Protein (6.3-8.2) g/dL Albumin (3.5-5.0) g/dL Vancomycin Trough 5.38 L (10-20) ug/mL 08/22/23 Range/Units 20:30 Sodium (135-145) mmol/L Potassium (3.5-5.1) mmol/L Chloride (98-107) mmol/L Carbon Dioxide (22-30) mmol/L Anion Gap (5-15) MEQ/L BUN (7-17) mg/dL Creatinine (0.52-1.04) mg/dL Estimated GFR ML/MIN Glucose (74-106) mg/dL Calcium (8.4-10.2) mg/dL Magnesium (1.6-2.3) mg/dL Total Bilirubin (0.2-1.3) mg/dL AST (14-36) U/L ALT (0-35) U/L Alkaline Phosphatase (38-126) U/L Troponin I 1.410 H* (0.000-0.034) ng/mL Serum Total Protein (6.3-8.2) g/dL Albumin (3.5-5.0) g/dL Vancomycin Trough (10-20) ug/mL Radiology Exams: Radiology Procedures Category Date Time Status ECHO W/2D AND DOPPLER [US] Routine Exams 08/21/23 09:02 Draft Multi-Disciplinary Progress Notes: Multi-Disciplinary Progress Notes 08/22/23 09:37 Case Management Note by Vani Corrales NO CHANGE DC PLANS AT THIS TIME- PATIENT CONTINUES TO PLAN TO DC HOME TO HER PLF AT TIME OF DC. SHE ALREADY HAS C AND FAMILY IS IN AND OUT ALL DAY CHECKING ON HER AT HOME Initialized on 08/22/23 09:37 - END OF NOTE 08/22/23 07:27 Pharmacy Note by Fermín Perez Vancomycin dosed at 500mg iv q24h. Will check trough on and adjust if needed. Initialized on 08/22/23 07:27 - END OF NOTE Assessment/Plan (1) Sepsis Current Visit: Yes Status: Acute Assessment & Plan: -Sepsis criteria identified 08/20/23: 2/2 to pneumonia -Initial WBC at 23, trend 18.7<19.8 <23.8 -CXR demonstrating "consolidating/nonconsolidating airspace disease. Stable COPD, CT proven right lower lobe irregular noncalcified nodule, and scattered fibrosis/scarring.Heart enlarged again with CABG." -Fluid resuscitation contraindicated in the setting of CHF -BNP > 05980, will order echo -Blood cultures x2 ordered and pending, x1 positive for gram + cocci in chains -sputum culture -Antibiotics started 08/20/23 ceftriaxone/azithromycin, will continue -Lactate drawn, now wnl, trend 2.0<2.7<4.8 -Strict I&O with tele -PPI with protonix -Will admin vasopressors is hypotensive after IV admin (MAP <65 or SBP <90). 08/22/23: -No longer meets criteria -IV abx changed to vanc/cefepime, will continue -HR/RR now wnl -WBC trending down 13.9<18.7<19.8<23.8 (2) Pneumonia Current Visit: Yes Status: Acute Qualifiers: Assessment & Plan: -CXR demonstrating "consolidating/nonconsolidating airspace disease. Stable COPD, CT proven right lower lobe irregular noncalcified nodule, and scattered fibrosis/scarring. Heart enlarged again with CABG." -Supplemental oxygen with spo2 goal > 92% -Titrated to 3L with spo2 at 96%, will continue to titrate, baseline is 2L QHS and PRN at home -Ceftriaxone/azith started in ED, will continue -sputum culture -Respiratory panel negative -Solumedrol with titration as appropriate -Consider pulm consult/repeat cxr/ct if no improvement 08/21: -IV abx changed to vanc/cefepime, will continue -Cultures positive for strep pneumo in cultures x 1, sent to regional for confirmation - sensitive to vanc, ceftriaxone changed to cefepime (recent infection with strep pneumo in the past year) other blood/sputum cultures pending Code(s): J18.9 - PNEUMONIA, UNSPECIFIED ORGANISM (3) Acute and chronic respiratory failure ([id number]) Current Visit: Yes Status: Acute Assessment & Plan: -2/2 to pneumonia/COPD exacerbation -Supplemental oxygen with spo2 goal > 92% -Treat underlying pneumonia with ceftriaxone/azithromycin -Solumedrol with titration as appropriate -DuoNebs/bronchodilators -Known RLL lung nodule, being worked up as OP Code(s): J96.20 - ACUTE AND CHR RESP FAILURE, UNSP W HYPOXIA OR HYPERCAPNIA (4) Hyperkalemia Current Visit: Yes Status: Acute Assessment & Plan: 08/19: -Losartan and potassium held, lasix continued -veltassa given 08/20/2308/20: -Resolved, will continue to monitor renal/lytes daily -dc veltassa 08/21: -Resolved, resume losartan Code(s): E87.5 - HYPERKALEMIA (5) NSTEMI (non-ST elevated myocardial infarction) Current Visit: Yes Status: Acute Assessment & Plan: -Trops downtrending 0.840<1.220<1.990 -Most likely demand ischemia -optimize electrolytes with goal K>4, MG >2 -AFIB with controlled HR -Denies CP -She has CAD s/p CABG. The inferior end of the sternotomy scar has a knot/bump, and it appears a wire tip is poking through. She noticed this a week to so ago. No pus, drainage. No fever or chills. She will need to have this looked at by her four h agent soon. 08/20: -ECHO -repeat trop -hold cards consult, patient sees Dr. Matthew 08/21: -Echo from 08/21/23 Impression: -EF 40-45% 1) GLOBAL LEFT VENTRICULAR HYPOKINESIA. THE EJECTION FRACTION BETWEEN 40 TO 45%. 2) MODERATE TO SEVERE MITRAL REGURGITATION. 3) SEVERE TRICUSPID REGURGITATION. RIGHT VENTRICULAR SYSTOLIC PRESSURE OF 72 MM OF MERCURY. 4) MILD PULMONIC INSUFFICIENCY. 5) LEFT VENTRICULAR DIASTOLIC DYSFUNCTION. 6) SEVERELY DILATED LEFT ATRIUM. 7) MILDLY DILATED RIGHT ATRIUM. -EKG with AFIB and right axis deviation -Denies CP -Metoprolol increased to 100mg bid Code(s): I21.4 - NON-ST ELEVATION (NSTEMI) MYOCARDIAL INFARCTION (6) Smoker Current Visit: No Status: Acute Assessment & Plan: -nicotine patch -advised cessation Code(s): F17.200 - NICOTINE DEPENDENCE, UNSPECIFIED, UNCOMPLICATED (7) Atrial fibrillation with RVR Current Visit: No Status: Chronic Assessment & Plan: -HR controlled, on eliquis/metoprolol/digoxin, will continue 08/21: -HR in the 130's increase metoprolol to 100mg bid -Trop elevated at 3.080, will repeat Code(s): I48.91 - UNSPECIFIED ATRIAL FIBRILLATION (8) CHF (congestive heart failure) Current Visit: No Status: Chronic Assessment & Plan: -BNP elevated at >49695 in the setting of sepsis/pneumonia -Supplemental oxygen as appropriate -Monitor for fluid overload/strict I&O -Daily weights -Troponins downtrending 0.840<1.220<1.990 -No recent echo, will order 08/21: -Echo as stated above Code(s): I50.9 - HEART FAILURE, UNSPECIFIED (9) HTN (hypertension) Current Visit: No Status: Chronic Assessment & Plan: -stable Code(s): I10 - ESSENTIAL (PRIMARY) HYPERTENSION (10) Dementia Current Visit: Yes Status: Acute Assessment & Plan: -Continue home medications Aricept Code(s): F03.90 - UNSP DEMENTIA, UNSP SEVERITY, WITHOUT BEH/PSYCH/MOOD/ANX (11) Anemia Current Visit: Yes Status: Acute Assessment & Plan: -normocytic, HGB with noted downtrend 8.3<9.2<10.3, will continue to monitor and replace as appropriate Code(s): D64.9 - ANEMIA, UNSPECIFIED (12) COPD (chronic obstructive pulmonary disease) Current Visit: No Status: Acute Assessment & Plan: -see acute on chronic resp failure VTE: Eliquis PPI: Protonix DispoL 2-3 days (2) Pneumonia Current Visit: Yes Status: Acute Qualifiers: Code(s): J18.9 - PNEUMONIA, UNSPECIFIED ORGANISM (3) Acute and chronic respiratory failure ([id number]) Current Visit: Yes Status: Acute Code(s): J96.20 - ACUTE AND CHR RESP FAILURE, UNSP W HYPOXIA OR HYPERCAPNIA (4) Hyperkalemia Current Visit: Yes Status: Acute Code(s): E87.5 - HYPERKALEMIA (5) NSTEMI (non-ST elevated myocardial infarction) Current Visit: Yes Status: Acute Code(s): I21.4 - NON-ST ELEVATION (NSTEMI) MYOCARDIAL INFARCTION (6) Smoker Current Visit: No Status: Acute Code(s): F17.200 - NICOTINE DEPENDENCE, UNSPECIFIED, UNCOMPLICATED (7) Atrial fibrillation with RVR Current Visit: No Status: Chronic Code(s): I48.91 - UNSPECIFIED ATRIAL FIBRILLATION (8) CHF (congestive heart failure) Current Visit: No Status: Chronic Code(s): I50.9 - HEART FAILURE, U NSPECIFIED (9) HTN (hypertension) Current Visit: No Status: Chronic Code(s): I10 - ESSENTIAL (PRIMARY) H YPERTENSION (10) Dementia Current Visit: Yes Status: Acute Code(s): F03.90 - UNSP DEMENTIA, UNSP SEVERITY, WITHOUT BEH/PSYCH/MOOD/ANX (11) Anemia Current Visit: Yes Status: Acute Code(s): D64.9 - ANEMIA, UNSPECIFIED (12) COPD (chronic obstructive pulmonary disease) Current Visit: No Status: Acute
[2023-08-23 05:08] LABS: Hematocrit 29.5 % (35-47); Hemoglobin 8.8 g/dL (12.0-16.0); Mean Cell Volume 96.4 fL (78-100); Mean Corpuscular Hemoglobin 28.8 pg (26-32); Mean Corpuscular Hgb Concent. 29.8 g/dL (32-36); Mean Platelet Volume 10.2 fL (7.5-11.0); Platelet Count 279 x10^3/uL (150-450); Red Blood Count 3.06 x10^6/uL (4.1-5.4); Red Cell Distribution Width 13.9 % (11.5-14.0)
[2023-08-23 05:36] LABS: ALBUMIN 3.1 g/dL (3.5-5.0); ANION GAP 9.3 MEQ/L (5-15); BILIRUBIN,TOTAL 0.2 mg/dL (0.2-1.3); Calcium 8.1 mg/dL (8.4-10.2); Creatinine 1 0.88 mg/dL (0.52-1.04); EST GLOMERULAR FILTRATION RATE 67.6 ML/MIN; Total Protein 5.9 g/dL (6.3-8.2)
[2023-08-23] MEDS ORDERED: Klor Con ONE (06:07)
[2023-08-23] MEDS: Klor Con PO ONE ×3 (06:23→08:12)
[2023-08-23] MEDS: Lanoxin 0.125MG TABLET PO SCH (09:08)
--- NOTE | 2023-08-23 10:35 | PCM.DS ---
Discharge Summary Date of Admission: 08/20/23 01:55 Date of Discharge: 08/23/23 Admitting Physician: MIRNA CHU DO Consults: Consults on Case 08/20/23 07:30 Consult Cardiology ROUTINE Primary Care Provider: KIM GOLDMAN Allergies Allergies propofol Adverse Reaction (Severe, Verified 08/20/23 00:17) family states "really crazy and confused with her heart surgery" amiodarone Adverse Reaction (Unknown, Verified 08/20/23 00:17) pt and daughter states "not sure" cardiol. stated allergy Hospital Summary - Hospital Course Hospital Course: Ms. Brown is a 78 year old female with a pmhx of dementia, CHF, CAD, HTN, COPD (baseline oxygen 2L at QHS and prn), and bladder cancer who presented to ED 08/20/23 with complaints of a four day history of shortness of breath and productive cough . Oxygen saturation on arrival was 86-87% on 3L. CXR demonstrating RUL consolidating/noncolidating airspace disease. Of note patient does have RLL known calcified nodule re-identified on this exam, patient states her ski topper (Dr. Calloway) is aware of this finding, will follow up as op. Initial Lab findings remarkable for leukocytosis with WBC at 19.3, hgb at 10.3, hyperkalemia at 5.6, BNP >25690, downtrending tropinin I at 0.840<1.220<1.990. Respiratory panel negative. Patient admitted for Acute on chronic respiratory failure/Sepsis secondary to pneumonia and NSTEMI. Patient started on ceftriaxone/azithromycin/solu-medrol/Lasix. ABX changed to vanc/cefepime with noted improvement to dyspnea. Labs improved. Currently requiring 2L of oxygen which is her home baseline. Patient does have chronic AFIB and HR was elevated during her stay in the 130's, as well as her troponins. There was some ST changes on her EKG. Patient denies chest pain. Case discussed with Dr. Matthew patient's magnetic doctor, Echo and strips reviewed, most likely due to AFIB/demand ischemia, recommendations to increase metoprolol to 100mg bid and digoxin to 0.125mg. HR now controlled. She will follow up in office s/p discharge. She is also advised to follow up with her PCP as well as Pulm. Discharge Note New Diagnosis: Pneumonia New Medications: cefpodoxime, medrol dose pack, digoxin/metoprolol changed. Follow Up: PCP/Cardiology/Pulm Results pending: sputum culture/blood culture Latest Assessment & Plan (1) Sepsis Current Visit: Yes Status: Acute Assessment & Plan: -Sepsis criteria identified 08/20/23: 2/2 to pneumonia -Initial WBC at 23, trend 18.7<19.8 <23.8 -CXR demonstrating "consolidating/nonconsolidating airspace disease. Stable COPD, CT proven right lower lobe irregular noncalcified nodule, and scattered fibrosis/scarring.Heart enlarged again with CABG." -Fluid resuscitation contraindicated in the setting of CHF -BNP > 35363, will order echo -Blood cultures x2 ordered and pending, x1 positive for gram + cocci in chains -sputum culture -Antibiotics started 08/20/23 ceftriaxone/azithromycin, will continue -Lactate drawn, now wnl, trend 2.0<2.7<4.8 -Strict I&O with tele -PPI with protonix -Will admin vasopressors is hypotensive after IV admin (MAP <65 or SBP <90). 08/22/23: -No longer meets criteria -IV abx changed to vanc/cefepime, will continue -HR/RR now wnl -WBC trending down 13.9<18.7<19.8<23.8 (2) Pneumonia Current Visit: Yes Status: Acute Qualifiers: Assessment & Plan: -CXR demonstrating "consolidating/nonconsolidating airspace disease. Stable COPD, CT proven right lower lobe irregular noncalcified nodule, and scattered fibrosis/scarring. Heart enlarged again with CABG." -Supplemental oxygen with spo2 goal > 92% -Titrated to 3L with spo2 at 96%, will continue to titrate, baseline is 2L QHS and PRN at home -Ceftriaxone/azith started in ED, will continue -sputum culture -Respiratory panel negative -Solumedrol with titration as appropriate -Consider pulm consult/repeat cxr/ct if no improvement 08/21: -IV abx changed to vanc/cefepime, will continue -Cultures positive for strep pneumo in cultures x 1, sent to [facility] for confirmation - sensitive to vanc, ceftriaxone changed to cefepime (recent infection with strep pneumo in the past year) other blood/sputum cultures pending Code(s): J18.9 - PNEUMONIA, UNSPECIFIED ORGANISM (3) Acute and chronic respiratory failure ([id number]) Current Visit: Yes Status: Acute Assessment & Plan: -2/2 to pneumonia/COPD exacerbation -Supplemental oxygen with spo2 goal > 92% -Treat underlying pneumonia with ceftriaxone/azithromycin -Solumedrol with titration as appropriate -DuoNebs/bronchodilators -Known RLL lung nodule, being worked up as OP Code(s): J96.20 - ACUTE AND CHR RESP FAILURE, UNSP W HYPOXIA OR HYPERCAPNIA (4) Hyperkalemia Current Visit: Yes Status: Acute Assessment & Plan: 08/19: -Losartan and potassium held, lasix continued -veltassa given 08/20/2308/20: -Resolved, will continue to monitor renal/lytes daily -dc veltassa 08/21: -Resolved, resume losartan Code(s): E87.5 - HYPERKALEMIA (5) NSTEMI (non-ST elevated myocardial infarction) Current Visit: Yes Status: Acute Assessment & Plan: -Trops downtrending 0.840<1.220<1.990 -Most likely demand ischemia -optimize electrolytes with goal K>4, MG >2 -AFIB with controlled HR -Denies CP -She has CAD s/p CABG. The inferior end of the sternotomy scar has a knot/bump, and it appears a wire tip is poking through. She noticed this a week to so ago. No pus, drainage. No fever or chills. She will need to have this looked at by her magnetic doctor soon. 08/20: -ECHO -repeat trop -hold cards consult, patient sees Dr. Matthew 08/21: -Echo from 08/21/23 Impression: -EF 40-45% 1) GLOBAL LEFT VENTRICULAR HYPOKINESIA. THE EJECTION FRACTION BETWEEN 40 TO 45%. 2) MODERATE TO SEVERE MITRAL REGURGITATION. 3) SEVERE TRICUSPID REGURGITATION. RIGHT VENTRICULAR SYSTOLIC PRESSURE OF 72 MM OF MERCURY. 4) MILD PULMONIC INSUFFICIENCY. 5) LEFT VENTRICULAR DIASTOLIC DYSFUNCTION. 6) SEVERELY DILATED LEFT ATRIUM. 7) MILDLY DILATED RIGHT ATRIUM. -EKG with AFIB and right axis deviation -Denies CP -Metoprolol increased to 100mg bid -Case discussed with Dr. Matthew patient's magnetic doctor, Echo and strips reviewed, most likely due to AFIB/demand ischemia, recommendations to increase metoprolol to 100mg bid and digoxin to 0.125mg. Code(s): I21.4 - NON-ST ELEVATION (NSTEMI) MYOCARDIAL INFARCTION (6) Smoker Current Visit: No Status: Acute Assessment & Plan: -nicotine patch -advised cessation Code(s): F17.200 - NICOTINE DEPENDENCE, UNSPECIFIED, UNCOMPLICATED (7) Atrial fibrillation with RVR Current Visit: No Status: Chronic Assessment & Plan: -HR controlled, on eliquis/metoprolol/digoxin, will continue 08/21: -HR in the 130's increase metoprolol to 100mg bid -Trop elevated at 3.080, will repeat Code(s): I48.91 - UNSPECIFIED ATRIAL FIBRILLATION (8) CHF (congestive heart failure) Current Visit: No Status: Chronic Assessment & Plan: -BNP elevated at >14490 in the setting of sepsis/pneumonia -Supplemental oxygen as appropriate -Monitor for fluid overload/strict I&O -Daily weights -Troponins downtrending 0.840<1.220<1.990 -No recent echo, will order 08/21: -Echo as stated above Code(s): I50.9 - HEART FAILURE, UNSPECIFIED (9) HTN (hypertension) Current Visit: No Status: Chronic Assessment & Plan: -stable Code(s): I10 - ESSENTIAL (PRIMARY) HYPERTENSION (10) Dementia Current Visit: Yes Status: Acute Assessment & Plan: -Continue home medications Aricept Code(s): F03.90 - UNSP DEMENTIA, UNSP SEVERITY, WITHOUT BEH/PSYCH/MOOD/ANX (11) Anemia Current Visit: Yes Status: Acute Assessment & Plan: -normocytic, HGB with noted downtrend 8.3<9.2<10.3, will continue to monitor and replace as appropriate Code(s): D64.9 - ANEMIA, UNSPECIFIED (12) COPD (chronic obstructive pulmonary disease) Current Visit: No Status: Acute Assessment & Plan: -see acute on chronic resp failure I spent 35 minutes [id number] with the patient on the day of discharge performing discharge exam, discussing hospital stay and discharge instructions with patient and caregivers, preparation of discharge records, prescriptions & referral forms and addressing any questions/concerns the patient had as documented above. - Vitals & Intake/Output Vital Signs: Vital Signs Temperature 97.6 F 08/23/23 06:56 Pulse Rate 79 08/23/23 09:08 Respiratory Rate 16 08/23/23 07:09 Blood Pressure 125/72 08/23/23 06:56 O2 Sat by Pulse Oximetry 99 08/23/23 07:09 Intake & Output: Intake & Output 08/20/23 08/21/23 08/22/23 08/23/23 11:59 11:59 11:59 11:59 Intake Total 286 104 8263 Output Total 500 200 350 Balance 306 187 6262 Weight 37.6 kg 37.7 kg 38.6 kg 39 kg - Lab Result Diagrams: 08/23/23 04:46 08/23/23 04:46 Lab Results-Last 24 Hrs: Lab Results-Last 24 Hours 08/22/23 08/22/23 08/22/23 Range/Units 11:32 14:30 17:30 WBC (4.0-10.5) x10^3/uL RBC (4.1-5.4) x10^6/uL Hgb (12.0-16.0) g/dL Hct (35-47) % MCV (78-100) fL MCH (26-32) pg MCHC (32-36) g/dL RDW (11.5-14.0) % Plt Count (150-450) x10^3/uL MPV (7.5-11.0) fL Sodium (135-145) mmol/L Potassium (3.5-5.1) mmol/L Chloride (98-107) mmol/L Carbon Dioxide (22-30) mmol/L Anion Gap (5-15) MEQ/L BUN (7-17) mg/dL Creatinine (0.52-1.04) mg/dL Estimated GFR ML/MIN Glucose (74-106) mg/dL Calcium (8.4-10.2) mg/dL Magnesium (1.6-2.3) mg/dL Total Bilirubin (0.2-1.3) mg/dL AST (14-36) U/L ALT (0-35) U/L Alkaline Phosphatase (38-126) U/L Troponin I 2.500 H* 2.090 H* 1.870 H* (0.000-0.034) ng/mL Serum Total Protein (6.3-8.2) g/dL Albumin (3.5-5.0) g/dL Vancomycin Trough (10-20) ug/mL 08/22/23 08/22/23 08/23/23 Range/Units 20:30 20:30 04:46 WBC 11.0 H (4.0-10.5) x10^3/uL RBC 3.06 L (4.1-5.4) x10^6/uL Hgb 8.8 L (12.0-16.0) g/dL Hct 29.5 L (35-47) % MCV 96.4 (78-100) fL MCH 28.8 (26-32) pg MCHC 29.8 L (32-36) g/dL RDW 13.9 (11.5-14.0) % Plt Count 279 (150-450) x10^3/uL MPV 10.2 (7.5-11.0) fL Sodium (135-145) mmol/L Potassium (3.5-5.1) mmol/L Chloride (98-107) mmol/L Carbon Dioxide (22-30) mmol/L Anion Gap (5-15) MEQ/L BUN (7-17) mg/dL Creatinine (0.52-1.04) mg/dL Estimated GFR ML/MIN Glucose (74-106) mg/dL Calcium (8.4-10.2) mg/dL Magnesium (1.6-2.3) mg/dL Total Bilirubin (0.2-1.3) mg/dL AST (14-36) U/L ALT (0-35) U/L Alkaline Phosphatase (38-126) U/L Troponin I 1.410 H* (0.000-0.034) ng/mL Serum Total Protein (6.3-8.2) g/dL Albumin (3.5-5.0) g/dL Vancomycin Trough 5.38 L (10-20) ug/mL 08/23/23 08/23/23 Range/Units 04:46 05:56 WBC (4.0-10.5) x10^3/uL RBC (4.1-5.4) x10^6/uL Hgb (12.0-16.0) g/dL Hct (35-47) % MCV (78-100) fL MCH (26-32) pg MCHC (32-36) g/dL RDW (11.5-14.0) % Plt Count (150-450) x10^3/uL MPV (7.5-11.0) fL Sodium 138 (135-145) mmol/L Potassium 3.0 L* (3.5-5.1) mmol/L Chloride 100 (98-107) mmol/L Carbon Dioxide 31 H (22-30) mmol/L Anion Gap 9.3 (5-15) MEQ/L BUN 48 H (7-17) mg/dL Creatinine 0.88 (0.52-1.04) mg/dL Estimated GFR 67.6 ML/MIN Glucose 107 H (74-106) mg/dL Calcium 8.1 L (8.4-10.2) mg/dL Magnesium 2.0 1.9 (1.6-2.3) mg/dL Total Bilirubin 0.20 (0.2-1.3) mg/dL AST 48 H (14-36) U/L ALT 25 (0-35) U/L Alkaline Phosphatase 62 (38-126) U/L Troponin I (0.000-0.034) ng/mL Serum Total Protein 5.9 L (6.3-8.2) g/dL Albumin 3.1 L (3.5-5.0) g/dL Vancomycin Trough (10-20) ug/mL Micro Results-Entire Visit: Microbiology 08/20/23 00:53 Blood Culture Gram Stain - Final Blood Blood Culture - Final 08/20/23 04:24 Blood Culture - Preliminary Blood - Procedures and Test Procedures and Tests throughout Hospitalization: Therapy Orders & Screens 08/20/23 00:06 Respiratory Therapy Assessment DAILY Comment: 08/20/23 02:13 Oxygen Nasal Cannula 4 lpm Comment: Respiratory Therapy Consult ONCE Comment: Reason For Exam: 08/20/23 03:36 RT Screen per Nursing Assess ONCE Comment: Protocol Order Physician Instructions: Greater than 3 points order RT Admission Screen Reason For Exam: Triggered on Admission Diagnosis: SOB Diagnosis: SOB Pneumonia: Yes Home O2: Yes: 2 Asthma: No CHF: Yes Home CPAP/BIPAP: No Home Nebs/MDI: Yes Total Points: 16 Smoking Cessation Education ONCE Comment: Diagnosis: SOB Smoking Status: Current every day smoker How long have you smoked: 65 yrs Have you smoked in the past 12 months: Yes Approximately how many cigarettes per day: less than 1 pack Do you dip or chew tobacco: No If,Former Smoker,when did you quit: 01/17/22 08/20/23 06:53 Flutter Therapy UD Comment: Diagnosis: SOB 08/21/23 12:21 Incentive Spirometry UD Comment: Diagnosis: SOB 08/22/23 07:37 EKG STAT Comment: Diagnosis: SOB Discharge Exam General Appearance: no apparent distress Neurologic Exam: alert, oriented x 3, cooperative Eye Exam: PERRL Ears, Nose, Throat Exam: normal ENT inspection Neck Exam: normal inspection Respiratory Exam: crackles/rales Cardiovascular Exam: regular rate/rhythm, normal heart sounds Gastrointestinal/Abdomen Exam: soft, normal bowel sounds Pelvic Exam: deferred Rectal Exam: deferred Back Exam: normal inspection Extremity Exam: normal inspection Skin Exam: normal color Final Diagnosis/Problem List - Final Discharge Diagnosis/Problem (1) Sepsis Current Visit: Yes Status: Resolved (2) Pneumonia Current Visit: Yes Status: Acute Code(s): J18.9 - PNEUMONIA, UNSPECIFIED ORGANISM (3) Acute and chronic respiratory failure ([id number]) Current Visit: Yes Status: Resolved Code(s): J96.20 - ACUTE AND CHR RESP FAILURE, UNSP W HYPOXIA OR HYPERCAPNIA (4) Hyperkalemia Current Visit: Yes Status: Resolved Code(s): E87.5 - HYPERKALEMIA (5) NSTEMI (non-ST elevated myocardial infarction) Current Visit: Yes Status: Resolved Code(s): I21.4 - NON-ST ELEVATION (NSTEMI) MYOCARDIAL INFARCTION (6) Smoker Current Visit: No Status: Chronic Code(s): F17.200 - NICOTINE DEPENDENCE, UNSPECIFIED, UNCOMPLICATED (7) Atrial fibrillation with RVR Current Visit: No Status: Chronic Code(s): I48.91 - UNSPECIFIED ATRIAL FIBRILLATION (8) CHF (congestive heart failure) Current Visit: No Status: Chronic Code(s): I50.9 - HEART FAILURE, UNSPECIFIED (9) HTN (hypertension) Current Visit: No Status: Chronic Code(s): I10 - ESSENTIAL (PRIMARY) HYPERTENSION (10) Dementia Current Visit: Yes Status: Chronic Code(s): F03.90 - UNSP DEMENTIA, UNSP S [place], WITHOUT BEH/PSYCH/MOOD/ANX (11) Anemia Current Visit: Yes Status: Chronic Code(s): D64.9 - ANEMIA, UNSPECIFIED (12) COPD (chronic obstructive pulmonary disease) Current Visit: No Status: Chronic - Discharge Disposition: Home, Self-Care Condition: Fair Prescriptions: New Digoxin 0.125 mg Tablet [Lanoxin 0.125MG TABLET] 0.125 mg PO DAILY 30 Days #30 tablet Metoprolol Tartrate 50 mg [Lopressor 50 MG] 100 mg PO BID 30 Days #120 tablet Methylprednisolone Packet [Medrol Dosepack] 4 mg PO UD #30 packet Guaifenesin 600 mg ER [Mucinex 600MG ER Tabs] 600 mg PO BID 7 Days #14 tablet Cefpodoxime Proxetil 200 mg [Vantin 200 mg] 200 mg PO BID 7 Days #14 tablet Continue Furosemide 20 mg [Lasix 20 mg] 20 mg PO DAILY Potassium Chloride 20 Meq Tab [Potassium Chloride 20 MEQ TABLET] 20 meq PO BID Losartan Potassium 50 mg [Cozaar 50 MG] 50 mg PO BID Pravastatin Sodium 40 mg PO QHS Calcium Carbonate/Vitamin D3 [Calcium 500-Vit D3 125 Caplet] 1 each PO BID Apixaban [Eliquis 5 mg Tablet] 5 mg PO BID Aspirin 81 gm Chew [Baby Aspirin 81 mg Chew] 81 mg PO DAILY Donepezil HCl [Aricept] 5 mg PO HS Ipratropium/Albuterol Sulfate [Iprat-Albut 0.5-3(2.5) mg/3 ml] 1 neb IN QID Escitalopram Oxalate [Lexapro] 10 mg PO HS Mv-Min/Iron/Folic/Calcium/Vitk [Women's Multivitamin Tablet] 1 tab PO DAILY Melatonin 5 mg PO HS Iron 365 mg PO DAILY Discontinued Digoxin 0.125 mg Tablet [Lanoxin 0.125MG TABLET] 0.0625 mg PO DAILY Metoprolol Tartrate 50 mg [Lopressor 50 MG] 50 mg PO BID Follow up with: KIM GOLDMAN MD [Primary Care Provider] - 08/31/23 10:45 am CAREY MATTHEW [CONSULTING PHYSICIAN] - MARTI CALLOWAY [ACTIVE STAFF] -
[2023-08-23 13:13] VITALS: BP 126/70; PULSE 70; RESP 24; TEMP 97.1; O2SAT 98
[2023-08-24] MEDS ORDERED: TROUGH DRUG LEVELS IJ ONE (19:30)
== END 2023-08-23 13:03 | disposition home health service (06) | DRG 871 ==
LOC: ED 23:54 → MED SURG 08-20 01:55 → OBSVTOIN 08-20 01:55
PROVIDERS: ADMIT Internal Medicine; ATTEND Internal Medicine
DX: A41.9 Sepsis, unspecified organism (principal); I21.4 Non-ST elevation (NSTEMI) myocardial infarction; J18.9 Pneumonia, unspecified organism; J96.20 Acute and chronic respiratory failure, unspecified whether with hypoxia or hypercapnia; E87.5 Hyperkalemia; F17.200 Nicotine dependence, unspecified, uncomplicated; I48.91 Unspecified atrial fibrillation; I11.0 Hypertensive heart disease with heart failure; I50.9 Heart failure, unspecified; F03.90 Unspecified dementia, unspecified severity, without behavioral disturbance, psychotic disturbance, mood disturbance, and anxiety; D64.9 Anemia, unspecified; J44.9 Chronic obstructive pulmonary disease, unspecified; I25.10 Atherosclerotic heart disease of native coronary artery without angina pectoris; Z79.01 Long term (current) use of anticoagulants; Z79.899 Other long term (current) drug therapy; Z20.828 Contact with and (suspected) exposure to other viral communicable diseases; Z99.81 Dependence on supplemental oxygen; Z85.51 Personal history of malignant neoplasm of bladder; Z95.0 Presence of cardiac pacemaker
CPT/HCPCS: 0241U; 36000; 36415; 71045; 80048; 80053; 80162; 80202; 81001; 83605; 83735; 83880; 84132; 84484; 85025; 85027; 87040; 93005; 93041; 93306; 94640; 94667; 94668; 94762; 96374; 99285; Q3014; J0456; J0692; J0696; J1200; J1940; J2920; J2930; J3370; A9270-GY